=== PATIENT | male | born 1955 | race Caucasian/White ===

== ENCOUNTER → 2017-11-30 08:36 | Outpatient (CLI) | payer BC, SELFPAY ==
--- NOTE | 2017-11-30 08:54 | RAD_ITS ---
STUDY: X-RAY - LEFT SHOULDER REASON FOR EXAM: Male, 62 years old. Pain of the left shoulder. TECHNIQUE: 4 view(s) of the shoulder. COMPARISON: None. FINDINGS: Normally located glenohumeral joint with narrowing and marginal osteophytosis. Normal alignment of the acromioclavicular joint with advanced narrowing and marginal osteophytosis. Normal acromion. Height per trophy and degenerative cyst formation of the greater tubercle. The soft tissue structures are unremarkable. Normal visualized pulmonary apex. RAD/Shoulder min 2 Views IMPRESSION: Moderately advanced degenerative arthritis of the glenohumeral joint. 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 Hypertrophic and cystic degenerative changes of the greater tubercle. Electronically Signed: Sweetie Estrella MD at 16:53 EDT , Service support ,
--- NOTE | 2017-11-30 08:54 | RAD_ITS ---
STUDY: X-RAY - RIGHT SHOULDER REASON FOR EXAM: Male, 62 years old. Right shoulder pain TECHNIQUE: 4 view(s) of the shoulder. COMPARISON: None. FINDINGS: Normally located glenohumeral joint with narrowing and extensive marginal osteophytosis. Normally located acromioclavicular joint with moderately advanced degenerative arthrosis. Normal acromion. Large medial osteophyte of the humeral head. The soft tissue structures are unremarkable. Normal visualized pulmonary apex. RAD/Shoulder min 2 Views IMPRESSION: Narrowing and marginal osteophytosis of the glenohumeral joint. Moderately advanced degenerative arthrosis of the right acromioclavicular joint. Negative for fracture or dislocation. Electronically Signed: Sweetie Estrella MD at 17:30 EDT , Service support ,
[2017-11-30 10:25] LABS: Anion Gap 8 (5-15); BUN 26 mg/dL (7-18); BUN/Creat Ratio 19.8 RATIO (10-20); Calcium,Total 8.5 mg/dL (8.5-10.1); Chloride 109 mmol/L (98-107); Cholesterol 157 mg/dL (200); Creatinine, Serum 1.31 mg/dL (0.70-1.30); EST Glomerular Filtration Rate 59 mL/min (>60); Est Glom Filt Rate - Afr Amer 71 mL/min (>60); Glucose 85 mg/dL (74-106); High Density Lipoprotein 37 mg/dL; Potassium 4.1 mmol/L (3.5-5.1); Sodium Level 145 mmol/L (136-145); Triglycerides 159 mg/dL; Very Low Density Lipoprotein 32 mg/dL (5-40)
== END ==
LOC: MFPLAB 08:37 → MTRAD 08:38 → HPRAD 08:45
PROVIDERS: Family Provider Family Medicine; PCP Family Medicine; Visit Provider Family Medicine
DX: M19.012 Primary osteoarthritis, left shoulder (principal); M19.011 Primary osteoarthritis, right shoulder; M25.712 Osteophyte, left shoulder; M25.711 Osteophyte, right shoulder; I48.91 Unspecified atrial fibrillation
CPT/HCPCS: 36415; 73030; 80048; 80061

== ENCOUNTER → 2018-06-21 11:04 | Outpatient (CLI) | payer BC, SELFPAY | PROVIDERS: Family Provider Family Medicine; PCP Family Medicine; Visit Provider Family Medicine | DX: I10 Essential (primary) hypertension (principal) ==

== ENCOUNTER → 2018-06-21 14:22 | Outpatient (CLI) | payer BC, SELFPAY ==
[2018-06-21 12:48] LABS: Anion Gap 5 (5-15); BUN 21 mg/dL (7-18); BUN/Creat Ratio 17.1 RATIO (10-20); Calcium,Total 8.8 mg/dL (8.5-10.1); Chloride 103 mmol/L (98-107); Creatinine, Serum 1.23 mg/dL (0.70-1.30); EST Glomerular Filtration Rate 63 mL/min (>60); Est Glom Filt Rate - Afr Amer 76 mL/min (>60); Glucose 77 mg/dL (74-106); Potassium 3.5 mmol/L (3.5-5.1); Sodium Level 137 mmol/L (136-145)
--- OUTSIDE RECORDS SUMMARY | 2018-12-23 18:38 | XMS RPT_ITS | CCD ---
:1955 External Reference #:[id number] Author Organization [facility] Care Team Providers Name Role Phone Unavailable Unavailable Unavailable Allergies Reported Allergen Reaction(s) Severity Date of Onset Location Seasonal allergy 09-04-2012 - [facility] Main Translations: [ SEASONAL [place] Repository ALLERGIES] Medications Medication Name Sig Date Prescriber Location amLODIPine NORVASC 5 MG TABS One 05-03-2016 [facility] tablet by mouth daily Group ([id number]) AMLODIPINE BESYLATE [id number] Unique Fong PA-C NORVASC 10 MG TABS One tablet 05-03-2016 MD [facility] by mouth daily (35531) AMLODIPINE BESYLATE [id number] Brody Bae MD NORVASC 5 MG TABS One tablet 05-03-2016 [facility] by mouth daily (36975) AMLODIPINE BESYLATE [id number] Unique Fong PA-C NORVASC 10 MG TABS One tablet 05-03-2016 MD [facility] by mouth daily (95799) AMLODIPINE BESYLATE [id number] Brody Bae MD NORVASC 5 MG TABS One tablet 05-03-2016 [facility] by mouth daily (87114) AMLODIPINE BESYLATE [id number] Unique Fong PA-C NORVASC 5 MG TABS One tablet 05-03-2016 [facility] by mouth daily (46955) AMLODIPINE BESYLATE [id number] Unique Fong PA-C NORVASC 5 MG TABS One tablet 05-03-2016 Mia Vang RN [facility] by mouth daily (35663) AMLODIPINE BESYLATE [id number] Unique Fong PA-C fexofenadine FEXOFENADINE HCL 180 MG TABS One 02-02-2016 [facility] (24012) tablet by mouth daily FEXOFENADINE HCL [id number] Luisana A Kelsey RN FEXOFENADINE HCL 180 MG TABS One tablet by 02-02-2016 [facility] (96695) mouth daily FEXOFENADINE HCL 27342779702 Luisana A Kelsey RN FEXOFENADINE HCL 180 MG TABS One tablet by 02-02-2016 [facility] (18736) mouth daily FEXOFENADINE HCL 70570231643 Luisana A Kelsey RN FEXOFENADINE HCL 180 MG TABS One tablet by 02-02-2016 [facility] (07543) mouth daily FEXOFENADINE HCL 65234688298 Luisana A Kelsey RN FEXOFENADINE HCL 180 MG TABS One tablet by 02-02-2016 [facility] (19642) mouth daily FEXOFENADINE HCL 87610480958 Luisanaramila Coel RN lisinopril LISINOPRIL 20 MG TABS 02-02-2016 Mia Vang RN [facility] One tablet by mouth (20665) daily LISINOPRIL [id number] Unique Fong PA-C LISINOPRIL 10 MG TABS One 02-02-2016 Brody Bae MD [facility] tablet by mouth daily (62214) LISINOPRIL [id number] Brody Bae MD LISINOPRIL 20 MG TABS One 02-02-2016 Mia Vang RN [facility] tablet by mouth daily (33058) LISINOPRIL [id number] Unique Fong PA-C LISINOPRIL 10 MG TABS One 02-02-2016 Brody Bae MD [facility] tablet by mouth daily (42041) LISINOPRIL 49483785306 Brody Bae MD LISINOPRIL 20 MG TABS One 02-02-2016 Mia Vang RN [facility] tablet by mouth daily (12166) LISINOPRIL 21669723184 Unique Fong PA-C LISINOPRIL 10 MG TABS One 02-02-2016 Brody Bae MD [facility] tablet by mouth daily (10098) LISINOPRIL 22644361898 Brody Bae MD LISINOPRIL 20 MG TABS One 02-02-2016 Mia Vang RN [facility] tablet by mouth daily (92146) LISINOPRIL 18901047728 Unique Fong PA-C LISINOPRIL 10 MG TABS One 02-02-2016 Brody Bae MD [facility] tablet by mouth daily (16833) LISINOPRIL 57332996206 Brody Bae MD LISINOPRIL 20 MG TABS One 02-02-2016 Mia Vang RN [facility] tablet by mouth daily (84710) LISINOPRIL 14435961737 Unique Fong PA-C LISINOPRIL 10 MG TABS One 02-02-2016 Brody Bae MD [facility] tablet by mouth daily (63374) LISINOPRIL [id number] Brody Bae MD LORazepam LORAZEPAM 0.5 MG TABS One tablet 02-02-2016 [facility] (60654) by mouth twice daily as needed LORAZEPAM [id number] Luisana Cole RN LORAZEPAM 0.5 MG TABS One tablet by mouth 02-02-2016 [facility] (33327) twice daily as needed LORAZEPAM 75637987291 Luisana Cole RN LORAZEPAM 0.5 MG TABS One tablet by mouth 02-02-2016 [facility] (78322) twice daily as needed LORAZEPAM 17877548633 Luisana A Kelsey RN LORAZEPAM 0.5 MG TABS One tablet by mouth 02-02-2016 [facility] (67984) twice daily as needed LORAZEPAM [id number] Luisana A Kelsey RN LORAZEPAM 0.5 MG TABS One tablet by mouth 02-02-2016 [facility] (07783) twice daily as needed LORAZEPAM [id number] Luisana Edward Kelsey RN metoprolol TOPROL XL 50 MG [id number] 02-02-2016 Brody Bae MD [facility] One tablet by mouth daily (07799) METOPROLOL SUCCINATE [id number] Brody Bae MD METOPROLOL TARTRATE 50 MG TABS 02-02-2016 [facility] One tablet by mouth twice (70547) daily METOPROLOL TARTRATE [id number] Luisanaramila Cole RN TOPROL XL 50 MG [id number] One 02-02-2016 Brody Bae MD [facility] tablet by mouth daily (28268) METOPROLOL SUCCINATE 43430859805 Brody Bae MD METOPROLOL TARTRATE 50 MG TABS 02-02-2016 [facility] One tablet by mouth twice (18919) daily METOPROLOL TARTRATE 52120882396 Luisana Cole RN TOPROL XL 50 MG [id number] One 02-02-2016 Brody Bae MD [facility] tablet by mouth daily (24963) METOPROLOL SUCCINATE [id number] Brody Bae MD METOPROLOL TARTRATE 50 MG TABS 02-02-2016 [facility] One tablet by mouth twice (26392) daily METOPROLOL TARTRATE 45163584159 Luisanaramila Cole RN TOPROL XL 50 MG [id number] One 02-02-2016 Brody Bae MD [facility] tablet by mouth daily (17806) METOPROLOL SUCCINATE [id number] Brody Bae MD METOPROLOL TARTRATE 50 MG TABS 02-02-2016 [facility] One tablet by mouth twice (39382) daily METOPROLOL TARTRATE [id number] Luisana Cole RN TOPROL XL 50 MG [id number] One 02-02-2016 Brody Bae MD [facility] tablet by mouth daily (61740) METOPROLOL SUCCINATE 73220556802 Brody Bae MD METOPROLOL TARTRATE 50 MG TABS 02-02-2016 [facility] One tablet by mouth twice (70483) daily METOPROLOL TARTRATE 42396235071 Luisana Cole RN PARoxetine PAROXETINE HCL 20 MG TABS One 02-02-2016 [facility] (68714) tablet by mouth daily PAROXETINE HCL 17646812468 Luisana Cole RN PAROXETINE HCL 20 MG TABS One 02-01-2015 - 01-26-2017 [facility] (67587) tablet by mouth daily PAROXETINE HCL 80897784570 Unique Fong PA-C potassium chloride KLOR-CON M20 20 MEQ CR-TABS 02-02-2016 [facility] One tablet by mouth daily (55149) POTASSIUM CHLORIDE ISMAEL CR 63079045740 Luisana Cole RN KLOR-CON M20 20 MEQ CR-TABS One 02-01-2015 - 02-02-2016 [facility] (87313) tablet by mouth daily POTASSIUM CHLORIDE ISMAEL CR 07297839808 Brody Bae MD KLOR-CON M20 20 MEQ CR-TABS One 02-02-2016 [facility] (68057) tablet by mouth daily POTASSIUM CHLORIDE ISMAEL CR [id number] Luisana Cole RN KLOR-CON M20 20 MEQ CR-TABS One 02-01-2015 - 02-02-2016 [facility] (76696) tablet by mouth daily POTASSIUM CHLORIDE ISMAEL CR 93579058056 Brody Bae MD KLOR-CON M20 20 MEQ CR-TABS One 02-02-2016 [facility] (76601) tablet by mouth daily POTASSIUM CHLORIDE ISMAEL CR 97082717454 Luisana Cole RN rivaroxaban XARELTO 20 MG TABS One 02-02-2016 MD [facility] tablet by mouth daily (27054) RIVAROXABAN [id number] Brody Bae MD XARELTO 20 MG TABS One tablet 02-02-2016 MD [facility] by mouth daily (30570) RIVAROXABAN [id number] Brody Bae MD XARELTO 20 MG TABS One tablet 02-02-2016 MD [facility] by mouth daily (02897) RIVAROXABAN [id number] Brody Bae MD XARELTO 20 MG TABS One tablet 02-02-2016 Brody Bae MD [facility] by mouth daily (23486) RIVAROXABAN [id number] Brody Bae MD XARELTO 20 MG TABS One tablet 02-02-2016 MD [facility] by mouth daily (91064) RIVAROXABAN [id number] Brody Bae MD Problems Category Problem Name Status Date Location Acute and unspecified Renal failure syndrome Active 05-03-2016 - [facility] renal failure (52425) Cardiac dysrhythmias Persistent atrial Active 02-01-2016 - [facility] fibrillation (24876) Essential hypertension Hypertensive disorder Active 02-02-2016 - [facility] (62253) Non-Hodgkin`s lymphoma Follicular lymphoma, Active 06-18-2012 - [facility] unspecified, [place] (75353) intra-abdominal lymph nodes Other nutritional; Body mass index (BMI) Active 05-03-2016 - [facility] endocrine; and 31.0-31.9, adult (59450) metabolic disorders Unclassified Active 05-23-2018 - [facility] (33385) Unclassified Body mass index (BMI) Active 05-03-2016 - [facility] 31.0-31.9, adult (01934) Results Result Name Value Range Unit Interpretation Flag Date Location progress on 2018-05-21 Protein mass conc HNO ID: [id number] Normal 05-21-2018 [facility] Author: Yoko Green [facility] ([id number]) Service: (none) Author Type: (none) Type: Progress Notes Filed: 05/21/2018 9:26 AM Note Text: Radiology Service Progress Note PATIENT NAME: Sirisha De Leon DATE OF SERVICE: May 21, 2018 TIME: 9:26 AM PATIENT IDENTITY VERIFICATION COMPLETED USING TWO (2) METHODS: Patient confirmed name verbally and Date of . PATIENT GENDER DATA: Male PATIENT RELEVANT IMPLANT DATA REVIEWED: Not Applicable CONTRAST INDUCED NEPHROPATHY RISK FACTORS: Patient age > 60 years CREATININE: Creatinine Date Value Ref Range Status 07/30/2015 1.38 0.70 - 1.40 mg/dL Final 10/19/2014 1.34 0.70 - 1.40 mg/dL Final 08/21/2014 1.49 (H) 0.70 - 1.40 mg/dL Final Creatinine, Whole Blood (iSTAT) Date Value Ref Range Status 05/21/2018 1.30 0.70 - 1.40 mg/dL Final 11/05/2017 1.20 0.70 - 1.40 mg/dL Final 11/06/2016 1.20 0.70 - 1.40 mg/dL Final eGFR-All Other Races Date Value Ref Range Status 05/21/2018 55 . Final Comment: eGFR (Estimated GFR) Units of measure: mL/min/1.73 meters squared eGFR is derived from the reexpressed MDRD Study equation using the following parameters: serum creatinine, age, gender and race. The creatinine assay has been calibrated to be traceable to IDMS. An eGFR <60 mL/min/1.73m2 for >3 months is consistent with chronic kidney disease. Refer to KDOQI guidelines for clinical interpretation. In patients with unstable renal function, e.g. those with acute kidney injury, the eGFR may not accurately reflect actual GFR. eGFR- Date Value Ref Range Status 05/21/2018 >60 Final P.O.C.T. RESULTS: POC done: Yes, See Lab Tab May 21, 2018 RADIOLOGIST NOTIFIED?: No ALLERGIES: Reviewed and unchanged CONTRAST ALLERGY: NO. PERIPHERAL IV ACCESS: Ambulatory: IV type: A peripheral IV was started in the Left antecubital site with a Angio cath: 22 gauge., Site assessment: Clean,Dry and Intact, Site disposition Discontinued RADIOLOGY DEPARTMENT: CT; Exam(s) Completed: Abdomen/Pelvis SIGNED BY: Yoko Green Ct May 21, 2018 9:26 AM lab report: basic metabolic profile (bmp) on null BUN/Creatinine 10.8 RATIO 10-20 Invalid 02-23-2016 - [facility] Ratio Interpretation 02-23-2016 [facility] Code (93901) Calcium 9.1 8.5-10.1 mg/d Invalid 02-23-2016 - [facility] L Interpretation 02-23-2016 [facility] Code (73859) eGFR (non-black) 55 >60 mL/m Low 02-23-2016 - [facility] in 02-23-2016 [facility] (92763) eGFR (non-black) 67 >60 mL/m Invalid 02-23-2016 - [facility] in Interpretation 02-23-2016 [facility] Code (40701) EST GFR - AA 67 >60 mL/m Invalid 02-23-2016 - [facility] in Interpretation 02-23-2016 [facility] Code (32673) replaced document: midmark ecg observations on null EKG QRS axis 99 deg Invalid 05-05-2016 - [facility] Interpretation 05-05-2016 [facility] (35962) electrocardiogram Atrial Invalid 05-05-2016 - [facility] interpretation fibrillation - Interpretation 05-05-2016 Heart frequent ectopic [facility] ventricular beat (40702) s # VECs = 2- Nonspecific T-abnormality. Low voltage -possible pulmonary disease. ABNORMAL GE use only - for 424 ms Invalid 05-05-2016 - [facility] import when Interpretation 05-05-2016 Heart terms are not Code Group otherwise specified (76567) Interpretation Atrial Invalid 05-05-2016 - [facility] fibrillation - Interpretation 05-05-2016 Heart frequent ectopic Code [facility] ventricular beat (13999) s # VECs = 2- Nonspecific T-abnormality. Low voltage -possible pulmonary disease. ABNORMAL P [place] 1 deg Invalid 05-05-2016 - [facility] Interpretation 05-05-2016 [facility] (59855) P wave axis, 1 deg Invalid 05-05-2016 - [facility] electrocardiogram Interpretation 05-05-2016 [facility] (17958) WI Interval 0 ms Invalid 05-05-2016 - [facility] Interpretation 05-05-2016 [facility] (21176) WI interval, 0 ms Invalid 05-05-2016 - [facility] electrocardiogram Interpretation 05-05-2016 [facility] (77130) Pulse (Heart Rate) 76 BPM /min Invalid 05-05-2016 - [facility] Interpretation 05-05-2016 [facility] (55438) QRS axis, 99 deg Invalid 05-05-2016 - [facility] electrocardiogram Interpretation 05-05-2016 [facility] (04298) QRS Duration 86 ms Invalid 05-05-2016 - [facility] Interpretation 05-05-2016 [facility] (81521) QRS duration, 86 ms Invalid 05-05-2016 - [facility] electrocardiogram Interpretation 05-05-2016 [facility] (39380) QT Interval new path ms Invalid 05-05-2016 - [facility] Interpretation 05-05-2016 [facility] (37646) QT interval, new path ms Invalid 05-05-2016 - [facility] electrocardiogram Interpretation 05-05-2016 [facility] (26517) QTc [place] 424 ms Invalid 05-05-2016 - [facility] Interpretation 05-05-2016 [facility] (82488) T [place] 90 deg Invalid 05-05-2016 - [facility] Interpretation 05-05-2016 [facility] (53322) T wave axis, 90 deg Invalid 05-05-2016 - [facility] electrocardiogram Interpretation 05-05-2016 [facility] (64041) office visit: mmm on null Dietary management yes Invalid Interpretation 01-26-2017 [facility] education, guidance, Code 01-26-2017 Group (50454) and counseling (procedure) Documentation of Done Invalid Interpretation 01-26-2017 - [facility] current medications Code 01-26-2017 Group (89131) (procedure) Fall risk assessment No Invalid Interpretation 01-26-2017 - [facility] Code 01-26-2017 Group (80879) Left ventricular 60 % Invalid Interpretation 01-26-2017 - [facility] Ejection fraction Code 01-26-2017 Group (92571) Dietary management yes Invalid Interpretation 05-03-2016 - [facility] education, guidance, Code 05-03-2016 Group (36752) and counseling (procedure) office visit on null Documentation of Done Invalid Interpretation 05-01-2017 - [facility] current medications Code 05-01-2017 Group (18950) (procedure) Fall risk assessment No Invalid Interpretation 05-01-2017 - [facility] Code 05-01-2017 Group (62388) Protein mass conc Done Invalid Interpretation 05-01-2017 - [facility] Code 05-01-2017 Group (58476) Documentation of Done Invalid Interpretation 08-01-2016 - [facility] current medications Code 08-01-2016 Group (04254) (procedure) hepatic functn panel on 2018-05-21 Albumin mass conc 4.5 3.9-4.9 g/dL Normal 05-21-2018 [facility] (12594) Comment: Performed By: #### LD6, HFP #### [facility] [address], [place] [address] ALP enzyme act/vol 95 38-113 U/L Normal 05-21-2018 [facility] (93646) Comment: Performed By: #### LD6, HFP #### [facility] [address] [place], [place] [address] ALT enzyme act/vol 13 10-54 U/L Normal 05-21-2018 [facility] (95625) Comment: Performed By: #### LD6, HFP #### [facility] [address] [place], [place] [address] AST enzyme act/vol 24 14-40 U/L Normal 05-21-2018 [facility] (28752) Comment: Performed By: #### LD6, HFP #### [facility] [address] [place], [place] [address] Bilirubin mass conc 0.7 0.2-1.3 mg/dL Normal 05-21-2018 [facility] (13388) Comment: Performed By: #### LD6, HFP #### [facility] [address] [place], [place] [id number] Bilirubin,Conjugated <0.2 <0.2 Normal 05-21-2018 [facility] (54512) Comment: Performed By: #### LD6, HFP #### [facility] [address] [place], [place] [id number] Protein mass conc 6.8 6.3-8.0 g/dL Normal 05-21-2018 [facility] (52704) Comment: Performed By: #### LD6, HFP #### [facility] [address] [place] [address] progress on 2018-11-21 Protein mass HNO ID: [id number] Normal 11-21-2018 [facility] conc Author: Americo Mayer [place] ([id number]) Service: ? Author Type: Physician Type: Progress Notes Filed: 11/21/2018 10:05 AM Note Text: Diagnosis: 1) Follicular lymphoma. HPI: The patient is a 63 year-old male who had a history of borderline hypertension. Over the year prior to initial presentation/evaluation for lymphoma, he noted he had been feeling more fatigued. 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 He noticed that he was having more trouble keeping his energy up to do his job. He also noticed more abdominal swelling. Several weeks prior to presentation, he noted right lower extremity edema and that prompted him to seek medical care. On exam he was found to have an abdominal mass prominent in the left upper quadrant. A CT scan was obtained. It showed massive retroperitoneal adenopathy. The patient was sent for a CT-guided biopsy. The tissue diagnosis rendered was that of a follicular lymphoma grade 1 or 2. He underwent ureteral stent placed 06/07/12. Received R-CHOP x6. Completed 10/17/12. Received maintenance rituximab. Presents for ongoing management. Interim history: Has no complaints today. Again had several days' worth of diarrhea this past weekend. Inquired about this today--consistently has this several days prior to OV here (and prior to drinking oral contrast for pre-appointment CT). Normal appetite. No abdominal pain or nausea. 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 PMH, medications and allergies as below personally reviewed by me today. Any changes documented in appropriate section. ROS: Constitutional: Denies episodes of fever and night sweats. Neuro: Denies SCHWAB, vertigo, dizziness and imbalance. HEENT: No recent change in voice, vision or hearing. Resp: Denies cough, wheeze and hemoptysis. Denies shortness of breath at rest. Denies PETERS. CVS: No chest pain/pressure. No PND or orthopnea. No LE swelling/edema. GI: See above. : Denies dysuria or gross hematuria. No symptoms of bladder outlet obstruction. Endo: Denies hot flashes. Denies polyuria and polydipsia. Denies heat and cold intolerance. Musculoskeletal: Denies bone, back, joint and muscular pain. Derm: Denies rash. Denies jaundice and diffuse pruritis. Heme: Denies unusual bleeding and unexplained bruising. Psych: Normal mood. PHYSICAL EXAM: Vitals: Blood pressure 156/92, pulse 60, temperature 36.8 ?C (98.3 ?F), temperature source Oral, weight 92.8 kg (204 lb 8 oz). Well-appearing and in no acute distress. EYES: Sclerae are anicteric bilaterally. NECK: Supple. LYMPHATIC: There is no palpable cervical, supraclavicular or axillary adenopathy. RESPIRATORY: Inspiratory breath sounds are of normal intensity in all reynolds. CARDIOVASCULAR: Rhythm is regular. Normal intensity S1/S2. There is no gallop or murmur. ABDOMEN: The abdomen is nondistended. There is no organomegaly. Non tender. No mass. Extremities: Trace edema b/l--stable. SKIN: No jaundice or rash. No petechiae. NEUROLOGIC: site safety coordinator II-XII are grossly intact. No focal motor weakness. ASSESSMENT/PLAN: 1) Follicular lymphoma. Assessment: -Pathology at [facility] consistent with dx grade 1-2 disease, but had presented as aggressive disease. -Tolerated chemotherapy very well. -Tolerated maintenance rituximab well without noticeable side effect. -I personally reviewed CT images and independently verified and agreed with the radiologist's findings. SD. -No indication for treatment at this time. Has had stable disease for 6 years. No symptoms. -Again reviewed plan of observation. Will decrease frequency of CTs due to disease stability and frequency of radiation exposure. Plan: -OV in about 6 months. -CTs in a year. Americo Mayer, clinical lists update: preload on null Left ventricular 60 % Invalid 07-31-2016 - [facility] Ejection fraction Interpretation Code 07-31-2016 [facility] (40235) Anion gap 14 mmol/L Invalid 05-02-2016 - [facility] Interpretation Code 05-02-2016 [facility] (60155) Anion gap 4 molar 14 Invalid 05-02-2016 - [facility] conc Interpretation Code 05-02-2016 [facility] (66968) Chloride 104 mmol/L Invalid 05-02-2016 - [facility] Interpretation Code 05-02-2016 [facility] (57204) CO2 24 mmol/L Invalid 05-02-2016 - [facility] Interpretation Code 05-02-2016 [facility] (77112) CO2 ppres (BldV) 24 mmol/L Invalid 05-02-2016 - [facility] Interpretation Code 05-02-2016 [facility] (79331) Creatinine 1.30 mg/dL Invalid 05-02-2016 - [facility] Interpretation Code 05-02-2016 [facility] (21244) Glucose 95 mg/dL Invalid 05-02-2016 - [facility] Interpretation Code 05-02-2016 [facility] (23634) Glucose mass conc 95 mg/dL Invalid 05-02-2016 - [facility] Interpretation Code 05-02-2016 [facility] (74821) Potassium 3.9 mmol/L Invalid 05-02-2016 - [facility] Interpretation Code 05-02-2016 [facility] (94066) Sodium 142 mmol/L Invalid 05-02-2016 - [facility] Interpretation Code 05-02-2016 [facility] (28261) Urea nitrogen 16 mg/dL Invalid 05-02-2016 - [facility] Interpretation Code 05-02-2016 [facility] (34465) Tobacco smoking Never smoker Invalid 02-02-2016 - [facility] status NHIS Interpretation Code 02-02-2016 [facility] (84490) Tobacco use CPHS Never smoker Invalid 02-02-2016 - [facility] Interpretation Code 02-02-2016 [facility] (80663) Cholesterol 169 mg/dL Invalid 01-31-2016 - [facility] Interpretation Code 01-31-2016 [facility] (91565) eGFR (non-black) 54 mL/min/ Low 01-31-2016 - [facility] 1.73m2 01-31-2016 [facility] (72500) eGFR (non-black) 66 mL/min/ Invalid 01-31-2016 - [facility] 1.73m2 Interpretation Code 01-31-2016 [facility] (45547) Glomerular 66 mL/min/ Invalid 01-31-2016 - [facility] Filtration Rate 1.73m2 Interpretation Code 01-31-2016 [facility] (61375) HDL Cholesterol 41 mg/dL Invalid 01-31-2016 - [facility] Interpretation Code 01-31-2016 [facility] (19362) LDL Cholesterol 92 mg/dL Invalid 01-31-2016 - [facility] Interpretation Code 01-31-2016 [facility] (70391) Lipoprotein.pre-be 36 mg/dL Invalid 01-31-2016 - [facility] ta mass conc Interpretation Code 01-31-2016 [facility] (66765) Triglyceride 182 mg/dL Invalid 01-31-2016 - [facility] Interpretation Code 01-31-2016 [facility] (29027) very low density 36 mg/dL Invalid 01-31-2016 - [facility] lipoproteins Interpretation Code 01-31-2016 [facility] (18266) [facility] abs gr + cbc on 2018-05-21 Absol Gran Count 3.58 1.45-7.50 k/uL Normal 05-21-2018 [facility] (36252) Erythrocyte distribution 13.9 11.5-15.0 % Normal 05-21-2018 [facility] width Ratio (RBC) [place] (51062) Hematocrit Volume 45.1 39.0-51.0 % Normal 05-21-2018 [facility] Fraction (d) [place] (43324) Hemoglobin mass conc 15.5 13.0-17.0 g/dL Normal 05-21-2018 [facility] (Bld) [place] (55827) MCH Entitic mass (RBC) 30.0 26.0-34.0 pg Normal 05-21-2018 [facility] (93540) MCHC mass conc (RBC) 34.4 30.5-36.0 g/dL Normal 05-21-2018 [facility] (45784) MCV Entitic volume (RBC) 87.2 80.0-100.0 fL Normal 05-21-2018 [facility] (91218) Platelet mean volume 11.2 9.0-12.7 fL Normal 05-21-2018 [facility] Entitic volume (Bld) [place] (20845) Comment: Result Comment: Test performed at: [facility], [address] [place] [address]. RBC #/vol (Bld) 5.17 4.20-6.00 m/uL Normal 05-21-2018 [facility] (05039) WBC #/vol (Bld) 5.52 3.70-11.00 k/uL Normal 05-21-2018 [facility] (84945) [facility] Platelet Cnt 200 150-400 k/uL Normal 05-21-2018 [facility] (96484) antimony cbc and diff on 2018-11-18 Eosinophils/100 WBC (Bld) 2.9 % Normal 11-18-2018 [facility] ([id number]) Erythrocyte distribution 13.9 11.5-15.0 % Normal 11-18-2018 [facility] width Ratio (RBC) [place] ([id number]) Hematocrit Volume Fraction 47.2 39.0-51.0 % Normal 11-18-2018 [facility] (Bld) [place] ([id number]) Hemoglobin mass conc (Bld) 16.1 13.0-17.0 g/dL Normal 11-18-2018 [facility] ([id number]) Lymphocytes/100 WBC (Bld) 13.9 % Normal 11-18-2018 [facility] (21230) MCH Entitic mass (RBC) 29.4 26.0-34.0 pg Normal 11-18-2018 [facility] ([id number]) MCHC mass conc (RBC) 34.1 30.5-36.0 g/dL Normal 11-18-2018 [facility] ([id number]) MCV Entitic volume (RBC) 86.3 80.0-100.0 fL Normal 11-18-2018 [facility] ([id number]) Platelet mean volume 10.9 9.0-12.7 fL Normal 11-18-2018 [facility] Entitic volume (Bld) [place] ([id number]) Comment: Result Comment: Test performed by: [facility] [place], [address] [place] [address]. RBC #/vol (Bld) 5.47 4.20-6.00 m/uL Normal 11-18-2018 [facility] ([id number]) WBC #/vol (Bld) 6.20 3.70-11.00 k/uL Normal 11-18-2018 [facility] ([id number]) [place] Abs Baso 0.05 <0.11 k/uL Normal 11-18-2018 [facility] ([id number]) [place] Abs Eos 0.18 <0.46 k/uL Normal 11-18-2018 [facility] ([id number]) [place] Abs Lymp 0.86 1.00-4.00 k/uL Low 11-18-2018 [facility] ([id number]) [place] Abs Iberia 0.48 <0.87 k/uL Normal 11-18-2018 [facility] (33855) [place] Abs Neut 4.63 1.45-7.50 k/uL Normal 11-18-2018 [facility] ([id number]) [place] Baso% 0.8 % Normal 11-18-2018 [facility] (43458) [place] Iberia% 7.7 % Normal 11-18-2018 [facility] (06863) [place] Neut% 74.7 % Normal 11-18-2018 [facility] ([id number]) [place] Platelet Cnt 193 150-400 k/uL Normal 11-18-2018 [facility] ([id number]) cnovsp on 2018-11-21 CNOVSP Visit (SP) Office ([place]) Normal 11-21-2018 [place] SIRISHA Gallegos ([id number]) 1955 [facility] Date Time Provider Department ([id number]) 11/21/18 9:10 AM AMERICO MAYER During your visit today, we recorded the following information about you: Temperature Pulse Blood pressure Weight 98.3 degrees 60/minute 156/92 92.8 kg Americo Mayer DO 11/21/2018 10:05 AM Signed Diagnosis: 1) Follicular lymphoma. HPI: The patient is a 63 year-old male who had a history of borderline hypertension. Over the year prior to initial presentation/evaluation for lymphoma, he noted he had been feeling more fatigued. 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 He noticed that he was having more trouble keeping his energy up to do his job. He also noticed more abdominal swelling. Several weeks prior to presentation, he noted right lower extremity edema and that prompted him to seek medical care. On exam he was found to have an abdominal mass prominent in the left upper quadrant. A CT scan was obtained. It showed massive retroperitoneal adenopathy. The patient was sent for a CT-guided biopsy. The tissue diagnosis rendered was that of a follicular lymphoma grade 1 or 2. He underwent ureteral stent placed 06/07/12. Received R-CHOP x6. Completed 10/17/12. Received maintenance rituximab. Presents for ongoing management. Interim history: Has no complaints today. Again had several days' worth of diarrhea this past weekend. Inquired about this today--consistently has this several days prior to OV here (and prior to drinking oral contrast for pre-appointment CT). Normal appetite. No abdominal pain or nausea. 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 PMH, medications and allergies as below personally reviewed by me today. Any changes documented in appropriate section. ROS: Constitutional: Denies episodes of fever and night sweats. Neuro: Denies SCHWAB, vertigo, dizziness and imbalance. HEENT: No recent change in voice, vision or hearing. Resp: Denies cough, wheeze and hemoptysis. Denies shortness of breath at rest. Denies PETERS. CVS: No chest pain/pressure. No PND or orthopnea. No LE swelling/edema. GI: See above. : Denies dysuria or gross hematuria. No symptoms of bladder outlet obstruction. Endo: Denies hot flashes. Denies polyuria and polydipsia. Denies heat and cold intolerance. Musculoskeletal: Denies bone, back, joint and muscular pain. Derm: Denies rash. Denies jaundice and diffuse pruritis. Heme: Denies unusual bleeding and unexplained bruising. Psych: Normal mood. PHYSICAL EXAM: Vitals: Blood pressure 156/92, pulse 60, temperature 36.8 ?C (98.3 ?F), temperature source Oral, weight 92.8 kg (204 lb 8 oz). Well-appearing and in no acute distress. EYES: Sclerae are anicteric bilaterally. NECK: Supple. LYMPHATIC: There is no palpable cervical, supraclavicular or axillary adenopathy. RESPIRATORY: Inspiratory breath sounds are of normal intensity in all reynolds. CARDIOVASCULAR: Rhythm is regular. Normal intensity S1/S2. There is no gallop or murmur. ABDOMEN: The abdomen is nondistended. There is no organomegaly. Non tender. No mass. Extremities: Trace edema b/l--stable. SKIN: No jaundice or rash. No petechiae. NEUROLOGIC: site safety coordinator II-XII are grossly intact. No focal motor weakness. ASSESSMENT/PLAN: 1) Follicular lymphoma. Assessment: -Pathology at [facility] consistent with dx grade 1-2 disease, but had presented as aggressive disease. -Tolerated chemotherapy very well. -Tolerated maintenance rituximab well without noticeable side effect. -I personally reviewed CT images and independently verified and agreed with the radiologist's findings. SD. -No indication for treatment at this time. Has had stable disease for 6 years. No symptoms. -Again reviewed plan of observation. Will decrease frequency of CTs due to disease stability and frequency of radiation exposure. Plan: -OV in about 6 months. -CTs in a year. 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) [C82.98] Order(s):potassium chloride ER (K-DUR, KLOR-CON) 20 mEq tabletTake 1 tablet by mouth once daily.Disp: 30 tabletRfl: 5 Follow-up and Disposition History Recorded Prescriptions as of 11/21/2018 Sig: POTASSIUM CHLORIDE ER 20 MEQ * Take 1 tablet by mouth once d* LISINOPRIL 20 MG TABLET Take 20 mg by mouth once ashley* LORAZEPAM 0.5 MG TABLET Take 0.5 mg by mouth twice da* RIVAROXABAN 20 MG TABLET Take 20 mg by mouth daily wit* FEXOFENADINE-PSEUDOEPHEDRINE * Take 1 tablet by mouth once d* IBUPROFEN 100 MG TABLET Take 100 mg by mouth every 6 * * ACETAMINOPHEN 500 MG TABLET Take 500 mg by mouth every 8 * * METOPROLOL SUCCINATE ER 50 MG* Take 50 mg by mouth once ashley* * BEE POLLEN ORAL Take 1 tablet by mouth as nee* AMLODIPINE 10 MG TABLET Take 10 mg by mouth once ashley* Problem List As Of Date 11/21/2018 Noted Resolved Nodular lymphoma of lymph nodes of multiple sit*INVALID FOR* Drug induced neutropenia(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 >60 Normal 05-21-2018 [facility] (10358) GFR/1.73 sq M predicted 56 . Normal 05-21-2018 [facility] among non-blacks MDRD [place] ([id number]) vol rate/area (S/P/Bld) Comment: Result Comment: eGFR (Estimated GFR) Units of measure: mL/min/1.73 meters squared eGFR is derived from the reexpressed MDRD Study equation using the following parameters: serum creatinine, age, gender and race. The creatinine assay has been calibrated to be traceable to IDMS. An eGFR <60 mL/min/1.73m2 for >3 months is consistent with chronic kidney disease. Refer to KDOQI guidelines for clinical interpretation. In patients with unstable renal function, e.g. those with acute kidney injury, the eGFR may not accurately reflect actual GFR. Glucose mass conc 107 65-100 mg/dL High 05-21-2018 [facility] (44706) Ionized Calcium, WB 1.11 1.08-1.30 mmol/L Normal 05-21-2018 [facility] (50096) Comment: Result Comment: Please note: This value represents ionized calcium not total calcium. Potassium molar conc 3.5 3.5-5.0 mmol/L Normal 05-21-2018 [facility] (64373) Sodium molar conc 142 135-146 mmol/L Normal 05-21-2018 [facility] ([id number]) TCO2, Whole Blood 26 23-32 mmol/L Normal 05-21-2018 [facility] (62826) Urea nitrogen mass conc 24 10-25 mg/dL Normal 05-21-2018 [facility] (31877) basic metabolic panl on 2018-11-18 Anion gap molar 8 9-18 mmol/L Low 11-18-2018 [facility] (95639) Calcium mass conc 9.5 8.5-10.2 mg/dL Normal 11-18-2018 [facility] (80878) Chloride molar conc 103 97-105 mmol/L Normal 11-18-2018 [facility] (72439) CO2 molar conc 30 22-30 mmol/L Normal 11-18-2018 [facility] (24617) Creatinine mass 1.20 0.73-1.22 mg/dL Normal 11-18-2018 [facility] (02523) eGFR- Amer. >60 Normal 11-18-2018 [facility] (28236) GFR/1.73 sq M >60 mL/min/{1.73_m2 Normal 11-18-2018 [facility] predicted among } [place] ([id number]) non-blacks MDRD vol rate/area (S/P/Bld) Comment: Result Comment: eGFR (Estimated GFR) Units of measure: mL/min/1.73 meters squared eGFR is derived from the reexpressed MDRD Study equation using the following parameters: serum creatinine, age, gender and race. The creatinine assay has been calibrated to be traceable to IDMS. An eGFR <60 mL/min/1.73m2 for >3 months is consistent with chronic kidney disease. Refer to KDOQI guidelines for clinical interpretation. In patients with unstable renal function, e.g. those with acute kidney injury, the eGFR may not accurately reflect actual GFR. Glucose mass conc 105 74-99 mg/dL High 11-18-2018 [facility] (05734) Potassium molar conc 3.7 3.7-5.1 mmol/L Normal 11-18-2018 [facility] ([id number]) Sodium molar conc 141 136-144 mmol/L Normal 11-18-2018 [facility] (41434) Urea nitrogen mass conc 14 9-24 mg/dL Normal 11-18-2018 [facility] ([id number]) hepatic functn panel on 2018-11-18 Albumin mass conc 4.6 3.9-4.9 g/dL Normal 11-18-2018 [facility] (92131) ALP enzyme act/vol 104 38-113 U/L Normal 11-18-2018 [facility] (79747) ALT enzyme act/vol 12 10-54 U/L Normal 11-18-2018 [facility] (35186) AST enzyme act/vol 14 14-40 U/L Normal 11-18-2018 [facility] (70816) Bilirubin mass conc 0.7 0.2-1.3 mg/dL Normal 11-18-2018 [facility] (43235) Bilirubin,Conjugated <0.2 <0.2 Normal 11-18-2018 [facility] (45134) Protein mass conc 6.7 6.3-8.0 g/dL Normal 11-18-2018 [facility] ([id number]) progress on 2018-11-18 Protein mass conc HNO ID: [id number] Normal 11-18-2018 [facility] Author: Yoko Green [facility] ([id number]) Service: ? Author Type: ? Type: Progress Notes Filed: 11/18/2018 9:53 AM Note Text: Radiology Service Progress Note DATE OF SERVICE: November 18, 2018 TIME: 9:53 AM PATIENT IDENTITY VERIFICATION COMPLETED USING TWO (2) METHODS: Patient confirmed name verbally and Date of . PATIENT GENDER DATA: Male PATIENT RELEVANT IMPLANT DATA REVIEWED: Not Applicable ALLERGIES: Reviewed and unchanged CONTRAST ALLERGY: NO. EXAM: CT -CONTRAST INDUCED NEPHROPATHY RISK FACTORS: Patient age > 60 years CREATININE: Creatinine Date Value Ref Range Status 11/18/2018 1.20 0.73 - 1.22 mg/dL Final 07/30/2015 1.38 0.70 - 1.40 mg/dL Final 10/19/2014 1.34 0.70 - 1.40 mg/dL Final Creatinine, Whole Blood (iSTAT) Date Value Ref Range Status 05/21/2018 1.30 0.70 - 1.40 mg/dL Final 11/05/2017 1.20 0.70 - 1.40 mg/dL Final 11/06/2016 1.20 0.70 - 1.40 mg/dL Final eGFR-All Other Races Date Value Ref Range Status 11/18/2018 >60 . Final Comment: eGFR (Estimated GFR) Units of measure: mL/min/1.73 meters squared eGFR is derived from the reexpressed MDRD Study equation using the following parameters: serum creatinine, age, gender and race. The creatinine assay has been calibrated to be traceable to IDMS. An eGFR <60 mL/min/1.73m2 for >3 months is consistent with chronic kidney disease. Refer to KDOQI guidelines for clinical interpretation. In patients with unstable renal function, e.g. those with acute kidney injury, the eGFR may not accurately reflect actual GFR. eGFR- Date Value Ref Range Status 11/18/2018 >60 Final P.O.C.T. RESULTS: POC done: Yes, See Lab Tab November 18, 2018 TREATMENT: N/A PERIPHERAL IV DATA: Ambulatory: A peripheral IV was started in the Left antecubital site with a Angio cath: 22 gauge. RADIOLOGY DEPARTMENT: CT; Exam(s) Completed: Chest Abdomen Pelvis SIGNATURE: Yoko Green Ct PATIENT NAME: Sirisha De Leon DATE: November 18, 2018 TIME: 9:53 AM ld on 2018-11-18 LD 157 135-225 U/L Normal 11-18-2018 [facility] ([id number]) ct abd/pel w ivcon on 2018-11-18 CT ABD/PEL W * * *Final Report* * * Normal 11-18-2018 [facility] IVCON DATE OF EXAM: Nov 18 2018 9:50AM [place] ([id number]) [facility] 0530 - CT ABD/PEL W IVCON / PROCEDURE REASON: Follicular lymphoma of intra-abdominal lymph nodes, unspecified follicular lymph * * * * Physician Interpretation * * * * EXAMINATION: CT CHEST WITH IV CONTRAST and CT ABDOMEN AND PELVIS WITH IV CONTRAST CLINICAL HISTORY: Follicular lymphoma, stage III/IV, tx not indicated, follow up TECHNIQUE: CT of the chest from the thoracic inlet to the upper abdomen was performed following IV contrast. CT of the abdomen and pelvis was performed using standard technique, scanning from just above the dome of the diaphragm to the symphysis pubis. MQ: [id number]_4 Contrast: IV: 150 ml of Omnipaque 300 Oral: 50 ml of 50ML Omnipaque [address] Radiation dose: Integrated Dose-length product (DLP) for this visit = 927 mGy*cm. CT Dose Reduction Employed: Automated exposure control(AEC) and iterative recon COMPARISON: CT abdomen and pelvis 06-[address] chest 11/06/2016. RESULT: Limitations: None. Chest: Lines, tubes, and devices: None. Lung parenchyma and pleura: No consolidation. Stable 4 mm density periphery posterior lateral LEFT lung base (5:83). No pleural effusion. Central airways are patent. Thoracic inlet, heart, and mediastinum: Right hilar lymph node similar to prior study upper range normal in size measuring 6 x 10 mm. No mediastinal or axillary lymphadenopathy. The thoracic aorta and main pulmonary artery are normal in caliber. The cardiac chambers are normal in size. Coronary artery calcification. No pericardial effusion or thickening. Bones/Soft Tissues: Unremarkable Abdomen / Pelvis: Liver: No mass. Biliary: No bile duct dilation. Gallbladder is unremarkable. Spleen: No mass. No splenomegaly. Pancreas: No mass or duct dilation. Adrenals: No mass. Kidneys: No mass, calculus or hydronephrosis. GI tract: No dilation or wall thickening. There is sigmoid diverticulosis. Lymph nodes: Stable confluent periaortic and pericaval soft tissue density 2.2 x 4.7 cm in maximal dimensions at this same level there is a stable preaortic soft tissue density measuring about 1.3 x 2.7 cm. Just LEFT lateral to this preaortic density is a LEFT-sided density measuring 2.3 x 1.0 cm in axial dimensions and a posterior lateral density measuring 1.6 x 1.9 cm in axial dimensions Slightly superior in the midline there is a density anterior to the aorta measuring 1.5 x 0.6 cm consistent with mesenteric lymph node. Medial to the LEFT renal hilum is a stable nodular density most likely a lymph node about 1.0-1.1 cm in diameter (8:51). Mesentery/Peritoneum: Stable 1.6 cm LEFT upper pelvic low-attenuation density (8:79). Retroperitoneum: No mass. 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 The SMA are patent with inferior atherosclerotic mural thrombus. The portal vein and branches, splenic vein, SMV, and hepatic veins are patent. Pelvis: No mass, ascites or fluid collection. Bones/Soft Tissues: Degenerative changes. IMPRESSION: Stable peritoneal retroperitoneal densities consistent with adenopathy. Stable low-attenuation nonspecific LEFT upper pelvic density possibly low-attenuation lymph node. No developing mass in the chest. No thoracic adenopathy. 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 Rubber Mill Tender: PSCB Transcribe Date/Time: Nov 19 2018 2:04P Dictated by : ESTEVAN ROTHMAN MD This examination was interpreted and the report reviewed and electronically signed by: ESTEVAN ROTHMAN MD on Nov 19 2018 2:32PM EST [id number] ct chest w ivcon on 2018-11-18 CT CHEST W * * *Final Report* * * Normal 11-18-2018 [facility] IVCON DATE OF EXAM: Nov 18 2018 9:50AM [place] ([id number]) [facility] 0539 - CT CHEST W IVCON / PROCEDURE REASON: Follicular lymphoma of intra-abdominal lymph nodes, unspecified follicular lymph * * * * Physician Interpretation * * * * EXAMINATION: CT CHEST WITH IV CONTRAST and CT ABDOMEN AND PELVIS WITH IV CONTRAST CLINICAL HISTORY: Follicular lymphoma, stage III/IV, tx not indicated, follow up TECHNIQUE: CT of the chest from the thoracic inlet to the upper abdomen was performed following IV contrast. CT of the abdomen and pelvis was performed using standard technique, scanning from just above the dome of the diaphragm to the symphysis pubis. MQ: CTCAPW_4 Contrast: IV: 150 ml of Omnipaque 300 Oral: 50 ml of 50ML Omnipaque [address] Radiation dose: Integrated Dose-length product (DLP) for this visit = 927 mGy*cm. CT Dose Reduction Employed: Automated exposure control(AEC) and iterative recon COMPARISON: CT abdomen and pelvis 06-[address] chest 11/06/2016. RESULT: Limitations: None. Chest: Lines, tubes, and devices: None. Lung parenchyma and pleura: No consolidation. Stable 4 mm density periphery posterior lateral LEFT lung base (5:83). No pleural effusion. Central airways are patent. Thoracic inlet, heart, and mediastinum: Right hilar lymph node similar to prior study upper range normal in size measuring 6 x 10 mm. No mediastinal or axillary lymphadenopathy. The thoracic aorta and main pulmonary artery are normal in caliber. The cardiac chambers are normal in size. Coronary artery calcification. No pericardial effusion or thickening. Bones/Soft Tissues: Unremarkable Abdomen / Pelvis: Liver: No mass. Biliary: No bile duct dilation. Gallbladder is unremarkable. Spleen: No mass. No splenomegaly. Pancreas: No mass or duct dilation. Adrenals: No mass. Kidneys: No mass, calculus or hydronephrosis. GI tract: No dilation or wall thickening. There is sigmoid diverticulosis. Lymph nodes: Stable confluent periaortic and pericaval soft tissue density 2.2 x 4.7 cm in maximal dimensions at this same level there is a stable preaortic soft tissue density measuring about 1.3 x 2.7 cm. Just LEFT lateral to this preaortic density is a LEFT-sided density measuring 2.3 x 1.0 cm in axial dimensions and a posterior lateral density measuring 1.6 x 1.9 cm in axial dimensions Slightly superior in the midline there is a density anterior to the aorta measuring 1.5 x 0.6 cm consistent with mesenteric lymph node. Medial to the LEFT renal hilum is a stable nodular density most likely a lymph node about 1.0-1.1 cm in diameter (8:51). Mesentery/Peritoneum: Stable 1.6 cm LEFT upper pelvic low-attenuation density (8:79). Retroperitoneum: No mass. 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 The SMA are patent with inferior atherosclerotic mural thrombus. The portal vein and branches, splenic vein, SMV, and hepatic veins are patent. Pelvis: No mass, ascites or fluid collection. Bones/Soft Tissues: Degenerative changes. IMPRESSION: Stable peritoneal retroperitoneal densities consistent with adenopathy. Stable low-attenuation nonspecific LEFT upper pelvic density possibly low-attenuation lymph node. No developing mass in the chest. No thoracic adenopathy. 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 [employer]ber [employer] Tender: PSCB Transcribe Date/Time: Nov 19 2018 2:04P Dictated by : ESTEVAN ROTHMAN MD This examination was interpreted and the report reviewed and electronically signed by: ESTEVAN ROTHMAN MD on Nov 19 2018 2:32PM EST [id number] progress on 2018-05-23 Protein mass HNO ID: [id number] Normal 05-23-2018 [facility] Author: Americo Mayer [place] ([id number]) Service: (none) Author Type: Physician Type: Progress Notes Filed: 05/23/2018 9:45 AM Note Text: Diagnosis: 1) Follicular lymphoma. HPI: The patient is a 63 year-old male who had a history of borderline hypertension. Over the year prior to initial presentation/evaluation for lymphoma, he noted he had been feeling more fatigued. 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 He noticed that he was having more trouble keeping his energy up to do his job. He also noticed more abdominal swelling. Several weeks prior to presentation, he noted right lower extremity edema and that prompted him to seek medical care. On exam he was found to have an abdominal mass prominent in the left upper quadrant. A CT scan was obtained. It showed massive retroperitoneal adenopathy. The patient was sent for a CT-guided biopsy. The tissue diagnosis rendered was that of a follicular lymphoma grade 1 or 2. He underwent ureteral stent placed 06/07/12. Received R-CHOP x6. Completed 10/17/12. Received maintenance rituximab. Presents for ongoing management. Interim history: Some diarrhea after oral contrast. No other GI symptoms. PMH, medications and allergies as below personally reviewed by me today. Any changes documented in appropriate section. ROS: Constitutional: Denies episodes of fever and night sweats. Normal appetite. Neuro: Denies SCHWAB, vertigo, dizziness and imbalance. HEENT: No recent change in voice, vision or hearing. Resp: Denies cough, wheeze and hemoptysis. Denies shortness of breath at rest. Denies PETERS. CVS: No chest pain/pressure. No PND or orthopnea. No LE swelling/edema. GI: See above. : Denies dysuria or gross hematuria. No symptoms of bladder outlet obstruction. Endo: Denies hot flashes. Denies polyuria and polydipsia. Denies heat and cold intolerance. Musculoskeletal: Denies bone, back, joint and muscular pain. Derm: Denies rash. Denies jaundice and diffuse pruritis. Heme: Denies unusual bleeding and unexplained bruising. Psych: Normal mood. PHYSICAL EXAM: Vitals: Blood pressure 121/65, pulse 76, temperature 37.2 ?C (99 ?F), temperature source Oral, weight 94.8 kg (209 lb). Well-appearing and in no acute distress. EYES: Sclerae are anicteric bilaterally. NECK: Supple. LYMPHATIC: There is no palpable cervical, supraclavicular or axillary adenopathy. RESPIRATORY: Inspiratory breath sounds are of normal intensity in all reynolds. CARDIOVASCULAR: Rhythm is regular. Normal intensity S1/S2. There is no gallop or murmur. ABDOMEN: The abdomen is nondistended. There is no organomegaly. Non tender. No mass. Extremities: Trace edema b/l--stable. SKIN: No jaundice or rash. No petechiae. NEUROLOGIC: site safety coordinator II-XII are grossly intact. No focal motor weakness. ASSESSMENT/PLAN: 1) Follicular lymphoma. Pathology at [facility] consistent with dx grade 1-2 disease, but presented as aggressive disease. Tolerated chemotherapy very well. Tolerated rituximab well without noticeable side effect. -I personally reviewed CT images and again with patient and independently verified and agreed with the radiologist's findings. SD. Compared 05/2012 CT with current to help him understand the response. He really appreciated this. -We again discussed that the disease is noncurable and currently he had a near-complete response and maintaining it. We discussed a strategy of starting treatment again now if he feels uncomfortable with a watch and wait approach. In that situation I told him I would recommend bendamustine/rituximab. Discussed the regimen with him including the schedule of administration. He again acknowledges that he is familiar with the symptoms he had originally and if they start to occur he will contact me but for now he is decided not to pursue therapy and to continue surveillance scans with the institution of therapy if/when has progressive disease. Plan: -Plan CT in 6 months. -All above reviewed again today. Americo Mayer, DO cnovsp on 2018-05-23 CNOVSP Visit (SP[facility] Normal 05-23-2018 [place] [facility] SIRISHA DE LEON ([id number]) 1955 M [place] Date Time Provider Department ([id number]) 05/23/18 9:10 AM AMERICO MAYER During your visit today, we recorded the following information about you: Temperature Pulse Blood pressure Weight 99 degrees 76/minute 121/65 94.8 kg Americo Mayer DO 05/23/2018 9:45 AM Signed Diagnosis: 1) Follicular lymphoma. HPI: The patient is a 63 year-old male who had a history of borderline hypertension. Over the year prior to initial presentation/evaluation for lymphoma, he noted he had been feeling more fatigued. 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 He noticed that he was having more trouble keeping his energy up to do his job. He also noticed more abdominal swelling. Several weeks prior to presentation, he noted right lower extremity edema and that prompted him to seek medical care. On exam he was found to have an abdominal mass prominent in the left upper quadrant. A CT scan was obtained. It showed massive retroperitoneal adenopathy. The patient was sent for a CT-guided biopsy. The tissue diagnosis rendered was that of a follicular lymphoma grade 1 or 2. He underwent ureteral stent placed 06/07/12. Received R-CHOP x6. Completed 10/17/12. Received maintenance rituximab. Presents for ongoing management. Interim history: Some diarrhea after oral contrast. No other GI symptoms. PMH, medications and allergies as below personally reviewed by me today. Any changes documented in appropriate section. ROS: Constitutional: Denies episodes of fever and night sweats. Normal appetite. Neuro: Denies SCHWAB, vertigo, dizziness and imbalance. HEENT: No recent change in voice, vision or hearing. Resp: Denies cough, wheeze and hemoptysis. Denies shortness of breath at rest. Denies PETERS. CVS: No chest pain/pressure. No PND or orthopnea. No LE swelling/edema. GI: See above. : Denies dysuria or gross hematuria. No symptoms of bladder outlet obstruction. Endo: Denies hot flashes. Denies polyuria and polydipsia. Denies heat and cold intolerance. Musculoskeletal: Denies bone, back, joint and muscular pain. Derm: Denies rash. Denies jaundice and diffuse pruritis. Heme: Denies unusual bleeding and unexplained bruising. Psych: Normal mood. PHYSICAL EXAM: Vitals: Blood pressure 121/65, pulse 76, temperature 37.2 ?C (99 ?F), temperature source Oral, weight 94.8 kg (209 lb). Well-appearing and in no acute distress. EYES: Sclerae are anicteric bilaterally. NECK: Supple. LYMPHATIC: There is no palpable cervical, supraclavicular or axillary adenopathy. RESPIRATORY: Inspiratory breath sounds are of normal intensity in all reynolds. CARDIOVASCULAR: Rhythm is regular. Normal intensity S1/S2. There is no gallop or murmur. ABDOMEN: The abdomen is nondistended. There is no organomegaly. Non tender. No mass. Extremities: Trace edema b/l--stable. SKIN: No jaundice or rash. No petechiae. NEUROLOGIC: site safety coordinator II-XII are grossly intact. No focal motor weakness. ASSESSMENT/PLAN: 1) Follicular lymphoma. Pathology at [facility] consistent with dx grade 1-2 disease, but presented as aggressive disease. Tolerated chemotherapy very well. Tolerated rituximab well without noticeable side effect. -I personally reviewed CT images and again with patient and independently verified and agreed with the radiologist's findings. SD. Compared 05/2012 CT with current to help him understand the response. He really appreciated this. -We again discussed that the disease is noncurable and currently he had a near-complete response and maintaining it. We discussed a strategy of starting treatment again now if he feels uncomfortable with a watch and wait approach. In that situation I told him I would recommend bendamustine/rituximab. Discussed the regimen with him including the schedule of administration. He again acknowledges that he is familiar with the symptoms he had originally and if they start to occur he will contact me but for now he is decided not to pursue therapy and to continue surveillance scans with the institution of therapy if/when has progressive disease. Plan: -Plan CT in 6 months. -All above reviewed again today. Americo Mayer DO Referring Provider: AMERICO MAYER [[id number]] Allergies As of Date: 05/23/2018 Noted Allergy Reaction SEASONAL ALLERGIES 09/04/2012 14 - Other: See Comments Comments: runny nose and watery eyes Date Reviewed: 05/23/2018 Reviewed by: Americo Mayer - Fully Assessed Reason for Visit: Established Patient [175] Visit Diagnosis:Follicular lymphoma of intra-abdominal lymph nodes, unspecified follicular lymphoma type (HCC) [C82.93] Order(s):CT ABD/PEL W IVCON [[id number]] Order #: [id number] FUTURE CT CHEST W IVCON [[id number]] Order #: [id number] FUTURE iv contrast (will be provided with radiology test)CT Chest ABD/PEL-Inject, intravenously, once for 1 dose.No IV access, insert saline lock prior to the beginning of sedation, infusion, injection of imaging exam. Discontinue saline lock post exam. If Pt. has a central line or IVAD, may access for administration according to line specific nursing protocol. Once exam is complete flush line and de-access according to line specific nursing protocol in the CT contrast administration guidelines link.Disp: 1 EachRfl: 0 enteric contrast (will be provided with radiology test)For CT CHESTABD/PEL W IVCON Routine order Administer, As Directed One Time Only, via Oral, Rectal, both Oral and Rectal, Enteric Tube, Stoma or Indwelling Catheter, Enteric Contrast as designated per enteric contrast guidelinesDisp: 1 EachRfl: 0 Follow-up and Disposition History Recorded Prescriptions as of 05/23/2018 Sig: AMLODIPINE 10 MG TABLET Take 10 mg by mouth once ashley* LISINOPRIL 20 MG TABLET Take 20 mg by mouth once ashley* LORAZEPAM 0.5 MG TABLET Take 0.5 mg by mouth twice da* POTASSIUM CHLORIDE ER 20 MEQ * Take 1 tablet by mouth once d* RIVAROXABAN 20 MG TABLET Take 20 mg by mouth daily wit* FEXOFENADINE-PSEUDOEPHEDRINE * Take 1 tablet by mouth once d* IBUPROFEN 100 MG TABLET Take 100 mg by mouth every 6 * * ACETAMINOPHEN 500 MG TABLET Take 500 mg by mouth every 8 * * METOPROLOL SUCCINATE ER 50 MG* Take 50 mg by mouth once ashley* * BEE POLLEN ORAL Take 1 tablet by mouth as nee* IV CONTRAST (RADIOLOGY PROCED* CT Chest ABD/PEL-Inject, intr* ENTERIC CONTRAST (RADIOLOGY P* For CT CHESTABD/PEL W IVCON R* Problem List As Of Date 05/23/2018 Noted Resolved Nodular lymphoma of lymph nodes of multiple sit*INVALID FOR* Drug induced neutropenia(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.03) (HCC) [D70.2] INVALID FOR*03/04/2014 Anxiety [F41.9] INVALID FOR* Hypokalemia [E87.6] INVALID FOR* Encounter Status:Closed by AMERICO MAYER DO on 05/23/18 ld on 2018-05-21 LD 152 135-225 U/L Normal 05-21-2018 [facility] ([id number]) Comment: Performed By: #### LD6, HFP #### [facility] [id number] abd/pel w ivcon on 2018-05-21 CT ABD/PEL W * * *Final Report* * * Normal 05-21-2018 [facility] IVCON DATE OF EXAM: May 21 2018 9:25AM [place] ([id number]) [facility] 0530 - CT ABD/PEL W IVCON / PROCEDURE REASON: Other specified types of non-hodgkin lymphoma, lymph nodes of multiple sites * * * * Physician Interpretation * * * * EXAMINATION: CT ABDOMEN AND PELVIS WITH IV CONTRAST CLINICAL HISTORY: Non-Hodgkin's lymphoma TECHNIQUE: CT of the abdomen and pelvis was performed using standard technique, scanning from just above the dome of the diaphragm to the symphysis pubis. MQ: CTAP_3 Contrast: IV: 135 ml of Omnipaque 300 Oral: 50 ml of 50ML Omnipaque [address] Radiation dose: Integrated Dose-length product (DLP) for this visit = 604 mGy*cm. CT Dose Reduction Employed: Automated exposure control(AEC) and iterative recon COMPARISON: 11/05/2017 RESULT: Liver: No mass. Biliary: No bile duct dilation. Gallbladder is unremarkable. Spleen: No mass. No splenomegaly. Pancreas: No mass or duct dilation. Adrenals: No mass. Kidneys: No renal calculi or hydronephrosis. Left-sided parapelvic cysts. GI tract: No dilation or wall thickening. Lymph nodes: There are enlarged mesenteric and retroperitoneal lymph nodes, with overall appearance not significantly changed. For example: Preaortic lymph node (3:57) measures 1.7 x 0.9 cm. Preaortic lymph node (3:69) measures 2.2 x 1.3 cm. Left periaortic lymph node (3:70) measures 2.1 x 1.3 cm. Ill-defined retroperitoneal density posterior to the aorta/IVC just proximal to the aortic bifurcation (3:73) measures 4.5 x 1.7 cm. Left lower quadrant mesenteric node anterior to the psoas muscle (3:85) measures 1.6 x 1.5 cm. Lymph node adjacent to the right iliac bifurcation (3:90) measures 1.0 x 1.0 cm. No new or significantly enlarging lymph nodes identified. Mesentery/Peritoneum: No ascites. Vasculature: The celiac axis demonstrates stable severe narrowing at its origin. SMA is patent. The portal vein and branches, splenic vein, SMV, and hepatic veins are patent. No abdominal aortic or iliac artery aneurysm. Pelvis: No mass, ascites or fluid collection. Bones/Soft Tissues: No significant finding. Lower thorax: Stable small left lower lobe nodule (3:15). IMPRESSION: Stable mesenteric and retroperitoneal lymphadenopathy. Left-sided parapelvic renal cysts. 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 Stable small left lower lobe pulmonary nodule. Rubber Mill Tender: PSCB Transcribe Date/Time: May 23 2018 8:00A Dictated by : RICO TATUM MD This examination was interpreted and the report reviewed and electronically signed by: RICO TATUM MD on May 23 2018 8:11AM EST [id number] Vital Signs Vital Sign Description Value / Unit Date Location The following section is limited to 5 entries per type and includes entries from the following time range: 20160801 - 20170501. BMI (Body Mass Index) 31.64 kg/m2 05-01-2017 - 05-01-2017 [facility] ([id number]) BMI (Body Mass Index) 30.83 kg/m2 01-26-2017 - 01-26-2017 [facility] ([id number]) BMI (Body Mass Index) 31.41 kg/m2 08-01-2016 - 08-01-2016 [facility] ([id number]) BSA (Body Surface Area) 2.12 m2 08-01-2016 - 08-01-2016 [facility] ([id number]) Heart rate 76 /min 05-05-2016 - 05-05-2016 [facility] ([id number]) Height 175.26 cm 05-01-2017 - 05-01-2017 [facility] ([id number]) Height 175.26 cm 01-26-2017 - 01-26-2017 [facility] ([id number]) Height 175.26 cm 02-02-2016 - 02-02-2016 [facility] ([id number]) Pulse (Heart Rate) 84 /min 05-01-2017 - 05-01-2017 [facility] ([id number]) Pulse (Heart Rate) 88 /min 01-26-2017 - 01-26-2017 [facility] ([id number]) Pulse (Heart Rate) 80 /min 08-01-2016 - 08-01-2016 [facility] ([id number]) Respiratory Rate 20 /min 05-01-2017 - 05-01-2017 [facility] ([id number]) Respiratory Rate 18 /min 01-26-2017 - 01-26-2017 [facility] ([id number]) Respiratory Rate 20 /min 08-01-2016 - 08-01-2016 [facility] ([id number]) Weight 97.21 kg 05-01-2017 - 05-01-2017 [facility] ([id number]) Weight 94.71 kg 01-26-2017 - 01-26-2017 [facility] ([id number]) Weight 96.48 kg 08-01-2016 - 08-01-2016 [facility] ([id number]) Encounters Date Type Reason Provider Location 11-21-2018 - Patient encounter AMERICO Leon SRAVANTHI RL A [facility] 11-22-2018 procedure Counts include 234 beds at the [facility] ([id number]) 11-18-2018 - Patient encounter AMERICO Leon [facility] 11-21-2018 procedure [place] ([id number]) 05-23-2018 - Patient encounter AMERICO Leon [facility] 05-24-2018 procedure Counts include 234 beds at the [facility] ([id number]) 05-21-2018 - Patient encounter AMERICO Leon [facility] 05-22-2018 procedure [place] ([id number]) Procedures Procedure Name Date Provider Location Follow Up Appt 6 months 05-01-2017 - Brody Bae MD [facility] 05-01-2017 ([id number]) [facility] 05-01-2017 - Brody Bae MD [facility] 05-01-2017 ([id number]) Follow Up Appt 6 months 05-01-2017 - Brody Bae MD [facility] 05-01-2017 ([id number]) [facility] 05-01-2017 - Brody Bae MD [facility] 05-01-2017 ([id number]) Dietary management education, 01-26-2017 - [facility] guidance, and counseling 01-26-2017 ([id number]) [facility] 01-26-2017 - Unique Ronel [facility] 01-26-2017 ESTELLE Fong ([id number]) Follow Up Appt 3 months 01-26-2017 - Unique Ronel [facility] 01-26-2017 ESTELLE Fong ([id number]) [facility] 01-26-2017 - Unique Ronel [facility] 01-26-2017 ESTEL[facility] Fong ([id number]) Follow Up Appt 3 months 01-26-2017 - Unique Ronel [facility] 01-26-2017 [facility]ong ([id number]) Follow Up Appt 6 months 08-01-2016 - Brody Bae MD [facility] 08-01-2016 ([id number]) [facility] 08-01-2016 - Brody Bae MD [facility] 08-01-2016 ([id number]) Follow Up Appt 6 months 08-01-2016 - Brody Bae MD [facility] 08-01-2016 ([id number]) [facility] 08-01-2016 - Bordy Bae MD [facility] 08-01-2016 ([id number]) Follow Up BP Check 06-07-2016 - Unique Rodney [facility] 06-07-2016 EST[facility]ong ([id number]) Follow Up BP Check 06-07-2016 - Unique Ronel [facility] 06-07-2016 EST[facility]ogn ([id number]) Chest x-ray 05-12-2016 - Brody Bae MD [facility] 05-13-2016 ([id number]) Chest x-ray 05-12-2016 - Brody Bae MD [facility] 05-13-2016 ([id number]) Ecg routine ecg w/least 12 05-05-2016 - Brody Bae MD [facility] lds w/i&r 05-05-2016 ([id number]) Electrocardiogram, complete 05-05-2016 - Brody Bae MD [facility] 05-05-2016 ([id number]) *BMP 05-03-2016 - Unique Rodney [facility] 05-03-2016 ESTELLE Fong ([id number]) Cardioversion 05-03-2016 - Unique Rodney [facility] 05-16-2016 ESTEL[facility] Fong ([id number]) FENCE SUPERVISOR 05-03-2016 - Unique Rodney [facility] 05-03-2016 ESTEL[facility] Fong ([id number]) Follow Up Appt 3 months 05-03-2016 - Unique Rodney [facility] 05-03-2016 ESTELLE Fong ([id number]) Follow Up Appt Other 05-03-2016 - Unique Rodney [facility] 05-03-2016 ESTELLE Fong ([id number]) Follow Up BP Check 05-03-2016 - Unique Rodney [facility] 05-03-2016 ESTELLE Fong ([id number]) *BMP 05-03-2016 - Unique Rodney [facility] 05-03-2016 ESTELLE Fong ([id number]) Cardioversion 05-03-2016 - Unique Rodney [facility] 05-16-2016 ESTELLE Fong ([id number]) FENCE SUPERVISOR 05-03-2016 - Unique Rodney [facility] 05-03-2016 ESTELLE Fong ([id number]) Follow Up Appt 3 months 05-03-2016 - Unique Rodney [facility] 05-03-2016 ESTELLE Fong ([id number]) Follow Up Appt Other 05-03-2016 - Unique Rodney [facility] 05-03-2016 ESTELLE Fong ([id number]) Follow Up BP Check 05-03-2016 - Unique Rodney [facility] 05-03-2016 ESTELLE Fong ([id number]) *BMP 02-02-2016 - [facility] 02-23-2016 ([id number]) Ecg routine ecg w/least 12 02-02-2016 - [facility] lds w/i&r 02-23-2016 ([id number]) Echocardiography 02-02-2016 - [facility] 02-23-2016 ([id number]) Follow Up Appt 3 months 02-02-2016 - [facility] 02-02-2016 ([id number]) MMM 02-02-2016 - [facility] 02-02-2016 ([id number]) Nuclear stress test -Lexiscan 02-02-2016 - [facility] 02-23-2016 ([id number]) *BMP 02-02-2016 - MD [facility] 02-23-2016 ([id number]) Echocardiography 02-02-2016 - [facility] 02-23-2016 ([id number]) Electrocardiogram, complete 02-02-2016 - [facility] 02-23-2016 ([id number]) Follow Up Appt 3 months 02-02-2016 - Brody Bae MD [facility] 02-02-2016 ([id number]) MM 02-02-2016 - [facility] 02-02-2016 ([id number]) Nuclear stress test -Lexiscan 02-02-2016 - Brody Bae MD [facility] 02-23-2016 ([id number]) Plan of Treatment Plan Description Date Location Appointment Appointment 11-02-2017 - [facility] 11-02-2017 ([id number]) Follow Up Appt 6 months Follow Up Appt 6 months 05-01-2017 - [facility] 05-01-2017 ([id number]) MMM MM 05-01-2017 - [facility] 05-01-2017 ([id number]) Appointment Appointment 05-01-2017 - [facility] 05-01-2017 ([id number]) Follow Up Appt 6 months Follow Up Appt 6 months 05-01-2017 - [facility] 05-01-2017 ([id number]) MMM MMM 05-01-2017 - [facility] 05-01-2017 ([id number]) Appointment Appointment 01-26-2017 - [facility] 01-26-2017 ([id number]) [facility] 01-26-2017 - [facility] 01-26-2017 ([id number]) Follow Up Appt 3 months Follow Up Appt 3 months 01-26-2017 - [facility] 01-26-2017 ([id number]) [facility] 01-26-2017 - [facility] 01-26-2017 ([id number]) Follow Up Appt 3 months Follow Up Appt 3 months 01-26-2017 - [facility] 01-26-2017 ([id number]) Follow Up Appt 6 months Follow Up Appt 6 months 08-01-2016 - [facility] 08-01-2016 ([id number]) MMM MMM 08-01-2016 - [facility] 08-01-2016 ([id number]) Follow Up Appt 6 months Follow Up Appt 6 months 08-01-2016 - [facility] 08-01-2016 ([id number]) MMM MMM 08-01-2016 - [facility] 08-01-2016 ([id number]) Follow Up BP Check Follow Up BP Check 06-07-2016 - [facility] 06-07-2016 ([id number]) Follow Up BP Check Follow Up BP Check 06-07-2016 - [facility] 06-07-2016 ([id number]) X-Ray, Chest, PA & Lateral X-Ray, Chest, PA & 05-12-2016 - [facility] Lateral 05-13-2016 ([id number]) X-Ray, Chest, PA & Lateral X-Ray, Chest, PA & 05-12-2016 - [facility] Lateral 05-13-2016 ([id number]) EKG (In office) EKG (In office) 05-05-2016 - [facility] 05-05-2016 ([id number]) EKG (In office) EKG (In office) 05-05-2016 - [facility] 05-05-2016 ([id number]) *BMP *BMP 05-03-2016 - [facility] 05-03-2016 ([id number]) Cardioversion Cardioversion 05-03-2016 - [facility] 05-03-2016 ([id number]) FENCE SUPERVISOR FENCE SUPERVISOR 05-03-2016 - [facility] 05-03-2016 ([id number]) Follow Up Appt 3 months Follow Up Appt 3 months 05-03-2016 - [facility] 05-03-2016 ([id number]) Follow Up Appt Other Follow Up Appt Other 05-03-2016 - [facility] 05-03-2016 ([id number]) Follow Up BP Check Follow Up BP Check 05-03-2016 - [facility] 05-03-2016 ([id number]) *BMP *BMP 05-03-2016 - [facility] 05-03-2016 ([id number]) Cardioversion Cardioversion 05-03-2016 - [facility] 05-03-2016 ([id number]) FENCE SUPERVISOR FENCE SUPERVISOR 05-03-2016 - [facility] 05-03-2016 ([id number]) Follow Up Appt 3 months Follow Up Appt 3 months 05-03-2016 - [facility] 05-03-2016 ([id number]) Follow Up Appt Other Follow Up Appt Other 05-03-2016 - [facility] 05-03-2016 ([id number]) Follow Up BP Check Follow Up BP Check 05-03-2016 - [facility] 05-03-2016 ([id number]) *BMP *BMP 02-02-2016 - [facility] 02-23-2016 ([id number]) EKG (In office) EKG (In office) 02-02-2016 - [facility] 02-23-2016 ([id number]) Echocardiogram (complete) Echocardiogram (complete) 02-02-2016 - [facility] 02-02-2016 ([id number]) Follow Up Appt 3 months Follow Up Appt 3 months 02-02-2016 - [facility] 02-02-2016 ([id number]) MMM MMM 02-02-2016 - [facility] 02-02-2016 ([id number]) Nuclear stress test Nuclear stress test 02-02-2016 - [facility] -Lexiscan -Lexiscan 02-02-2016 ([id number]) *BMP *BMP 02-02-2016 - [facility] 02-23-2016 ([id number]) Echocardiogram (complete) Echocardiogram (complete) 02-02-2016 - [facility] 02-02-2016 ([id number]) EKG (In office) EKG (In office) 02-02-2016 - [facility] 02-23-2016 ([id number]) Follow Up Appt 3 months Follow Up Appt 3 months 02-02-2016 - [facility] 02-02-2016 ([id number]) MMM MMM 02-02-2016 - [facility] 02-02-2016 ([id number]) Nuclear stress test Nuclear stress test 02-02-2016 - [facility] -Lexiscan -Lexiscan 02-02-2016 ([id number]) The following information is from the original human readable content Type Date Detail Appointment 10:00 AM Unique Fong PA-C, [address], [address], [place], [address], Pending order MMM Pending order Follow Up Appt 6 months Pending order FENCE SUPERVISOR Pending order Follow Up Appt 3 months Pending order MMM Pending order Follow Up Appt 6 months Pending order Follow Up BP Check Pending order X-Ray, Chest, PA & Lateral Pending order EKG (In office) Pending order Cardioversion Pending order *BMP Pending order FENCE SUPERVISOR Pending order Follow Up Appt 3 months Pending order Follow Up Appt Other Pending order Follow Up BP Check Pending order EKG (In office) Pending order *BMP Pending order Nuclear stress test -Lexiscan Pending order Echocardiogram (complete) Pending order MMM Pending order Follow Up Appt 3 months Type Date Detail Appointment 10:15 AM Brody Bae MD, [address], [place], [address], Pending order FENCE SUPERVISOR Pending order Follow Up Appt 3 months Pending order MMM Pending order Follow Up Appt 6 months Pending order Follow Up BP Check Pending order X-Ray, Chest, PA & Lateral Pending order EKG (In office) Pending order Cardioversion Pending order *BMP Pending order FENCE SUPERVISOR Pending order Follow Up Appt 3 months Pending order Follow Up Appt Other Pending order Follow Up BP Check Pending order EKG (In office) Pending order *BMP Pending order Nuclear stress test -Lexiscan Pending order Echocardiogram (complete) Pending order MMM Pending order Follow Up Appt 3 months Type Date Detail Appointment 03:00 PM Unique Fong PA-C, [address], [place], [address], Pending order MMM Pending order Follow Up Appt 6 months Pending order Follow Up BP Check Pending order X-Ray, Chest, PA & Lateral Pending order EKG (In office) Pending order Cardioversion Pending order *BMP Pending order FENCE SUPERVISOR Pending order Follow Up Appt 3 months Pending order Follow Up Appt Other Pending order Follow Up BP Check Pending order EKG (In office) Pending order *BMP Pending order Nuclear stress test -Lexiscan Pending order Echocardiogram (complete) Pending order MMM Pending order Follow Up Appt 3 months Summary Purpose DATE CREATED AUTHOR AUTHOR'S ORGANIZATION 11/24/2018 [facility] Family History No Family History Records Found Advance Directives No Advanced Directives Records Found Additional Source Comments FOR RECORDS PERTAINING TO PATIENTS WHO ARE OR HAVE BEEN ENROLLED IN A CHEMICAL DEPENDENCY/SUBSTANCE ABUSE PROGRAM, SOME INFORMATION MAY BE OMITTED. This clinical summary was aggregated from multiple sources. Caution should be exercised in using it in the provision of clinical care. This summary normalizes information from multiple sources, and as a consequence, information in this document may materially changethe coding, format and clinical context of patient data. In addition, data may be omittedin some cases. CLINICAL DECISIONS SHOULD BE BASED ON THE PRIMARY CLINICAL RECORDS. [facility] provides no warranty or guarantee of the accuracy or completeness of information in this document. UNRECOGNIZED CONTENT PROVIDED BELOW FOR UNRECOGNIZED SECTION No Status Records Found UNRECOGNIZED CONTENT PROVIDED BELOW FOR UNRECOGNIZED SECTION INFORMATION SOURCE DATE CREATED AUTHOR AUTHOR'S ORGANIZATION 11/24/2018 [facility]
== END ==
PROVIDERS: Family Provider Family Medicine; PCP Family Medicine; Visit Provider Family Medicine
DX: I10 Essential (primary) hypertension (principal)
CPT/HCPCS: 36415; 80048

== ENCOUNTER → 2018-12-19 15:53 | Outpatient (CLI) | payer BC, SELFPAY ==
[2018-12-19 18:26] LABS: Anion Gap 7 (5-15); BUN 19 mg/dL (7-18); BUN/Creat Ratio 14.7 RATIO (10-20); Calcium,Total 9.2 mg/dL (8.5-10.1); Chloride 105 mmol/L (98-107); Cholesterol 184 mg/dL (200); Creatinine, Serum 1.29 mg/dL (0.70-1.30); EST Glomerular Filtration Rate 60 mL/min (>60); Est Glom Filt Rate - Afr Amer 72 mL/min (>60); Glucose 89 mg/dL (74-106); High Density Lipoprotein 51 mg/dL; Potassium 3.6 mmol/L (3.5-5.1); Sodium Level 142 mmol/L (136-145); Triglycerides 83 mg/dL; Very Low Density Lipoprotein 17 mg/dL (5-40)
== END ==
PROVIDERS: Family Provider Family Medicine; PCP Family Medicine; Referring Provider Family Medicine; Visit Provider Family Medicine
DX: I10 Essential (primary) hypertension (principal)
CPT/HCPCS: 36415; 80048; 80061

== ENCOUNTER → 2019-07-07 10:13 | Outpatient (CLI) | payer BC, SELFPAY ==
[2018-06-04 09:09] VITALS: BMI 31.0
[2019-07-07 13:11] LABS: ALB/GLOB Ratio 1.4 RATIO (0.9-2.4); AST(SGOT) 22 U/L (15-37); Alanine Aminotransfer ALT/SGPT 24 U/L (16-61); Albumin, Serum 4.2 g/dL (3.2-5.0); Alkaline Phosphatase 101 U/L (45-117); Anion Gap 6 (5-15); BUN 18 mg/dL (7-18); BUN/Creat Ratio 13.5 RATIO (10-20); Calcium,Total 9.1 mg/dL (8.5-10.1); Chloride 106 mmol/L (98-107); Cholesterol 181 mg/dL (200); Creatinine, Serum 1.33 mg/dL (0.70-1.30); EST Glomerular Filtration Rate 57 mL/min (>60); Est Glom Filt Rate - Afr Amer 69 mL/min (>60); Globulin 3.1 g/dL (2.2-4.2); Glucose 79 mg/dL (74-106); High Density Lipoprotein 43 mg/dL; Potassium 3.3 mmol/L (3.5-5.1); Protein, Total 7.3 g/dL (6.4-8.2); Sodium Level 142 mmol/L (136-145); Triglycerides 121 mg/dL; Very Low Density Lipoprotein 24 mg/dL (5-40)
== END ==
PROVIDERS: Family Provider Family Medicine; PCP Family Medicine; Visit Provider Family Medicine
DX: I10 Essential (primary) hypertension (principal)
CPT/HCPCS: 36415; 80053; 80061

== ENCOUNTER 2019-08-12 09:33 | Outpatient (RCR) | payer BC, SELFPAY ==
[2019-07-25 09:10] VITALS: BMI 31.1
[2019-08-01 10:19] LABS: International Normalized Ratio 1.8; Prothrombin Time (Protime)PT. 20.4 SECONDS (11.7-14.9)
[2019-08-08 10:09] LABS: Prothrombin Time (Protime)PT. 22.7 SECONDS (11.7-14.9)
[2019-08-12 12:19] LABS: International Normalized Ratio 1.9; Prothrombin Time (Protime)PT. 21.3 SECONDS (11.7-14.9)
== END 2019-08-12 18:00 | disposition home or self-care (01) ==
LOC: MTLAB 09:33
PROVIDERS: Family Provider Family Medicine; PCP Family Medicine; Referring Provider Internal Medicine Cardiovascular Disease; Visit Provider Internal Medicine Cardiovascular Disease
DX: I48.19 Other persistent atrial fibrillation (principal)
CPT/HCPCS: 36415; 85610

== ENCOUNTER 2019-09-10 14:05 | Outpatient (RCR) | payer BC, SELFPAY ==
[2019-07-25 09:10] VITALS: BMI 31.1
[2019-08-26 10:21] LABS: International Normalized Ratio 1.9; Prothrombin Time (Protime)PT. 21.6 SECONDS (11.7-14.9)
[2019-09-10 15:48] LABS: International Normalized Ratio 2.5
== END 2019-09-10 18:00 | disposition home or self-care (01) ==
LOC: MTLAB 14:05
PROVIDERS: Family Provider Family Medicine; PCP Family Medicine; Referring Provider Internal Medicine Cardiovascular Disease; Visit Provider Internal Medicine Cardiovascular Disease
DX: I48.19 Other persistent atrial fibrillation (principal); I10 Essential (primary) hypertension; Z79.01 Long term (current) use of anticoagulants
CPT/HCPCS: 36415; 85610

== ENCOUNTER 2019-10-13 15:03 | Outpatient (RCR) | payer MEDICARE, SELFPAY ==
[2019-07-25 09:10] VITALS: BMI 31.1
[2019-10-01 16:34] LABS: Prothrombin Time (Protime)PT. 55.7 SECONDS (11.7-14.9)
[2019-10-01 16:41] LABS: International Normalized Ratio 6.2
[2019-10-03 12:49] LABS: Prothrombin Time (Protime)PT. 47.5 SECONDS (11.7-14.9)
[2019-10-03 13:10] LABS: International Normalized Ratio 5.1
[2019-10-06 12:35] LABS: International Normalized Ratio 2.3; Prothrombin Time (Protime)PT. 24.9 SECONDS (11.7-14.9)
[2019-10-13 17:33] LABS: International Normalized Ratio 2.6; Prothrombin Time (Protime)PT. 28.1 SECONDS (11.7-14.9)
== END 2019-10-13 18:00 | disposition home or self-care (01) ==
LOC: MTLAB 15:03
PROVIDERS: Family Provider Family Medicine; PCP Family Medicine; Referring Provider Internal Medicine Cardiovascular Disease; Visit Provider Internal Medicine Cardiovascular Disease
DX: I48.19 Other persistent atrial fibrillation (principal); I10 Essential (primary) hypertension; Z79.01 Long term (current) use of anticoagulants
CPT/HCPCS: 36415; 85610

== ENCOUNTER 2019-11-10 10:41 | Outpatient (RCR) | payer MEDICARE, OTHER, SELFPAY ==
[2019-07-25 09:10] VITALS: BMI 31.1
[2019-10-27 16:08] LABS: Prothrombin Time (Protime)PT. 38.3 SECONDS (11.7-14.9)
[2019-10-27 16:13] LABS: International Normalized Ratio 3.9
[2019-11-03 12:53] LABS: International Normalized Ratio 3.2
[2019-11-10 13:01] LABS: Prothrombin Time (Protime)PT. 35.1 SECONDS (11.7-14.9)
[2019-11-10 13:04] LABS: International Normalized Ratio 3.5
== END 2019-11-10 18:00 | disposition home or self-care (01) ==
LOC: MTLAB 10:41
PROVIDERS: Family Provider Family Medicine; PCP Family Medicine; Referring Provider Internal Medicine Cardiovascular Disease; Visit Provider Internal Medicine Cardiovascular Disease
DX: I48.19 Other persistent atrial fibrillation (principal); I10 Essential (primary) hypertension; Z79.01 Long term (current) use of anticoagulants
CPT/HCPCS: 36415; 85610

== ENCOUNTER 2019-12-05 12:40 | Outpatient (RCR) | payer MEDICARE, OTHER, SELFPAY ==
[2019-07-25 09:10] VITALS: BMI 31.1
[2019-11-24 15:04] LABS: Prothrombin Time (Protime)PT. 34.9 SECONDS (11.7-14.9)
[2019-11-24 15:24] LABS: International Normalized Ratio 3.5
[2019-12-05 15:23] LABS: International Normalized Ratio 2.8; Prothrombin Time (Protime)PT. 28.7 SECONDS (11.7-14.9)
== END 2019-12-18 18:00 | disposition home or self-care (01) ==
LOC: MTLAB 12:40
PROVIDERS: Family Provider Family Medicine; PCP Family Medicine; Referring Provider Internal Medicine Cardiovascular Disease; Visit Provider Internal Medicine Cardiovascular Disease
DX: I48.19 Other persistent atrial fibrillation (principal); I10 Essential (primary) hypertension; Z79.01 Long term (current) use of anticoagulants
CPT/HCPCS: 36415; 85610

== ENCOUNTER → 2019-12-22 08:44 | Outpatient (CLI) | payer MEDICARE, OTHER, SELFPAY ==
[2019-07-25 09:10] VITALS: BMI 31.1
[2019-12-22 10:31] LABS: Anion Gap 6 (5-15); BUN 20 mg/dL (7-18); BUN/Creat Ratio 14.1 RATIO (10-20); Calcium,Total 9.1 mg/dL (8.5-10.1); Chloride 108 mmol/L (98-107); Cholesterol 214 mg/dL (200); Creatinine, Serum 1.42 mg/dL (0.70-1.30); EST Glomerular Filtration Rate 53 mL/min (>60); Est Glom Filt Rate - Afr Amer 64 mL/min (>60); Glucose 103 mg/dL (74-106); High Density Lipoprotein 33 mg/dL; Potassium 3.8 mmol/L (3.5-5.1); Sodium Level 143 mmol/L (136-145); Triglycerides 213 mg/dL; Very Low Density Lipoprotein 43 mg/dL (5-40)
== END ==
PROVIDERS: PCP Family Medicine; Visit Provider Family Medicine
DX: I10 Essential (primary) hypertension (principal)
CPT/HCPCS: 36415; 80048; 80061

== ENCOUNTER 2019-12-31 11:01 | Outpatient (RCR) | payer MEDICARE, OTHER, SELFPAY ==
[2019-07-25 09:10] VITALS: BMI 31.1
[2019-12-31 11:16] LABS: Prothrombin Time Fingerstick 29.5 SEC (11.9-14.4)
== END 2019-12-31 18:00 | disposition home or self-care (01) ==
LOC: MTLAB 11:01
PROVIDERS: Family Provider Family Medicine; PCP Family Medicine; Referring Provider Internal Medicine Cardiovascular Disease; Visit Provider Internal Medicine Cardiovascular Disease
DX: I48.19 Other persistent atrial fibrillation (principal); I10 Essential (primary) hypertension; Z79.01 Long term (current) use of anticoagulants
CPT/HCPCS: 36416; 85610

== ENCOUNTER 2020-02-09 11:02 | Outpatient (RCR) | payer MEDICARE, SELFPAY ==
[2019-07-25 09:10] VITALS: BMI 31.1
[2020-01-19 11:20] LABS: Prothrombin Time Fingerstick 28.4 SEC (11.9-14.4)
[2020-02-09 11:20] LABS: Prothrombin Time Fingerstick 23.1 SEC (11.9-14.4)
== END 2020-02-09 18:00 | disposition home or self-care (01) ==
LOC: MTLAB 11:02
PROVIDERS: Family Provider Family Medicine; PCP Family Medicine; Referring Provider Internal Medicine Cardiovascular Disease; Visit Provider Internal Medicine Cardiovascular Disease
DX: I48.19 Other persistent atrial fibrillation (principal); I10 Essential (primary) hypertension; Z79.01 Long term (current) use of anticoagulants
CPT/HCPCS: 36416; 85610

== ENCOUNTER 2020-03-17 10:18 | Outpatient (RCR) | payer MEDICARE, OTHER, SELFPAY ==
[2020-02-10 10:13] VITALS: BMI 33.7
[2020-02-25 10:11] LABS: Prothrombin Time Fingerstick 20.3 SEC (11.9-14.4)
[2020-03-03 13:31] LABS: Prothrombin Time Fingerstick 27.3 SEC (11.9-14.4)
[2020-03-24 16:36] LABS: Prothrombin Time Fingerstick 26.3 SEC (11.9-14.4)
== END 2020-03-17 18:00 | disposition home or self-care (01) ==
LOC: MTLAB 10:18
PROVIDERS: Family Provider Family Medicine; PCP Family Medicine; Referring Provider Internal Medicine Cardiovascular Disease; Visit Provider Internal Medicine Cardiovascular Disease
DX: I48.19 Other persistent atrial fibrillation (principal); I10 Essential (primary) hypertension; Z79.01 Long term (current) use of anticoagulants
CPT/HCPCS: 36416; 85610

== ENCOUNTER 2020-04-07 14:09 | Outpatient (RCR) | payer MEDICARE, OTHER, SELFPAY ==
[2020-02-10 10:13] VITALS: BMI 33.7
[2020-04-07 14:31] LABS: Prothrombin Time Fingerstick 21.5 SEC (11.9-14.4)
== END 2020-04-19 18:00 | disposition home or self-care (01) ==
LOC: MTLAB 14:09
PROVIDERS: Family Provider Family Medicine; PCP Family Medicine; Referring Provider Internal Medicine Cardiovascular Disease; Visit Provider Internal Medicine Cardiovascular Disease
DX: I48.19 Other persistent atrial fibrillation (principal); I10 Essential (primary) hypertension; Z79.01 Long term (current) use of anticoagulants
CPT/HCPCS: 36416; 85610

== ENCOUNTER 2020-05-12 12:02 | Outpatient (RCR) | payer MEDICARE, OTHER, SELFPAY ==
[2020-02-10 10:13] VITALS: BMI 33.7
[2020-04-21 14:41] LABS: Prothrombin Time Fingerstick 24.7 SEC (11.9-14.4)
== END 2020-05-12 18:00 | disposition home or self-care (01) ==
LOC: MTLAB 12:02
PROVIDERS: Family Provider Family Medicine; PCP Family Medicine; Referring Provider Internal Medicine Cardiovascular Disease; Visit Provider Internal Medicine Cardiovascular Disease
DX: I48.19 Other persistent atrial fibrillation (principal); I10 Essential (primary) hypertension; Z79.01 Long term (current) use of anticoagulants
CPT/HCPCS: 36416; 85610

== ENCOUNTER 2020-06-09 16:11 | Outpatient (RCR) | payer MEDICARE, OTHER, SELFPAY ==
[2020-02-10 10:13] VITALS: BMI 33.7
[2020-06-09 16:20] LABS: Prothrombin Time Fingerstick 28.5 SEC (11.9-14.4)
== END 2020-06-09 18:00 | disposition home or self-care (01) ==
LOC: MTLAB 16:11
PROVIDERS: Family Provider Family Medicine; PCP Family Medicine; Referring Provider Internal Medicine Cardiovascular Disease; Visit Provider Internal Medicine Cardiovascular Disease
DX: I48.19 Other persistent atrial fibrillation (principal); I10 Essential (primary) hypertension; Z79.01 Long term (current) use of anticoagulants
CPT/HCPCS: 36416; 85610

== ENCOUNTER → 2020-06-21 08:36 | Outpatient (CLI) | payer MEDICARE, OTHER, SELFPAY ==
[2020-02-10 10:13] VITALS: BMI 33.7
[2020-06-21 10:48] LABS: Anion Gap 8 (5-15); BUN 17 mg/dL (7-18); BUN/Creat Ratio 11.6 RATIO (10-20); Calcium,Total 9.2 mg/dL (8.5-10.1); Chloride 106 mmol/L (98-107); Cholesterol 204 mg/dL (200); Creatinine, Serum 1.46 mg/dL (0.70-1.30); EST Glomerular Filtration Rate 51 mL/min (>60); Est Glom Filt Rate - Afr Amer 62 mL/min (>60); Glucose 100 mg/dL (74-106); High Density Lipoprotein 40 mg/dL; Potassium 3.7 mmol/L (3.5-5.1); Sodium Level 142 mmol/L (136-145); Triglycerides 237 mg/dL; Very Low Density Lipoprotein 47 mg/dL (5-40)
== END ==
PROVIDERS: PCP Family Medicine; Visit Provider Family Medicine
DX: I10 Essential (primary) hypertension (principal)
CPT/HCPCS: 36415; 80048; 80061

== ENCOUNTER 2020-07-07 14:27 | Outpatient (RCR) | payer MEDICARE, OTHER, SELFPAY ==
[2020-02-10 10:13] VITALS: BMI 33.7
[2020-07-07 14:36] LABS: Prothrombin Time Fingerstick 34.5 SEC (11.9-14.4)
== END 2020-07-07 18:00 | disposition home or self-care (01) ==
LOC: MTLAB 14:27
PROVIDERS: Family Provider Family Medicine; PCP Family Medicine; Referring Provider Internal Medicine Cardiovascular Disease; Visit Provider Internal Medicine Cardiovascular Disease
DX: I48.19 Other persistent atrial fibrillation (principal); I10 Essential (primary) hypertension; Z79.01 Long term (current) use of anticoagulants
CPT/HCPCS: 36416; 85610

== ENCOUNTER 2020-08-11 11:10 | Outpatient (RCR) | payer MEDICARE, OTHER, SELFPAY ==
[2020-02-10 10:13] VITALS: BMI 33.7
[2020-07-21 13:06] LABS: Prothrombin Time Fingerstick 32.8 SEC (11.9-14.4)
[2020-08-12 13:10] LABS: Prothrombin Time Fingerstick 27.4 SEC (11.9-14.4)
== END 2020-08-11 18:00 | disposition home or self-care (01) ==
LOC: MTLAB 11:10
PROVIDERS: Family Provider Family Medicine; PCP Family Medicine; Referring Provider Internal Medicine Cardiovascular Disease; Visit Provider Internal Medicine Cardiovascular Disease
DX: I48.19 Other persistent atrial fibrillation (principal); I10 Essential (primary) hypertension; Z79.01 Long term (current) use of anticoagulants
CPT/HCPCS: 36416; 85610

== ENCOUNTER 2020-09-09 12:57 | Outpatient (RCR) | payer MEDICARE, OTHER, SELFPAY ==
[2020-02-10 10:13] VITALS: BMI 33.7
[2020-09-09 13:10] LABS: Prothrombin Time Fingerstick 24.8 SEC (11.9-14.4)
== END 2020-09-09 18:00 | disposition home or self-care (01) ==
LOC: MTLAB 12:57
PROVIDERS: Family Provider Family Medicine; PCP Family Medicine; Referring Provider Internal Medicine Cardiovascular Disease; Visit Provider Internal Medicine Cardiovascular Disease
DX: I48.19 Other persistent atrial fibrillation (principal)
CPT/HCPCS: 36416; 85610

== ENCOUNTER 2020-10-13 11:53 | Outpatient (RCR) | payer MEDICARE, OTHER, SELFPAY ==
[2020-02-10 10:13] VITALS: BMI 33.7
[2020-10-05 07:29] VITALS: BMI 36.5
[2020-10-13 12:21] LABS: Prothrombin Time Fingerstick 21.6 SEC (11.9-14.4)
== END 2020-10-13 18:00 | disposition home or self-care (01) ==
LOC: MTLAB 11:53
PROVIDERS: Family Provider Family Medicine; PCP Family Medicine; Referring Provider Internal Medicine Cardiovascular Disease; Visit Provider Internal Medicine Cardiovascular Disease
DX: I48.19 Other persistent atrial fibrillation (principal)
CPT/HCPCS: 36416; 85610

== ENCOUNTER → 2020-10-18 12:52 | Outpatient (CLI) | payer MEDICARE, OTHER, SELFPAY ==
[2020-10-05 07:29] VITALS: BMI 36.5
--- NOTE | 2020-10-18 12:54 | ECHOD_ITS ---
Reason For Study: AFIB Procedure This was a 2D Doppler, Color Flow transthoracic echocardiogram. Unable to perform accurate strain due to variation in heart rate. Exam performed in department. Left Ventricle Normal LV size. Left ventricular systolic function is normal. The estimated ejection fraction is 65 %. No regional wall motion abnormalities noted. Right Ventricle Normal RV size. Normal systolic function. Atria The left atrium is mildly enlarged. Normal right atrium. Mitral Valve Normal mitral valve. Mild (1+) mitral valve insufficiency. Tricuspid Valve Normal tricuspid valve. Mild tricuspid valve insufficiency. Pulmonary artery systolic pressure is 34 mmHg. Aortic Valve Normal aortic valve. Pulmonic Valve Normal pulmonic valve. Great Vessels Normal aortic root. The pulmonary artery is normal size. Normal inferior vena cava. Pericardium/Pleural No pericardial effusion. MMode/2D Measurements & Calculations LVIDd: 4.7 cm IVSd: 0.85 cm Ao root diam: 3.7 cm LVIDs: 3.3 cm LVPWd: 0.86 cm RVDd: 3.6 cm FS: 30.7 % LAV(MOD-bp): 77.5 ml LA A4 area: 26.4 cm2 LA dimension(2D): 4.4 cm LAV(MOD-bp) Indexed: 35.1 ml/m2 LAV(MOD-sp2): 65.1 ml LAV(MOD-sp4): 80.6 ml RA A4 area: 20.5 cm2 Time Measurements MV dec time: 0.22 sec Doppler Measurements & Calculations MV E max gavin: 148.9 cm/sec Lat Peak E' Gavin: 11.8 cm/sec Med Peak E' Gavin: 12.5 cm/sec MV A max gavin: 36.2 cm/sec E/E' lat: 12.6 E/E' med: 11.9 MV E/A: 4.1 Ao V2 max: 141.8 cm/sec LV V1 max: 112.8 cm/sec PA V2 max: 124.5 cm/sec Ao max P.1 mmHg LV V1 max P.1 mmHg TR max gavin: 275.0 cm/sec TR max P.2 mmHg Interpretation Summary Normal LV size. Left ventricular systolic function is normal. The estimated ejection fraction is 65 %. The left atrium is mildly enlarged. Structurally normal valves. Ordering Physician: Brody Bae Referring Physician: EB LEE Performed By: Reyna Olmstead, DAVID, RVT
== END ==
PROVIDERS: PCP Family Medicine; Referring Provider Internal Medicine Cardiovascular Disease; Visit Provider Internal Medicine Cardiovascular Disease
DX: I48.11 Longstanding persistent atrial fibrillation (principal); I48.92 Unspecified atrial flutter
CPT/HCPCS: 93306

== ENCOUNTER 2020-10-28 15:05 | Outpatient (RCR) | payer MEDICARE, OTHER, SELFPAY ==
[2020-10-05 07:29] VITALS: BMI 36.5
[2020-10-28 15:15] LABS: Prothrombin Time Fingerstick 24.6 SEC (11.9-14.4)
== END 2020-10-28 18:00 | disposition home or self-care (01) ==
LOC: MTLAB 15:05
PROVIDERS: Family Provider Family Medicine; PCP Family Medicine; Referring Provider Internal Medicine Cardiovascular Disease; Visit Provider Internal Medicine Cardiovascular Disease
DX: I48.19 Other persistent atrial fibrillation (principal)
CPT/HCPCS: 36416; 85610

== ENCOUNTER 2020-11-24 11:15 | Outpatient (RCR) | payer MEDICARE, OTHER, SELFPAY ==
[2020-10-05 07:29] VITALS: BMI 36.5
[2020-11-24 11:31] LABS: INR Fingerstick 2.5; Prothrombin Time Fingerstick 27.9 SEC (11.9-14.4)
== END 2020-11-24 18:00 | disposition home or self-care (01) ==
LOC: MTLAB 11:15
PROVIDERS: Family Provider Family Medicine; PCP Family Medicine; Referring Provider Internal Medicine Cardiovascular Disease; Visit Provider Internal Medicine Cardiovascular Disease
DX: I48.19 Other persistent atrial fibrillation (principal)
CPT/HCPCS: 36416; 85610

== ENCOUNTER 2020-12-22 15:07 | Outpatient (RCR) | payer MEDICARE, OTHER, SELFPAY ==
[2020-10-05 07:29] VITALS: BMI 36.5
[2020-12-22 15:30] LABS: INR Fingerstick 2.1; Prothrombin Time Fingerstick 23.8 SEC (11.9-14.4)
== END 2020-12-22 18:00 | disposition home or self-care (01) ==
LOC: MTLAB 15:07
PROVIDERS: Family Provider Family Medicine; PCP Family Medicine; Referring Provider Internal Medicine Cardiovascular Disease; Visit Provider Internal Medicine Cardiovascular Disease
DX: I48.19 Other persistent atrial fibrillation (principal)
CPT/HCPCS: 36416; 85610

== ENCOUNTER 2021-01-20 09:54 | Outpatient (RCR) | payer MEDICARE, OTHER, SELFPAY ==
[2020-10-05 07:29] VITALS: BMI 36.5
[2021-01-20 10:10] LABS: INR Fingerstick 2.2; Prothrombin Time Fingerstick 24.6 SEC (11.9-14.4)
== END 2021-01-20 18:00 | disposition home or self-care (01) ==
LOC: MTLAB 09:54
PROVIDERS: Family Provider Family Medicine; PCP Family Medicine; Referring Provider Internal Medicine Cardiovascular Disease; Visit Provider Internal Medicine Cardiovascular Disease
DX: I48.19 Other persistent atrial fibrillation (principal)
CPT/HCPCS: 36416; 85610

== ENCOUNTER 2021-03-11 11:30 | Outpatient (RCR) | payer MEDICARE, OTHER, SELFPAY ==
[2020-10-05 07:29] VITALS: BMI 36.5
[2021-02-18 11:40] LABS: INR Fingerstick 1.3; Prothrombin Time Fingerstick 15.8 SEC (11.9-14.4)
[2021-02-25 16:31] LABS: INR Fingerstick 1.6; Prothrombin Time Fingerstick 18.5 SEC (11.9-14.4)
[2021-03-11 11:35] LABS: INR Fingerstick 3.2; Prothrombin Time Fingerstick 35.3 SEC (11.9-14.4)
== END 2021-03-11 18:00 | disposition home or self-care (01) ==
LOC: MTLAB 11:30
PROVIDERS: Family Provider Family Medicine; PCP Family Medicine; Referring Provider Internal Medicine Cardiovascular Disease; Visit Provider Internal Medicine Cardiovascular Disease
DX: I48.19 Other persistent atrial fibrillation (principal)
CPT/HCPCS: 36416; 85610

== ENCOUNTER 2021-03-30 12:40 | Outpatient (RCR) | payer MEDICARE, OTHER, SELFPAY ==
[2020-10-05 07:29] VITALS: BMI 36.5
[2021-03-30 12:51] LABS: INR Fingerstick 2.5
== END 2021-03-30 18:00 | disposition home or self-care (01) ==
LOC: MTLAB 12:40
PROVIDERS: Family Provider Family Medicine; PCP Family Medicine; Referring Provider Internal Medicine Cardiovascular Disease; Visit Provider Internal Medicine Cardiovascular Disease
DX: I48.19 Other persistent atrial fibrillation (principal)
CPT/HCPCS: 36416; 85610

== ENCOUNTER 2021-05-18 15:14 | Outpatient (RCR) | payer MEDICARE, OTHER, SELFPAY ==
[2021-04-20 01:34] VITALS: BMI 36.5
[2021-04-21 12:56] LABS: INR Fingerstick 2.1; Prothrombin Time Fingerstick 24.1 SEC (11.9-14.4)
[2021-05-18 15:25] LABS: INR Fingerstick 2.6; Prothrombin Time Fingerstick 29.1 SEC (11.9-14.4)
== END 2021-05-18 18:00 | disposition home or self-care (01) ==
LOC: MTLAB 15:14
PROVIDERS: Family Provider Family Medicine; PCP Family Medicine; Referring Provider Internal Medicine Cardiovascular Disease; Visit Provider Internal Medicine Cardiovascular Disease
DX: I48.19 Other persistent atrial fibrillation (principal)
CPT/HCPCS: 36416; 85610

== ENCOUNTER 2021-06-15 16:21 | Outpatient (RCR) | payer MEDICARE, OTHER, SELFPAY ==
[2021-05-20 02:11] VITALS: BMI 36.5
[2021-06-15 16:35] LABS: INR Fingerstick 1.5; Prothrombin Time Fingerstick 17.8 SEC (11.9-14.4)
== END 2021-06-19 18:00 | disposition home or self-care (01) ==
LOC: MTLAB 16:21
PROVIDERS: Family Provider Family Medicine; PCP Family Medicine; Referring Provider Internal Medicine Cardiovascular Disease; Visit Provider Internal Medicine Cardiovascular Disease
DX: I48.19 Other persistent atrial fibrillation (principal)
CPT/HCPCS: 36416; 85610

== ENCOUNTER 2021-06-22 12:06 | Outpatient (RCR) | payer MEDICARE, OTHER, SELFPAY ==
[2021-06-19 20:47] VITALS: BMI 36.5
[2021-06-22 12:16] LABS: INR Fingerstick 2.5; Prothrombin Time Fingerstick 28.1 SEC (11.9-14.4)
== END 2021-07-19 18:00 | disposition home or self-care (01) ==
LOC: MTLAB 12:06
PROVIDERS: Family Provider Family Medicine; PCP Family Medicine; Referring Provider Internal Medicine Cardiovascular Disease; Visit Provider Internal Medicine Cardiovascular Disease
DX: I48.19 Other persistent atrial fibrillation (principal)
CPT/HCPCS: 36416; 85610

== ENCOUNTER 2021-08-18 15:45 | Outpatient (RCR) | payer MEDICARE, OTHER, SELFPAY ==
[2021-07-20 04:19] VITALS: BMI 36.5
[2021-07-20 13:06] LABS: INR Fingerstick 2.5; Prothrombin Time Fingerstick 27.8 SEC (11.9-14.4)
[2021-08-18 16:06] LABS: INR Fingerstick 2.4; Prothrombin Time Fingerstick 27.2 SEC (11.9-14.4)
== END 2021-08-20 18:00 | disposition home or self-care (01) ==
LOC: MTLAB 15:45
PROVIDERS: Family Provider Family Medicine; PCP Family Medicine; Referring Provider Internal Medicine Cardiovascular Disease; Visit Provider Internal Medicine Cardiovascular Disease
DX: I48.19 Other persistent atrial fibrillation (principal)
CPT/HCPCS: 36415; 36416; 85610

== ENCOUNTER 2021-09-14 12:18 | Outpatient (RCR) | payer MEDICARE, OTHER, SELFPAY ==
[2021-08-21 19:44] VITALS: BMI 36.5
[2021-09-14 12:35] LABS: INR Fingerstick 2.2
== END 2021-09-19 18:00 | disposition home or self-care (01) ==
LOC: MTLAB 12:18
PROVIDERS: Family Provider Family Medicine; PCP Family Medicine; Referring Provider Internal Medicine Cardiovascular Disease; Visit Provider Internal Medicine Cardiovascular Disease
DX: I48.19 Other persistent atrial fibrillation (principal)
CPT/HCPCS: 36416; 85610

== ENCOUNTER 2021-10-12 12:12 | Outpatient (RCR) | payer MEDICARE, OTHER, SELFPAY ==
[2021-09-20 02:34] VITALS: BMI 36.5
[2021-10-12 12:31] LABS: INR Fingerstick 2.1; Prothrombin Time Fingerstick 24.2 SEC (11.9-14.4)
== END 2021-10-12 18:00 | disposition home or self-care (01) ==
LOC: MTLAB 12:12
PROVIDERS: Family Provider Family Medicine; PCP Family Medicine; Referring Provider Internal Medicine Cardiovascular Disease; Visit Provider Internal Medicine Cardiovascular Disease
DX: I48.11 Longstanding persistent atrial fibrillation (principal); Z79.01 Long term (current) use of anticoagulants
CPT/HCPCS: 36416; 85610

== ENCOUNTER 2021-11-10 12:31 | Outpatient (RCR) | payer MEDICARE, OTHER, SELFPAY ==
[2021-10-18 10:40] VITALS: BMI 36.5
[2021-11-10 12:41] LABS: INR Fingerstick 1.9
== END 2021-11-17 18:00 | disposition home or self-care (01) ==
LOC: MTLAB 12:31
PROVIDERS: Family Provider Family Medicine; PCP Family Medicine; Referring Provider Internal Medicine Cardiovascular Disease; Visit Provider Internal Medicine Cardiovascular Disease
DX: I48.19 Other persistent atrial fibrillation (principal); Z79.01 Long term (current) use of anticoagulants
CPT/HCPCS: 36416; 85610

== ENCOUNTER 2021-12-13 09:56 | Outpatient (RCR) | payer MEDICARE, OTHER, SELFPAY ==
[2021-11-18 03:16] VITALS: BMI 36.5
[2021-11-23 11:36] LABS: INR Fingerstick 2.2; Prothrombin Time Fingerstick 26.3 SEC (11.7-14.9)
[2021-12-13 10:06] LABS: INR Fingerstick 3.4; Prothrombin Time Fingerstick 38.7 SEC (11.7-14.9)
== END 2021-12-13 18:00 | disposition home or self-care (01) ==
LOC: LAB 09:56
PROVIDERS: Family Provider Family Medicine; PCP Family Medicine; Referring Provider Internal Medicine Cardiovascular Disease; Visit Provider Internal Medicine Cardiovascular Disease
DX: I48.19 Other persistent atrial fibrillation (principal); Z79.01 Long term (current) use of anticoagulants
CPT/HCPCS: 36416; 85610

== ENCOUNTER 2022-01-04 13:01 | Outpatient (RCR) | payer MEDICARE, OTHER, SELFPAY ==
[2021-12-18 03:33] VITALS: BMI 36.5
[2022-01-04 13:11] LABS: INR Fingerstick 2.1; Prothrombin Time Fingerstick 24.5 SEC (11.7-14.9)
== END 2022-01-04 18:00 | disposition home or self-care (01) ==
LOC: LAB 13:01
PROVIDERS: Family Provider Family Medicine; PCP Family Medicine; Referring Provider Internal Medicine Cardiovascular Disease; Visit Provider Internal Medicine Cardiovascular Disease
DX: I48.19 Other persistent atrial fibrillation (principal); Z79.01 Long term (current) use of anticoagulants
CPT/HCPCS: 36416; 85610

== ENCOUNTER 2022-02-08 11:00 | Outpatient (RCR) | payer MEDICARE, OTHER, SELFPAY ==
[2022-01-17 20:53] VITALS: BMI 36.5
[2022-01-18 13:50] LABS: INR Fingerstick 1.6; Prothrombin Time Fingerstick 18.8 SEC (11.7-14.9)
[2022-02-08 11:11] LABS: INR Fingerstick 2.3; Prothrombin Time Fingerstick 26.4 SEC (11.7-14.9)
== END 2022-02-08 23:59 | disposition home or self-care (01) ==
LOC: LAB 11:00
PROVIDERS: Family Provider Family Medicine; PCP Family Medicine; Referring Provider Internal Medicine Cardiovascular Disease; Visit Provider Internal Medicine Cardiovascular Disease
DX: I48.19 Other persistent atrial fibrillation (principal); Z79.01 Long term (current) use of anticoagulants
CPT/HCPCS: 36416; 85610

== ENCOUNTER 2022-03-08 13:22 | Outpatient (RCR) | payer MEDICARE, OTHER, SELFPAY ==
[2022-02-17 07:20] VITALS: BMI 36.5
[2022-03-08 13:45] LABS: INR Fingerstick 2.5; Prothrombin Time Fingerstick 29.1 SEC (11.7-14.9)
== END 2022-03-19 02:47 | disposition home or self-care (01) ==
LOC: LAB 13:22
PROVIDERS: Family Provider Family Medicine; PCP Family Medicine; Referring Provider Internal Medicine Cardiovascular Disease; Visit Provider Internal Medicine Cardiovascular Disease
DX: I48.19 Other persistent atrial fibrillation (principal); Z79.01 Long term (current) use of anticoagulants
CPT/HCPCS: 36416; 85610

== ENCOUNTER 2022-04-04 14:09 | Outpatient (RCR) | payer MEDICARE, OTHER, SELFPAY ==
[2022-03-19 02:48] VITALS: BMI 36.5
[2022-04-04 14:15] LABS: INR Fingerstick 2.6; Prothrombin Time Fingerstick 29.9 SEC (11.7-14.9)
== END 2022-04-04 18:00 | disposition home or self-care (01) ==
LOC: LAB 14:09
PROVIDERS: Family Provider Family Medicine; PCP Family Medicine; Referring Provider Internal Medicine Cardiovascular Disease; Visit Provider Internal Medicine Cardiovascular Disease
DX: I48.19 Other persistent atrial fibrillation (principal); Z79.01 Long term (current) use of anticoagulants
CPT/HCPCS: 36416; 85610

== ENCOUNTER 2022-05-19 12:56 | Outpatient (RCR) | payer MEDICARE, OTHER, SELFPAY ==
[2022-04-19 23:15] VITALS: BMI 36.5
[2022-05-03 09:45] LABS: INR Fingerstick 3.4
== END 2022-05-19 18:00 | disposition home or self-care (01) ==
LOC: MTLAB 12:56
PROVIDERS: Family Provider Family Medicine; PCP Family Medicine; Referring Provider Internal Medicine Cardiovascular Disease; Visit Provider Internal Medicine Cardiovascular Disease
DX: I48.19 Other persistent atrial fibrillation (principal); Z79.01 Long term (current) use of anticoagulants
CPT/HCPCS: 36416; 85610

== ENCOUNTER 2022-06-12 16:01 | Outpatient (RCR) | payer MEDICARE, OTHER, SELFPAY ==
[2022-05-20 04:09] VITALS: BMI 36.5
[2022-05-29 12:17] LABS: International Normalized Ratio 3.2; Prothrombin Time (Protime)PT. 32.7 SECONDS (11.7-14.9)
[2022-05-29 12:31] LABS: AST(SGOT) 20 U/L (15-37); Alanine Aminotransfer ALT/SGPT 21 U/L (16-61); Albumin, Serum 3.7 g/dL (3.2-5.0); Alkaline Phosphatase 94 U/L (45-117); Bilirubin, Direct 0.11 mg/dL (0.00-0.30); Cholesterol 181 mg/dL (200); Globulin 3.3 g/dL (2.2-4.2); High Density Lipoprotein 35 mg/dL; Triglycerides 203 mg/dL; Very Low Density Lipoprotein 41 mg/dL (5-40)
[2022-06-12 16:16] LABS: INR Fingerstick 1.3; Prothrombin Time Fingerstick 16.3 SEC (11.7-14.9)
== END 2022-06-12 18:00 | disposition home or self-care (01) ==
LOC: MTLAB 16:01
PROVIDERS: Family Provider Family Medicine; PCP Family Medicine; Referring Provider Internal Medicine Cardiovascular Disease; Visit Provider Internal Medicine Cardiovascular Disease
DX: I48.19 Other persistent atrial fibrillation (principal); Z79.01 Long term (current) use of anticoagulants
CPT/HCPCS: 36415; 36416; 80061; 80076; 85610

== ENCOUNTER 2022-06-26 15:28 | Outpatient (RCR) | payer MEDICARE, OTHER, SELFPAY ==
[2022-06-20 10:39] VITALS: BMI 36.5
[2022-06-26 15:45] LABS: INR Fingerstick 2.6; Prothrombin Time Fingerstick 29.6 SEC (11.7-14.9)
== END 2022-07-19 18:00 | disposition home or self-care (01) ==
LOC: MTLAB 15:28
PROVIDERS: Family Provider Family Medicine; PCP Family Medicine; Referring Provider Internal Medicine Cardiovascular Disease; Visit Provider Internal Medicine Cardiovascular Disease
DX: I48.19 Other persistent atrial fibrillation (principal); Z79.01 Long term (current) use of anticoagulants
CPT/HCPCS: 36416; 85610

== ENCOUNTER 2022-07-24 11:25 | Outpatient (RCR) | payer MEDICARE, OTHER, SELFPAY ==
[2022-07-20 02:35] VITALS: BMI 36.5
[2022-07-24 11:35] LABS: INR Fingerstick 2.3; Prothrombin Time Fingerstick 27.2 SEC (11.7-14.9)
== END 2022-07-24 18:00 | disposition home or self-care (01) ==
LOC: MTLAB 11:25
PROVIDERS: Family Provider Family Medicine; PCP Family Medicine; Referring Provider Internal Medicine Cardiovascular Disease; Visit Provider Internal Medicine Cardiovascular Disease
DX: I48.19 Other persistent atrial fibrillation (principal); Z79.01 Long term (current) use of anticoagulants
CPT/HCPCS: 36416; 85610

== ENCOUNTER 2022-08-28 13:59 | Outpatient (RCR) | payer MEDICARE, OTHER, SELFPAY ==
[2022-08-20 06:39] VITALS: BMI 36.5
[2022-08-28 14:11] LABS: INR Fingerstick 2.1; Prothrombin Time Fingerstick 24.7 SEC (11.7-14.9)
== END 2022-08-28 15:59 | disposition home or self-care (01) ==
LOC: MTLAB 13:59
PROVIDERS: Family Provider Family Medicine; PCP Family Medicine; Referring Provider Internal Medicine Cardiovascular Disease; Visit Provider Internal Medicine Cardiovascular Disease
DX: I48.19 Other persistent atrial fibrillation (principal); Z79.01 Long term (current) use of anticoagulants
CPT/HCPCS: 36416; 85610

== ENCOUNTER → 2022-09-04 | Outpatient (CLI) | payer MEDICARE, OTHER, SELFPAY ==
--- NOTE | 2022-09-04 10:25 | RAD_ITS ---
INDICATION: BACK PAIN EXAMINATION/TECHNIQUE: X-RAY - XR Spine Lumbar Min 4 Views COMPARISON: None. FINDINGS: VERTEBRAE: Preserved vertebral body height. No fracture. No spondylolisthesis. Preservation of the normal lumbar lordosis. Facet arthropathy noted at L3-4, L4-5 and L5-S1 with probable multilevel spinal stenosis. DISCS: Narrowed disc spaces L4-5 and L5-S1 with multilevel endplate spurring. INCLUDED ABDOMEN: Included bowel gas pattern is non-obstructive. RAD/L/S Spine Min 4 Views IMPRESSION: Moderate spondylosis and probable spinal stenosis.. CT or MRI would be helpful for further evaluation No acute fracture or other significant bony pathology. Electronically Signed: Terrance Hill MD at 17:41 EST ,
== END | disposition home or self-care (01) ==
LOC: MTRAD 10:22
PROVIDERS: PCP Family Medicine; Referring Provider Family Medicine; Visit Provider Family Medicine
DX: M47.816 Spondylosis without myelopathy or radiculopathy, lumbar region (principal)
CPT/HCPCS: 72110

== ENCOUNTER 2022-09-25 10:54 | Outpatient (RCR) | payer MEDICARE, OTHER, SELFPAY ==
[2022-09-20 07:45] VITALS: BMI 36.5
[2022-09-26 15:40] LABS: INR Fingerstick 2.2; Prothrombin Time Fingerstick 26.3 SEC (11.7-14.9)
== END 2022-09-25 18:00 | disposition home or self-care (01) ==
LOC: MTLAB 10:54
PROVIDERS: Family Provider Family Medicine; PCP Family Medicine; Referring Provider Internal Medicine Cardiovascular Disease; Visit Provider Internal Medicine Cardiovascular Disease
DX: I48.19 Other persistent atrial fibrillation (principal); Z79.01 Long term (current) use of anticoagulants
CPT/HCPCS: 36416; 85610

== ENCOUNTER → 2022-09-29 | Outpatient (CLI) | payer MEDICARE, OTHER, SELFPAY ==
--- NOTE | 2022-09-29 07:15 | MRI_ITS ---
STUDY: MRI LUMBAR SPINE WITHOUT CONTRAST REASON FOR EXAM: Male, 67 years old. Spinal stenosis. Dull back pain TECHNIQUE: Standardized fat and water weighted pulse sequences were obtained in the sagittal and axial planes. COMPARISON: Lumbar spine radiographs 09/04/2022. FINDINGS: T10-T11: (Sagittal only). Normal endplates. Mild disc space height narrowing. No ventral extradural defect. Normal central canal and bilateral intervertebral neural foramina. T11-T12: (Sagittal only). Normal endplates. Normal disc height with mild loss of disc hydration. No ventral extradural defect. Normal central canal and bilateral intervertebral neural foramina. T12-L1: (Sagittal only). Normal endplates. Normal disc height, hydration and morphology. No ventral extradural defect. Normal central canal and bilateral intervertebral neural foramina. Normal lumbar lordosis. There is no substantial scoliosis. Normal conus medullaris that terminates at the mid L1 vertebral body level. L1-2: Normal endplates. Normal disc height, hydration and morphology. Mild bilateral degenerative facet arthropathy. Normal central canal and bilateral lateral recesses. Normal bilateral intervertebral neural foramina. L2-3: Normal endplates. Normal disc height, hydration and morphology. Mild bilateral degenerative facet arthropathy. Normal central canal and bilateral lateral recesses. Normal bilateral intervertebral neural foramina. L3-4: Normal L3 inferior endplate. Schmorl''s node in the anterior L4 superior endplate. Normal disc height. Degenerative vertebral marrow fat infiltration of nearly the entire L4 vertebral body with sparing of the pedicles and posterior osseous elements. Minimal degenerative anterolisthesis of L3 on L4. Mild to moderate bilateral degenerative facet arthropathy. Prominent dorsal epidural lipomatosis. Mild central canal stenosis with an AP canal diameter 9 mm. Normal bilateral lateral recesses. Normal bilateral intervertebral neural foramina. L4-5: Normal endplates. Minimal disc space height narrowing. Mild degenerative anterolisthesis of L4 on L5. Pronounced left degenerative facet arthropathy with fluid inside the facet joint. Moderate right degenerative facet arthropathy with fluid inside the facet joint. Mild dorsal epidural lipomatosis. Pronounced central canal stenosis with an AP canal diameter of 4 mm. Normal bilateral lateral recesses. Mild stenosis of the left intervertebral neural foramen with suspicious osteophytic encroachment on the left L4 nerve. Mild stenosis of the right intervertebral neural foramen no suspicious impingement on the right L4 nerve. L5-S1: Modic type II degenerative vertebral marrow fat infiltration underneath the vertebral endplates. Pronounced disc space height narrowing. Normal central canal and bilateral lateral recesses. Mild bilateral degenerative facet arthropathy. Moderately pronounced stenosis of the right intervertebral neural foramen and moderate stenosis of the left intervertebral neural foramen. Normal visualized sacral ala. Normal visualized paraspinous soft tissue structures. MRI/Spine Lumbar (Routine) IMPRESSION: 1. Pronounced central canal stenosis at L4-L5 disc space level with an AP canal diameter of 4 mm, mild degenerative anterolisthesis of L4 on L5, pronounced left degenerative facet arthropathy causing mild stenosis of the left intervertebral neural foramen with suspicious osteophytic encroachment on the left L4 nerve and moderate right degenerative facet arthropathy causing mild stenosis of the right intervertebral neural foramen but no suspicious impingement of the right L4 nerve. 2. Moderately pronounced stenosis of the right L5-S1 intervertebral neural foramen and moderate stenosis of the left L5-S1 intervertebral neural foramen. 3. Mild central canal stenosis at L3-L4 disc space level with an AP canal diameter of 9 mm and minimal degenerative anterolisthesis of L3 on L4. 4. No MRI evidence of lumbar disc extrusion or disc protrusion. Electronically Signed: Juice Godoy MD at 10:09 EST ,
== END | disposition home or self-care (01) ==
LOC: MRI 07:15
PROVIDERS: PCP Family Medicine; Visit Provider Family Medicine
DX: M48.00 Spinal stenosis, site unspecified (principal)
CPT/HCPCS: 72148

== ENCOUNTER 2022-10-20 12:00 | Outpatient (RCR) | payer MEDICARE, OTHER, SELFPAY ==
--- NOTE | 2022-09-18 13:18 | HP.PTEVAL ---
Patient's Visit Information SIRISHA DE LEON is a 67 year old M referred to Physical Therapy by Dr. Americo Menendez MD with a diagnosis of BILATERAL SHOULDER PAIN. Date of Evaluation: 09/18/22 Physical Therapist: Herve Cloud, PT, Cert MDT, OCS - Visit Plan Frequency: 2x /Week Duration: 4 Weeks Plan: PT INTERVETIONS PROM/AAROM/STRETCHING SHOULDERS ,MANUAL THERAPY G-H JOINT MOBS,POSTURAL EX'S AND RTC/SCAPULAR STRENGTHENING ,MHP/CP - Subjective This 67 y/o male presents to physical therapy with bilateral shoulder pain. This patient has had shoulder pain for for many years thus has became progressively worse. Seen DR and recommend PT no diagnostics. Right worse than left. Aggravating factors activities [place] and lifting affects housework tasks. Alleviating factors rest. No medications. Patient has had no prior PT . Denies paresthesia/tingling. Patient pain occasional worse at night. Patient conditions affects QOL and function. Patient has no cervical ,patient has low back pain and plans to get MRI. Patient goals to have no more pain. Patient did have x-xays 2018 showed mod arthrosis of joint and large spur. SOCIAL: single. VOCATION: retired - Pain Right Shoulder Pain Intensity (Out of 10): 8 Pain Intensity Range: 10 Comment: worse , today 2/10 Left Shoulder Pain Intensity (Out of 10): 0 Pain Intensity Range: 10 - Objective POSTURE: rounded shoulder head forward. NEURO: denies paresthesia/tingling. PALAPTION: unremarkable. AROM: right shoulder flexion 100 degrees ,abduction 102 degrees ,IR L1 , left shoulders 110 degrees ,112 degrees , lR L2. PROM: shoulder flexion 110 degrees ,abduction 115 degrees in scapation ,ER 40 degrees ,left shoulder flexion 120 degrees ,abduction in scapation 125 degrees , 60 degrees. G-H capsular: mod on right ,left mild/mod - Special Tests R Shoulder Lift Off Test - Subscapular Tear: Negative R Shoulder Drop Sign - IS Test: Negative R Shoulder Empty Can - SS: Positive R Shoulder Neer - Impingement: Positive R Shoulder Skinner David - Impingement: Positive R Shoulder Shrug Sign - OA/Adhesive Capsulitis: Negative L Shoulder Drop Sign - IS Test: Negative L Shoulder Empty Can - SS: Positive L Shoulder Belly Press - SupScap: Positive L Shoulder Neer - Impingement: Positive L Shoulder Skinner David - Impingement: Positive L Shoulder Shrug Sign - OA/Adhesive Capsulitis: Positive - Balance/Special Test Scores Quick DASH Score: 47.7250 - Goals Goal 1:: Patient to be I with HEP for shoulder Goal Time Frame: 4-6 Weeks Goal 2:: Patient demonstrate 50% improvement with less pain and function Goal Time Frame: 4-6 Weeks Goal 3:: Patient improve ROM of bilateral shoulder by 10-15 degrees to improve function and ADLS' Goal Time Frame: 4-6 Weeks Goal 4:: Patient to improve function with ADLS and housework tasks above 90 degrees to improve function Goal Time Frame: 4-6 Weeks Goal 5:: Patient to improve quick dash by 5 points or > to improve QOL and function Goal Time Frame: 4-6 Weeks - Rehabilitation Potential Physical Therapy Diagnosis: This patient has right shoulder pain > left , with pain with tight G-H joint possible DJD ,decrease ROM and strength deficits thus benefit from skilled PT Rehabilitation Potential: Good - Anticipated Interventions Patient/Client Instruction: Educate patient on: Condition, Plan of Care For the Purpose of:: To decrease pain, To increase ROM, To improve muscle performance and motor function, To increase tolerance to activity/condition/position, To improve performance and independence with ADL's, To improve ability of physical actions for home/community/work/leisure, To improve health of tissue, To decrease soft tissue restriction, To increase flexibility/ROM, To prevent re-injury Therapeutic Exercise to Include: Strength training, Postural training, Flexibilty training, Passive ROM, Active ROM, Scapular Strength/Stabilization Comment: RTC For the Purpose of:: To decrease pain, To increase ROM, To improve muscle performance and motor function, To improve ability to perform ADL's, To increase tolerance to activity/condition/position, To improve ability of physical actions for home/community/work/leisure, To improve health of tissue, To decrease soft tissue restriction, To increase flexibility/ROM, To prevent re-injury, To improve tolerance to ADL's Manual Therapy Techniques to Include: Mobilization, Passive ROM Comment: G-H For the Purpose of:: To decrease pain, To increase ROM, To improve nutrient delivery to tissue, To increase oxygenation perfusion, To improve health of tissue, To decrease soft tissue restriction, To increase flexibility/ROM Thank you for the opportunity to evaluate your patient. For Medicare and Medicare HMO plans, please review the plan of care and approve it. It will need to be FAXED BACK to us at [phone] for Medicare purposes. For Medicare only, by signing this I certify the plan of care. Please let me know if there are questions or concerns regarding this plan of care. Physician Signature: Date:
--- NOTE | 2022-10-13 10:29 | HP.PTREVAL ---
Dr. Americo Menendez MD, It has been my pleasure to treat SIRISHA DE LEON over the last 9 visits for BILATERAL SHOULDER PAIN. Please see the progress note below for an update on the physical therapy plan of care! Subjective: Doing good therapy is helping Objective/Function: POSTURE: mild forward posture. PALAPTION: unremarkable. NEURO: denies paresthesia/tingling. AROM: shoulder flexion/abd 120 degrees right ,left 130 degrees , ,IR PELVIS. PROM: ER 65 right ,left 80 degrees. MMT: 4/5 ,deltoid 4-/5, Plan Plan: CONT WITH POC. PT INTERVETIONS PROM/AAROM/STRETCHING SHOULDERS ,MANUAL THERAPY G-H JOINT MOBS,POSTURAL EX'S AND RTC/SCAPULAR STRENGTHENING ,MHP/CP Balance/Gait/Functional tests - Balance/Special Test Scores Quick DASH Score: 31.8175 Goals Goal 1:: Patient to be I with HEP for shoulder Goal Time Frame: 4-6 Weeks Goal Progress: Progressing Goal 2:: Patient demonstrate 50% improvement with less pain and function Goal Time Frame: 4-6 Weeks Goal Progress: Progressing Goal 3:: Patient improve ROM of bilateral shoulder by 10-15 degrees to improve function and ADLS' Goal Time Frame: 4-6 Weeks Goal Progress: Progressing Goal 4:: Patient to improve function with ADLS and housework tasks above 90 degrees to improve function Goal Time Frame: 4-6 Weeks Goal Progress: Progressing Goal 5:: Patient to improve quick dash by 5 points or > to improve QOL and function Goal Time Frame: 4-6 Weeks Goal Progress: Progressing Anticipated Interventions Patient/Client Instruction: Educate patient on: Condition, Plan of Care For the Purpose of:: To decrease pain, To increase ROM, To improve muscle performance and motor function, To increase tolerance to activity/condition/position, To improve performance and independence with ADL's, To improve ability of physical actions for home/community/work/leisure, To improve health of tissue, To decrease soft tissue restriction, To increase flexibility/ROM, To prevent re-injury Therapeutic Exercise to Include: Strength training, Postural training, Flexibilty training, Passive ROM, Active ROM, Scapular Strength/Stabilization Comment: RTC For the Purpose of:: To decrease pain, To increase ROM, To improve muscle performance and motor function, To improve ability to perform ADL's, To increase tolerance to activity/condition/position, To improve ability of physical actions for home/community/work/leisure, To improve health of tissue, To decrease soft tissue restriction, To increase flexibility/ROM, To prevent re-injury, To improve tolerance to ADL's Manual Therapy Techniques to Include: Mobilization, Passive ROM Comment: G-H For the Purpose of:: To decrease pain, To increase ROM, To improve nutrient delivery to tissue, To increase oxygenation perfusion, To improve health of tissue, To decrease soft tissue restriction, To increase flexibility/ROM Please do not hesitate to contact me at [phone] by phone or if you have questions or concerns regarding this new plan of care! Sincerely, Herve Cloud, PT, Cert MDT, OCS
--- NOTE | 2023-02-28 13:36 | HP.PTDCSUM ---
Discharge Summary D/C summary: It has been my pleasure to treat SIRISHA DE LEON referred by Dr. Americo Menendez MD, with the diagnosis of BILATERAL SHOULDER PAIN for a total of 11 visit(s). Discharge Date: Please see the following information for a summary of their discharge status. Subjective Subjective: Doing okay Pain Right Shoulder: Pain Intensity (Out of 10): 2 Left Shoulder: Pain Intensity (Out of 10): 0 Overall Improvement % Improvement: 75 Objective Objective/Function: Did well with ex's with ROM/stretching and strengthening GOALS MET SHOULDER ROM WFL MMT: GOOD STRENGTH Goals Goal 1:: Patient to be I with HEP for shoulder Goal Progress: Progressing Goal 2:: Patient demonstrate 50% improvement with less pain and function Goal Progress: Progressing Goal 3:: Patient improve ROM of bilateral shoulder by 10-15 degrees to improve function and ADLS' Goal Progress: Progressing Goal 4:: Patient to improve function with ADLS and housework tasks above 90 degrees to improve function Goal Progress: Progressing Goal 5:: Patient to improve quick dash by 5 points or > to improve QOL and function Goal Progress: Progressing Plan Plan: D/C D/C Information d/c sentence: If there are questions or concerns regarding this patient's physical therapy, please feel free to call me at [phone]. Thank you for the referral of this patient. Sincerely, Herve Cloud PT, Cert MDT, OCS Balance/Gait/Functional tests Balance/Special Test Scores Quick DASH Score: 9.0900
== END 2022-10-20 19:00 | disposition home or self-care (01) ==
LOC: PT 12:00
PROVIDERS: PCP Family Medicine; Referring Provider Family Medicine; Visit Provider Family Medicine
DX: M25.511 Pain in right shoulder (principal); M25.512 Pain in left shoulder
CPT/HCPCS: 97110; 97162

== ENCOUNTER 2022-10-23 14:40 | Outpatient (RCR) | payer MEDICARE, OTHER, SELFPAY ==
[2022-10-17 23:25] VITALS: BMI 36.5
[2022-10-23 15:20] LABS: INR Fingerstick 2.6; Prothrombin Time Fingerstick 30.5 SEC (11.7-14.9)
== END 2022-11-17 21:03 | disposition home or self-care (01) ==
LOC: MTLAB 14:40
PROVIDERS: Family Provider Family Medicine; PCP Family Medicine; Referring Provider Internal Medicine Cardiovascular Disease; Visit Provider Internal Medicine Cardiovascular Disease
DX: I48.19 Other persistent atrial fibrillation (principal); Z79.01 Long term (current) use of anticoagulants
CPT/HCPCS: 36416; 85610

== ENCOUNTER 2022-11-21 13:57 | Outpatient (RCR) | payer MEDICARE, OTHER, SELFPAY ==
[2022-11-17 21:03] VITALS: BMI 36.5
[2022-11-21 14:11] LABS: Prothrombin Time Fingerstick 22.2 SEC (11.7-14.9)
== END 2022-12-17 05:29 | disposition home or self-care (01) ==
LOC: MTLAB 13:57
PROVIDERS: Family Provider Family Medicine; PCP Family Medicine; Referring Provider Internal Medicine Cardiovascular Disease; Visit Provider Internal Medicine Cardiovascular Disease
DX: I48.19 Other persistent atrial fibrillation (principal); Z79.01 Long term (current) use of anticoagulants
CPT/HCPCS: 36416; 85610

== ENCOUNTER → 2023-01-01 | Outpatient (CLI) | payer MEDICARE, OTHER, SELFPAY ==
[2023-01-01 10:44] LABS: ALB/GLOB Ratio 1.2 RATIO (0.9-2.4); AST(SGOT) 17 U/L (15-37); Alanine Aminotransfer ALT/SGPT 28 U/L (16-61); Albumin, Serum 3.7 g/dL (3.2-5.0); Alkaline Phosphatase 97 U/L (45-117); Anion Gap 7 (5-15); BUN 22 mg/dL (7-18); BUN/Creat Ratio 15.8 RATIO (10-20); Calcium,Total 8.9 mg/dL (8.5-10.1); Chloride 105 mmol/L (98-107); Cholesterol 170 mg/dL (200); Creatinine, Serum 1.39 mg/dL (0.70-1.30); EST Glomerular Filtration Rate 54 mL/min (>60); Est Glom Filt Rate - Afr Amer 65 mL/min (>60); Globulin 3.2 g/dL (2.2-4.2); Glucose 101 mg/dL (74-106); High Density Lipoprotein 33 mg/dL; Potassium 3.9 mmol/L (3.5-5.1); Protein, Total 6.9 g/dL (6.4-8.2); Sodium Level 142 mmol/L (136-145); Triglycerides 129 mg/dL; Very Low Density Lipoprotein 26 mg/dL (5-40)
== END | disposition home or self-care (01) ==
LOC: MFPLAB 08:48
PROVIDERS: PCP Family Medicine; Visit Provider Family Medicine
DX: I10 Essential (primary) hypertension (principal)
CPT/HCPCS: 36415; 80053; 80061

== ENCOUNTER 2023-01-16 11:25 | Outpatient (RCR) | payer MEDICARE, OTHER, SELFPAY ==
[2022-12-17 05:29] VITALS: BMI 36.5
[2022-12-18 11:16] LABS: INR Fingerstick 2.2; Prothrombin Time Fingerstick 23.7 SEC (11.7-14.9)
[2023-01-16 13:26] LABS: INR Fingerstick 1.3; Prothrombin Time Fingerstick 14.3 SEC (11.7-14.9)
== END 2023-01-16 12:35 | disposition home or self-care (01) ==
LOC: MTLAB 11:25
PROVIDERS: Family Provider Family Medicine; PCP Family Medicine; Referring Provider Internal Medicine Cardiovascular Disease; Visit Provider Internal Medicine Cardiovascular Disease
DX: I48.19 Other persistent atrial fibrillation (principal); Z79.01 Long term (current) use of anticoagulants
CPT/HCPCS: 36416; 85610

== ENCOUNTER 2023-02-02 10:29 | Outpatient (RCR) | payer MEDICARE, OTHER, SELFPAY ==
[2023-01-18 08:17] VITALS: BMI 36.5
[2023-02-02 10:36] LABS: INR Fingerstick 2.3; Prothrombin Time Fingerstick 24.6 SEC (11.7-14.9)
== END 2023-02-02 18:00 | disposition home or self-care (01) ==
LOC: MTLAB 10:29
PROVIDERS: Family Provider Family Medicine; PCP Family Medicine; Referring Provider Internal Medicine Cardiovascular Disease; Visit Provider Internal Medicine Cardiovascular Disease
DX: I48.19 Other persistent atrial fibrillation (principal); Z79.01 Long term (current) use of anticoagulants
CPT/HCPCS: 36416; 85610

== ENCOUNTER 2023-03-06 11:20 | Outpatient (RCR) | payer MEDICARE, OTHER, SELFPAY ==
[2023-02-17 02:51] VITALS: BMI 36.5
[2023-03-06 17:18] LABS: INR Fingerstick 1.7; Prothrombin Time Fingerstick 18.6 SEC (11.7-14.9)
== END 2023-03-19 18:00 | disposition home or self-care (01) ==
LOC: MTLAB 11:20
PROVIDERS: Family Provider Family Medicine; PCP Family Medicine; Referring Provider Internal Medicine Cardiovascular Disease; Visit Provider Internal Medicine Cardiovascular Disease
DX: I48.19 Other persistent atrial fibrillation (principal); Z79.01 Long term (current) use of anticoagulants
CPT/HCPCS: 36416; 85610

== ENCOUNTER 2023-03-21 10:11 | Outpatient (RCR) | payer MEDICARE, OTHER, SELFPAY ==
[2023-03-20 02:29] VITALS: BMI 36.5
[2023-03-21 10:27] LABS: INR Fingerstick 2.8; Prothrombin Time Fingerstick 29.7 SEC (11.7-14.9)
== END 2023-03-21 18:00 | disposition home or self-care (01) ==
LOC: MTLAB 10:11
PROVIDERS: Family Provider Family Medicine; PCP Family Medicine; Referring Provider Internal Medicine Cardiovascular Disease; Visit Provider Internal Medicine Cardiovascular Disease
DX: I48.19 Other persistent atrial fibrillation (principal); Z79.01 Long term (current) use of anticoagulants
CPT/HCPCS: 36416; 85610

== ENCOUNTER → 2023-03-28 | Outpatient (CLI) | payer MEDICARE, OTHER, SELFPAY ==
[2023-03-28 18:07] LABS: International Normalized Ratio 1.7; Prothrombin Time (Protime)PT. 20.4 SECONDS (11.7-14.9)
[2023-03-28 18:37] LABS: AST(SGOT) 18 U/L (15-37); Alanine Aminotransfer ALT/SGPT 20 U/L (16-61); Albumin, Serum 3.7 g/dL (3.2-5.0); Alkaline Phosphatase 87 U/L (45-117); Bilirubin, Direct 0.15 mg/dL (0.00-0.30); Cholesterol 195 mg/dL (200); Globulin 3.2 g/dL (2.2-4.2); High Density Lipoprotein 38 mg/dL; Protein, Total 6.9 g/dL (6.4-8.2); Triglycerides 199 mg/dL; Very Low Density Lipoprotein 40 mg/dL (5-40)
== END | disposition home or self-care (01) ==
PROVIDERS: Physician Assistant Medical; PCP Family Medicine; Referring Provider Nurse Practitioner Acute Care; Visit Provider Nurse Practitioner Acute Care
DX: E78.5 Hyperlipidemia, unspecified (principal); Z79.01 Long term (current) use of anticoagulants
CPT/HCPCS: 36415; 80061; 80076; 85610

== ENCOUNTER 2023-05-07 14:31 | Outpatient (RCR) | payer MEDICARE, OTHER, SELFPAY ==
[2023-04-20 02:17] VITALS: BMI 36.5
[2023-05-07 14:37] LABS: INR Fingerstick 2.6; Prothrombin Time Fingerstick 27.8 SEC (11.7-14.9)
== END 2023-05-07 18:00 | disposition home or self-care (01) ==
LOC: MTLAB 14:31
PROVIDERS: Family Provider Family Medicine; PCP Family Medicine; Referring Provider Internal Medicine Cardiovascular Disease; Visit Provider Internal Medicine Cardiovascular Disease
DX: I48.19 Other persistent atrial fibrillation (principal); Z79.01 Long term (current) use of anticoagulants
CPT/HCPCS: 36416; 85610

== ENCOUNTER 2023-06-06 14:27 | Outpatient (RCR) | payer MEDICARE, OTHER, SELFPAY ==
[2023-05-20 05:10] VITALS: BMI 36.5
[2023-06-06 14:34] LABS: INR Fingerstick 2.7
== END 2023-06-06 18:00 | disposition home or self-care (01) ==
LOC: MTLAB 14:27
PROVIDERS: Family Provider Family Medicine; PCP Family Medicine; Referring Provider Internal Medicine Cardiovascular Disease; Visit Provider Internal Medicine Cardiovascular Disease
DX: I48.19 Other persistent atrial fibrillation (principal); Z79.01 Long term (current) use of anticoagulants
CPT/HCPCS: 36416; 85610

== ENCOUNTER → 2023-06-26 | Outpatient (CLI) | payer MEDICARE, OTHER, SELFPAY ==
[2023-06-26 11:18] LABS: INR Fingerstick 1.2; Prothrombin Time Fingerstick 13.9 SEC (11.7-14.9)
== END | disposition home or self-care (01) ==
PROVIDERS: PCP Family Medicine; Referring Provider Nurse Practitioner Acute Care; Visit Provider Nurse Practitioner Acute Care
DX: Z79.01 Long term (current) use of anticoagulants (principal)
CPT/HCPCS: 36416; 85610

== ENCOUNTER 2023-07-18 10:33 | Outpatient (RCR) | payer MEDICARE, OTHER, SELFPAY ==
[2023-06-19 23:17] VITALS: BMI 36.5
[2023-07-04 15:42] LABS: INR Fingerstick 1.4; Prothrombin Time Fingerstick 16.2 SEC (11.7-14.9)
[2023-07-18 10:40] LABS: INR Fingerstick 3.7; Prothrombin Time Fingerstick 38.8 SEC (11.7-14.9)
== END 2023-07-19 18:00 | disposition home or self-care (01) ==
LOC: MTLAB 10:33
PROVIDERS: Family Provider Family Medicine; PCP Family Medicine; Referring Provider Internal Medicine Cardiovascular Disease; Visit Provider Internal Medicine Cardiovascular Disease
DX: I48.19 Other persistent atrial fibrillation (principal); Z79.01 Long term (current) use of anticoagulants
CPT/HCPCS: 36416; 85610

== ENCOUNTER 2023-08-08 12:49 | Outpatient (RCR) | payer MEDICARE, OTHER, SELFPAY ==
[2023-07-20 04:26] VITALS: BMI 36.5
[2023-07-25 10:23] LABS: INR Fingerstick 1.7; Prothrombin Time Fingerstick 19.4 SEC (11.7-14.9)
[2023-08-08 19:36] LABS: INR Fingerstick 3.7; Prothrombin Time Fingerstick 38.6 SEC (11.7-14.9)
== END 2023-08-19 18:00 | disposition home or self-care (01) ==
LOC: MTLAB 12:49
PROVIDERS: Family Provider Family Medicine; PCP Family Medicine; Referring Provider Internal Medicine Cardiovascular Disease; Visit Provider Internal Medicine Cardiovascular Disease
DX: I48.19 Other persistent atrial fibrillation (principal); Z79.01 Long term (current) use of anticoagulants
CPT/HCPCS: 36416; 85610

== ENCOUNTER 2023-09-17 11:07 | Outpatient (RCR) | payer MEDICARE, OTHER, SELFPAY ==
[2023-08-19 23:43] VITALS: BMI 36.5
[2023-09-17 11:18] LABS: INR Fingerstick 2.2
== END 2023-09-17 18:00 | disposition home or self-care (01) ==
LOC: MTLAB 11:07
PROVIDERS: Family Provider Family Medicine; PCP Family Medicine; Referring Provider Internal Medicine Cardiovascular Disease; Visit Provider Internal Medicine Cardiovascular Disease
DX: I48.19 Other persistent atrial fibrillation (principal); Z79.01 Long term (current) use of anticoagulants
CPT/HCPCS: 36416; 85610

== ENCOUNTER 2023-10-15 14:37 | Outpatient (RCR) | payer MEDICARE, OTHER, SELFPAY ==
[2023-09-19 23:54] VITALS: BMI 36.5
[2023-10-16 14:22] LABS: Prothrombin Time Fingerstick 32.5 SEC (11.7-14.9)
== END 2023-10-18 18:00 | disposition home or self-care (01) ==
LOC: MTLAB 14:37
PROVIDERS: Family Provider Family Medicine; PCP Family Medicine; Referring Provider Internal Medicine Cardiovascular Disease; Visit Provider Internal Medicine Cardiovascular Disease
DX: I48.19 Other persistent atrial fibrillation (principal); Z79.01 Long term (current) use of anticoagulants
CPT/HCPCS: 36416; 85610

== ENCOUNTER 2023-11-12 14:29 | Outpatient (RCR) | payer MEDICARE, OTHER, SELFPAY ==
[2023-10-19 02:27] VITALS: BMI 36.5
[2023-11-12 17:45] LABS: International Normalized Ratio 2.5; Prothrombin Time (Protime)PT. 27.1 SECONDS (11.7-14.9)
== END 2023-11-18 02:12 | disposition home or self-care (01) ==
LOC: MTLAB 14:29
PROVIDERS: Family Provider Family Medicine; PCP Family Medicine; Referring Provider Internal Medicine Cardiovascular Disease; Visit Provider Internal Medicine Cardiovascular Disease
DX: I48.19 Other persistent atrial fibrillation (principal); Z79.01 Long term (current) use of anticoagulants
CPT/HCPCS: 36415; 85610

== ENCOUNTER 2023-12-14 15:10 | Outpatient (RCR) | payer MEDICARE, OTHER, SELFPAY ==
[2023-11-18 02:12] VITALS: BMI 36.5
[2023-12-14 17:47] LABS: International Normalized Ratio 2.3; Prothrombin Time (Protime)PT. 24.9 SECONDS (11.7-14.9)
[2023-12-14 17:51] LABS: Absolute Lymphocyte Count 1.34 X10^3/uL (0.83-4.51); Absolute Neutrophil Count 5.7 X10^3/uL (2.0-7.7); Basophil# 0.07 X10^3/uL; Basophil% 0.9 % (0-1); Eosinophils% 2.5 % (0-5); Lymphocyte # 1.34 X10^3/ul (0.83-4.51); Lymphocyte % 16.7 % (19-41); Mean Corp Hgb Conc 32.6 g/dL (32-36); Mean Corpuscular Hgb 29.1 pg (27.0-32.0); Mean Corpuscular Volume 89.1 fL (80-94); Monocyte# 0.72 X10^3/uL; NRBC Flagged by Analyzer 0 % (0-5); Neutrophil # 5.69 X10^3/uL (2.7-7.7); Neutrophil % 70.7 % (47-70); Platelet Count 287 K/mm3 (150-450); RBC Distribution Width CV 13.7 % (11.6-14.6); RBC Distribution Width SD 44.3 fl (35.1-43.9); Red Blood Count 5.16 M/mm3 (4.6-6.2)
[2023-12-14 18:10] LABS: Anion Gap 6 (5-15); BUN 19 mg/dL (7-18); BUN/Creat Ratio 13.5 RATIO (10-20); Calcium,Total 9.2 mg/dL (8.5-10.1); Chloride 105 mmol/L (98-107); Cholesterol 191 mg/dL (200); Creatinine, Serum 1.41 mg/dL (0.70-1.30); EST Glomerular Filtration Rate 53 mL/min (>60); Est Glom Filt Rate - Afr Amer 64 mL/min (>60); Glucose 100 mg/dL (74-106); High Density Lipoprotein 33 mg/dL; Sodium Level 138 mmol/L (136-145); Triglycerides 262 mg/dL; Very Low Density Lipoprotein 52 mg/dL (5-40)
== END 2023-12-18 22:31 | disposition home or self-care (01) ==
LOC: MTLAB 15:10
PROVIDERS: Nurse Practitioner Gerontology; Family Provider Family Medicine; PCP Family Medicine; Referring Provider Internal Medicine Cardiovascular Disease; Visit Provider Internal Medicine Cardiovascular Disease
DX: I48.19 Other persistent atrial fibrillation (principal); Z79.01 Long term (current) use of anticoagulants; Z01.818 Encounter for other preprocedural examination
CPT/HCPCS: 36415; 80048; 80061; 85025; 85610

== ENCOUNTER → 2024-01-01 | Outpatient (CLI) | payer MEDICARE, OTHER, SELFPAY ==
--- NOTE | 2024-01-01 07:20 | MRI_ITS ---
HISTORY: Lower back pain x1.5 years--surgery for 01/02/24. TECHNIQUE: Sagittal MR images of the lumbar spine were obtained without intravenous contrast. 80 images. COMPARISON: XR 11/14/2023, MR 09/29/2022. FINDINGS: Axial images could not be obtained due to claustrophobia. Motion artifact also present. VERTEBRAE: Vertebral body heights maintained. Transitional lumbosacral anatomy noted. Chronic degenerative endplate changes with Schmorl''s node at the L4 superior endplate. Degenerative bone marrow endplate changes at L5-S1. ALIGNMENT: Chronic 2 mm anterolisthesis of L4-5. CONUS: Normal morphology and position of the conus medullaris at L1. INTERVERTEBRAL DISCS: T12-L1, L1-2: No significant posterior disc protrusion, central canal stenosis, or foraminal narrowing based on the sagittal images. L2-3: Minimal disc bulge and facet arthropathy resulting in minimal narrowing of the thecal sac and bilateral foramina, similar to prior based on the sagittal images. L3-4: Minimal disc bulge and facet arthropathy resulting in mild central canal stenosis and right foraminal narrowing, similar to prior based on the sagittal images. L4-5: Mild disc bulge with marked facet arthropathy, trace facet effusions, and probable synovial cyst resulting in the thecal sac diameter of 3 mm, previously 4 mm. Mild bilateral foraminal narrowing with probable left L4 nerve root impingement, similar to prior. L5-S1: Marked intervertebral disc space narrowing with mild posterior osteophytes and facet arthropathy. No significant central canal stenosis. Moderate right and mild left foraminal narrowing, similar to prior. SOFT TISSUES: Posterior subcutaneous edema. MRI/Spine Lumbar (Routine) IMPRESSION: Incomplete examination with motion artifact. No axial images could be obtained. Recommend repeat examination with the patient is able. Progression of degenerative disc and facet disease at L4-5 with mild chronic anterolisthesis resulting in increased severe spinal canal stenosis. Mild bilateral foraminal narrowing with probable left L4 nerve root impingement, similar to prior. Moderate right and mild left foraminal narrowing of L5-S1, similar to prior. Multilevel degenerative disc disease. No significant interval change at T12-L1 through L3-4 based on sagittal images. Electronically Signed: Sisi Griffith MD at 10:13 EDT ,
== END | disposition home or self-care (01) ==
LOC: MRI 07:09
PROVIDERS: PCP Family Medicine; Referring Provider Orthopaedic Surgery Orthopaedic Surgery of the Spine; Visit Provider Orthopaedic Surgery Orthopaedic Surgery of the Spine
DX: M43.16 Spondylolisthesis, lumbar region (principal); M48.061 Spinal stenosis, lumbar region without neurogenic claudication
CPT/HCPCS: 72148

== ENCOUNTER 2024-01-02 09:13 | Inpatient (IN) | payer MEDICARE, OTHER, SELFPAY ==
--- NOTE | 2023-12-21 08:16 | EKG12_ITS ---
Test Reason : PRE-OP Blood Pressure : / mmHG Vent. Rate : 068 BPM Atrial Rate : 159 BPM P-R Int : 000 ms QRS Dur : 072 ms QT Int : 414 ms P-R-T Axes : 000 076 094 degrees QTc Int : 440 ms Atrial fibrillation Abnormal ECG Confirmed by MARION COSTELLO, TRACY ([id number]), sports editor BALA AVILEZ ([id number]) on 12/24/2023 11:47:00 AM Referred By: Jose Combs Confirmed By:TRACY SCHULTZ MD
[2023-12-21 09:26] LABS: Magnesium 2.5 mg/dL (1.6-2.6)
[2023-12-21 11:23] LABS: HIV - WCH Non-Reactive (Nonreactive); Hepatitis B Surface Antibody Non-Reactive; Hepatitis C Antibody Non-Reactive (Nonreactive)
[2023-12-22 08:11] LABS: Hepatitis A AB, Total Negative (Negative)
[2024-01-02] VITALS (15 sets, daily range): BP systolic 122–162; BP diastolic 70–102; PULSE 72–81; RESP 14–18; TEMP 35.9–37.1; O2SAT 93–100; BMI 35.5
--- NOTE | 2024-01-02 10:25 | PCM.HP.BLA ---
History and Physical Date of Admission: 01/02/24 MR#: [id number] Acct: [id number] Name: SIRISHA DE LEON Rep #: [id number] : 1955 Provider: Dr. Jose Combs MD Age/Sex: 68/M Location[place] [facility] [place] Status: Signed Intake Vital Signs 11/13/2412:29 12/19/2413:26 Height 5 ft 8 in 5 ft 9 in Intake Visit Reasons: lumbar spine Chief Complaint: Pre-op Accompanied by: Is patient in pain?: Yes Allergies No Known Allergies Allergy (Verified 12/26/23 09:43) Medications lorazepam 0.5 mg tablet 0.5 mg PO BID PRN PRN Anxiety 05/15/16 [History Confirmed 12/26/23] amlodipine 5 mg tablet 5 mg PO DAILY HEART #90 tabs 03/12/23 [Rx Confirmed 12/26/23] lisinopril 40 mg tablet 40 mg PO DAILY HYPERTENSION #90 tabs 03/12/23 [Rx Confirmed 12/26/23] metoprolol succinate 50 mg tablet,extended release 24 hr 50 mg PO DAILY HYPERTENSION #90 tabs 03/12/23 [Rx Confirmed 12/26/23] warfarin 4 mg tablet 4 mg PO .COMPLEX BLOOD THINNER 12/19/23 [History Confirmed 12/26/23] amoxicillin 875 mg-potassium clavulanate 125 mg tablet 1 tab PO Q12H 10 days #20 tabs 12/20/23 [Rx Confirmed 12/26/23] lorazepam 2 mg tablet 2 mg PO ONCE Claustrophobia-please take 45 minutes prior to MRI #2 tabs 12/26/23 [Rx Confirmed 12/26/23] PFSH Medical History Anxiety Arthritis Cancer Cardiology follow-up encounter Essential (primary) hypertension History of atrial fibrillation History of echocardiogram History of edema History of stress test Hyperlipidemia Hypertension Lymphoma Non-smoker Obesity Persistent atrial fibrillation Renal insufficiency Wears glasses Surgical History History of cardioversion (05/15/16) History of renal stent History of right inguinal hernia repair History of wisdom tooth extraction Family History Grandmother HypertensionFather FH: aortic aneurysm Social History Smoking Status: Never smoker alcohol intake: never substance use type: does not use caffeine: Yes Type: coffee Number of servings: 1 what type of physical activity do you participate in: none seatbelt use: always do you feel safe at home: Yes HPI lumbar spine Details: This documentation accurately reflects the service provided and the decisions made by me, Dr. Jose Combs MD 12/26/23 0937. Part of today?s visit was documented by Meena Estrada ATC, acting as scribe. SIRISHA DE LEON is a 68 year old M here today for pre-op anterior and posterior fusion L4-5 DOS 01/02/2024. Patient states his lumbar spine is tight today. Patient states that his lumbar spine pain has pretty much stayed the same since the last time he was seen in here. Sirisha continues to have low back pain with radiation to both lower extremities along with this difficulty walking distances. He is recovering from bronchitis and his antibiotic question and later this week. He denies any fevers. He denies any shortness of breath. He is going to stop Coumadin ahead of surgery. He denies any injuries or falls or any new or symptoms since last seen by me. Following his his previous history: 11/23/23: SIRISHA DE LEON is a 68 year old M here today for lumbar spine pain and a second opinion on surgery options. Patient states that his lumbar spine pain seems to be getting worse since he was last seen in here with Dr. Bauer on 11/14/2023. Patient denies taking any pain medications for the pain. Patient states most of his pain is in the lumbar spine, wraps around into his hips and into the front of his legs. Patient states he does get numbness and tingling down into his legs at times. Patient has gotten injections in the back with the most recent being in May of 2023. Sirisha has been seen by Dr. Bauer multiple times who has recommended surgery and referred to me. He has had low back pain for many years with radiation to both lower extremities and difficulty walking distances. He finds himself leaning on the shopping cart when going shopping. He can walk about 1-2 blocks after which she has to find a place to sit down or lean onto something. He has significant numbness in the legs that worsens with walking. He has tried epidural injections and likely ablations by pain management. He has tried physical therapy as well without significant help. He is nondiabetic. He has A-fib and is on Coumadin. Ortho Exam General General: Yes no acute distress Neurologic: Yes alert and Yes oriented x3 Spine SPINE TESTING CERVICAL THORACIC LUMBAR Musculoskeletal Strength 0=absent - 5=normal Details: Examination of the lower back shows midline and bilateral paraspinal tenderness. Neurologic evaluation of lower extremity shows 5 x 5 power in all muscles normal sensations in all dermatomes. Passive straight leg raise test is negative bilaterally. Coding Level of Care Code Off vis,est,level 4 Diagnoses Spondylolisthesis, lumbar region M43.16 Spinal stenosis at L4-L5 level M48.061 Time Spent (min) 35 Comment Modifier 57 Assessment and Plan Assessment and Plan (1) Spondylolisthesis, lumbar region: Status: Acute (2) Spinal stenosis at L4-L5 level: Status: Acute Orders: Orders Spine Lumbar (Routine) Today M43.16 - Spondylolisthesis, lumbar region, M48.061 - Spinal stenosis, lumbar region without neurogenic claudication Medications: New lorazepam 2 mg PO ONCE 2 tabs 0RF Claustrophobia-please take 45 minutes prior to MRI Plan I again reviewed his previous x-rays and MRI of the lumbar spine. These show L4-5 grade 1 spondylolisthesis with dynamic instability. There is significant central and foraminal stenosis at this level. Mild disc degeneration L3-4 noticed. L5-S1 has likely developed autofusion. He has transitional lumbosacral transitional anatomy with the S1 likely lumbarized but adequately fused to the rest of the sacrum. I explained to him the imaging findings in detail. I explained to him the instability at L4-5 and the stenosis with the resultant neurogenic claudication that he is suffering from. I explained to him treatment options which include continued nonoperative treat measures versus surgery. Patient has exhausted nonsurgical treatment with multiple epidural injections through pain management as well as physical therapy. He would like to proceed with surgical intervention. Surgical options were discussed in detail. L4-5 anterior posterior fusion with indirect decompression was discussed in detail. All risk benefits and alternatives were discussed. The risks include but are not limited to infection, bleeding, injury to nerves and vessels, nerve root injury, foot drop, pseudoarthrosis, hardware failure, adjacent segment degeneration, need for further surgery, persistent pain, DVT, pulmonary embolism, cardiopulmonary event, hematoma, visceral injury, pneumonia, atelectasis. 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 All restrictions after surgery were discussed in detail. All questions were answered. Patient is on Coumadin and will need to be held for duration of time prior to surgery and restarted 3 days after surgery. Patient was in agreement. Consent was signed. I reviewed his MRI done yesterday as an update from his previous MRI. No change in operative plans.
[2024-01-02] MEDS: Acetaminophen 500 MG Tablet 1000 MG PO ×2 (10:47→21:25)
[2024-01-02] MEDS: Lactated Ringers 1,000 ML 15 ML IV (10:47)
[2024-01-02] MEDS: Magnesium 1 GM over 15 mins IV (10:47)
--- NOTE | 2024-01-02 10:52 | CASEMGMT ---
Social Work SW received call from pt's nurse stating pt is requesting to complete advance directive prior to surgery. IVAN met with pt and friend Xi in AC room. SW introduced self and role of SW. SW explained HCPOA and living will and pt is choosing to complete documents. SW assisted pt with completion on Living will and HCPOA. Pt naming his friend Xi Blackwell as HCPOA. Original given to pt and copy placed on patient chart. MAYKEL Greene
[2024-01-02 11:13] LABS: Bedside Glucose 104 mg/dL (74-106)
[2024-01-02] MEDS: Cefazolin 2 GM in 0.9% Normal Saline (100mL Bag) 100 ML IV ×2 (11:30→18:49)
--- NOTE | 2024-01-02 11:30 | RAD_ITS ---
EXAM: XR LUMBOSACRAL SPINE, 2 OR 3 VIEWS CLINICAL INDICATION: ANTERIOR AND POSTERIOR FUSION L4-5 TECHNIQUE: Frontal and lateral views of the lumbar spine and sacrum. COMPARISON: 11/14/2023. FINDINGS: Intraoperative fluoroscopic digital radiographs showing progression of posterior and anterior ACDF using disc implant with radiopaque markers inside the L4-L5 disc space and posterior fusion using metallic rods and pedicular screws. RAD/Lumbar Spine 2 or 3 Views IMPRESSION: 1. Intraoperative fluoroscopic a digital radiographs following progression and interventional subluxation of disc implant containing radiopaque markers inside the L4-L5 disc space and left placement of metallic rods and pedicular screws at the L4-L5 disc space level. 2. Total fluoroscopy time: 130 seconds. 3. Total radiation dose of 59.21 mGy. Electronically Signed: Juice Godoy MD at 14:51 EDT ,
[2024-01-02] MEDS: Ropivacaine 0.5% 30 ML Vial (14:45)
--- NOTE | 2024-01-02 15:04 | PCM.OPRPT ---
Report of Operation Date of Procedure: 01/02/24 Description of Surgical Findings:: Preoperative diagnosis: L4-5 spondylolisthesis, disc degeneration, stenosis with neurogenic claudication, facet synovial cyst Postoperative diagnosis: Same Name of procedures L4-5 oblique lumbar interbody fusion (OLIF), minimally invasive left sided approach, lateral decubitus: ? L4-5 anterolateral spinal fusion 35240 ? L4-5 insertion of cage 87605 ? Bone graft aspirate left iliac crest, separate incision CPT 90271 ? Allograft cancellous chips Attending Surgeon: Dr. Jose Combs Estimated blood loss: 100 mL Anesthesia: General Complications: None Indications: Patient is a 68-year-old gentleman who has had a long history of low back pain and bilateral lower extremity numbness and difficulty walking distances. Xrays & MRI revealed L5-S1 autofusion, L4-5 disc degeneration with spondylolisthesis and stenosis, facet synovial cyst. After undergoing a prolonged period of nonoperative treatment, the patient elected to undergo surgical decompression & fusion. All surgical options were discussed with the patient including anterior and posterior approaches. All risks and benefits associated with the procedure were explained to the patient. The risks include but are not limited to infection, bleeding, injury to nerves and vessels including major vessels like IVC and aorta, persistent paresthesia, persistent pain, dural tear, need for further procedures, adjacent segment degeneration, pseudoarthrosis, hardware failure, retrograde ejaculation, paralytic ileus, etc. Procedure: The patient was identified in the preoperative holding suite using Unique patient identifiers. Skin was marked, consent was reviewed, and all questions were answered. The patient was then brought back to the operative room. A surgical timeout was performed to make sure correct procedure was being done on the correct patient and all operative room staff were on the same page. General endotracheal anesthesia was then given to the patient. Lamar catheter was inserted. The patient was then carefully positioned in right lateral decubitus position with the left side up on a regular OR table. Axillary roll was placed and all bony prominences were well- padded. Hip positioners were placed in the posterior buttocks and anterior sternal area. The surgical area was prepped and draped in usual fashion. Preoperative antibiotic was injected IV as preoperative antibiotic. A final timeout was then again done just before starting the procedure. A 2 inch incision oblique was taken in the left lower quadrant of the abdomen 2 fingerbreadths away from the iliac crest and the lower ribs. Sharp dissection with Bovie was carried out up to the fascia covering the external oblique. The external oblique, internal oblique and transversus abdominis muscles were split along the muscle fibers and retroperitoneal space was entered. Sponge sticks were utilized to move the bowel and peritoneum [id number]-way and psoas muscle was exposed staying within the retroperitoneal plane. Four Eyes Clubframe retractor system was positioned and the retractor blade was applied onto the psoas. The interval between psoas and midline structures was developed and appropriate retractors were placed. Once adequate interval was cleared, a disc space was identified and a marker x-ray was taken. This identified the L4-5 disc level. Annulotomy was done with a long handled knife. Pituitary was used to remove disc material. Curettes were used to prepare the endplates. Disc space spreaders were utilized to distract and increase the disc height. Near complete discectomy was performed. Trials of serially increasing sizes were used. A Jamshidi needle was used to aspirate bone marrow from the left iliac crest anteriorly through a small separate incision and this aspirate was mixed with the allograft bone chips. A Depuy [place] cage of size of the 18 x 15 x 14 mm with 15 degrees lordosis was packed with corticocancellous allograft bone chips mixed with bone marrow aspirate. This was inserted into the L4-5 disc space. AP and lateral C-arm pictures were taken to confirm good position of the cage. Some bone chips were also packed around the cages. Screw with washer was placed into the lower L4 body with a washer partially covering the cage at L4-5. Hemostasis was confirmed. The retractor blades were removed. Closure was done in layers with a continuous strand of # 1 Vicryl in all muscle layers. 2-0 Vicryl was used for subcutaneous tissue and 4-0 for Monocryl for the skin. Steri-Strips were applied and 4 x 4 gauze and Tegaderm were applied. Surgeon: Jose Combs Admit VTE Documentation VTE Mechan Device Prophylaxis: SCD's Procedures Musculoskeletal 20xxx-29xxx: Other Procedure See Report
--- NOTE | 2024-01-02 15:10 | PCM.OPRPT ---
Report of Operation Date of Procedure: 01/02/24 Description of Surgical Findings:: Preoperative diagnosis: L4-5 spondylolisthesis, disc degeneration, stenosis with neurogenic claudication, facet synovial cyst Postoperative diagnosis: Same Name of procedures: L4-5 posterior percutaneous pedicle screw instrumented fusion, prone: ? L4-5 posterior spinal fusion 90531 ? L4-5 posterior pedicle screw instrumentation 57967 ? Allograft cancellous chips 30851 Attending Surgeon: Dr. Jose Combs Estimated blood loss: 100 mL (total for entire case) Anesthesia: General Complications: None Description of procedure: After the anterior procedure was complete, the patient was then turned supine. The patient was then transferred to [facility] in prone position. Back was prepped and draped in usual fashion. C-arm AP view was then taken. C-arm was positioned in a way that L4 was centralized and superior endplate of was parallel to the beam. Spinous process was centered between the pedicles. Midline was marked with skin marker and lateral borders of the pedicles were also marked. Skin marker was also utilized to santino transversely across the middle of the pedicles at L4. 2 longitudinal paramedian incisions of 1 inch were placed. The fascia was incised vertically. Finger dissection was utilized to palpate the transverse process and facet joint. Viper Prime screws with towers were inserted and docked onto the transverse processes. This was then slowly moved medially to reach the superior articular process of L4. This was then confirmed on C-arm and then a mallet was utilized to drive the trocar into the pedicle going up to the medial wall of the pedicle on AP view. This was performed both sides. C-arm lateral view confirmed that the tip of the trocar was in the vertebral body, and the screw was advanced into the pedicle and vertebral body. This was repeated similarly at L5. Screw sizes were 7 x 50 mm at L4 and L5 bilaterally. 40 mm precontoured titanium 5.5 mm lordotic dayron on the right and 45 mm on the left were then passed through the screw extensions and reduced down to the screws with the help of Vindi instrumentation system on both sides. AP and lateral view of the C-arm showed good positioning of the screws and cages. Final tightening with the torque screwdriver was then completed. Taylor was utilized to decorticate the facet joint at L4-5 on the right side. Cancellous allograft bone chips mixed with bone marrow aspirate were then placed over this decorticated area. Hemostasis was achieved. Closure was done in layers with 0 Vicryls for the fascia, 2-0 Vicryls for the subcutaneous tissue, and Monocryl for the skin. Dermabond was applied. Dressings were applied covered with Tegaderm. The patient was then turned supine onto a hospital bed. The patient was extubated and taken to PACU in stable condition. The patient tolerated the procedure well and no complications occurred. Depuy [place] cage & Viper Prime minimally invasive pedicle screw instrumentation system was utilized in this case. No dural tear was identified intraoperatively. I was present for the entirety of the case and performed the surgery. Surgeon: Jose Combs Admit VTE Documentation VTE Mechan Device Prophylaxis: SCD's Procedures Musculoskeletal 20xxx-29xxx: Other Procedure See Report
--- NOTE | 2024-01-02 15:44 | SUR.PHASEI ---
FALLS ASLEEP AFTER MEDICATING, AWAKENS EASILY. PATIENT STATES HE DID NOT THINK HE WOULD HAVE PAIN AFTER SURGERY. EDUCATION & REASSURANCE PROVIDED. WILL APPLY POLAR CARE. DR GARCIA HAS BEEN AT BEDSIDE SEVERAL TIMES TO EVALUATE.
--- NOTE | 2024-01-02 17:10 | PCM.PN.HOSP ---
Reason for Visit Reason for Visit: Diagnoses Encounter for other preprocedural examination (01/02/24) Subjective Subjective Patient recent post OR with transition just now from PACU to [facility] 3. He notes currently pain in the lumbar spine at the surgical site rated 7 out of 10 in severity and more dull aching, sharp with more activity. He denies any radicular pain down either way. He denies any paresthesias or numbness to his extremities. He is able to move both lower extremities. Patient denies fevers, chills, nausea, emesis, abdominal pain, chest pain or dyspnea. Objective Data Objective Data Vital Signs: Vital Signs Temp Pulse Resp BP Pulse Ox O2 Del Method O2 Flow Rate 97.6 F L 78 16 130/83 H 98 Nasal Cannula 4 01/02/24 16:44 01/02/24 17:00 01/02/24 17:00 01/02/24 17:00 01/02/24 17:00 01/02/24 17:00 01/02/24 17:00 Oxygen Flow Rate (L/min) 4 Oxygen Delivery Method Nasal Cannula Weight: 233 lb 11.04 oz Body Mass Index (BMI) 35.5 Intake & Output: Intake and Output for Last 24 Hours 12/31/23 01/01/24 01/02/24 23:59 23:59 23:59 Intake Total 212 / 212 Output Total 445 / 445 Balance -233 / -233 Lab / Micro Data Labs: Laboratory Results - last 24 hr 01/02/24 09:23: INR 1.0 01/02/24 10:30: POC Glucose 104 Micro: Microbiology 12/21/23 08:43 Swab (Method) Nasal Screen MRSA/MSSA - Final Radiography Diagnostic Testing: Radiology Impression Lumbar Spine X-Ray 01/02/24 11:30 IMPRESSION: 1. Intraoperative fluoroscopic a digital radiographs following progression and interventional subluxation of disc implant containing radiopaque markers inside the L4-L5 disc space and left placement of metallic rods and pedicular screws at the L4-L5 disc space level. 2. Total fluoroscopy time: 130 seconds. 3. Total radiation dose of 59.21 mGy. Electronically Signed: Juice Godoy MD at 14:51 EDT , Physical Exam Narrative Physical Examination: General: Awake, alert, oriented x 3 and cooperative, laying in the MS bed, fatigued, notes pain 7 out of 10 to the lumbar spine. Skin: Normal color, normal turgor, no icterus, no cyanosis except for recent OR with dressing in place lumbar spine with no drainage. HEENT: AT/NC, EOMI, PERRLA, mildly dry MM, no carotid bruits or JVD noted; however thickened neck makes evaluation difficult. Lungs: Diminished breath sounds, greater bases, mildly increased respiratory rate but no distress, no rales, ronchi or wheezing. Heart: Regular rate and rhythm; no gallop, rub audible. Abdomen: Soft, obese, NTTP, ND, mildly hyperactive BS, no appreciated HSM. Extremities: No cyanosis, no clubbing, no marked peripheral edema, sensation lower extremities intact, peripheral pulses intact. Neurological: Patient awake, alert, oriented as noted, cognitive function intact; pupils equally reactive to light and accommodation, cranial nerves grossly normal, moving all 4 extremities although limited given recent lumbar surgery, no focal deficits, strength moderately to severely global decreased given recent intervention. Psychiatric: Affect appears fatigued otherwise normal, no acute evidence of depressive or anxiety feelings but does have underlying history. Assessment & Plan Assessment/Plan (1) Spinal stenosis at L4-L5 level: PLAN: Plan The patient is a 68 y/o M w/ PMHx: Obesity, HTN, HLD, Hx Lymphoma, Anxiety and Depression, OA, PAF, Hx renal artery stenosis s/p stent placement, Chronic lumbar back pain with bilateral lower extremity radiation with significant difficulty with ambulation who presents to the [facility] on 01/02/24 for planned anterior and posterior fusion L4-5 DOS. #1. Severe debilitating lumbar back pain with bilateral lower extremity radiation, radiculopathy, debility: Failed conservative therapies and treatments, admitted per Dr. Combs, s/p anterior and posterior fusion L4-5 DOS, post-operative pain management, bowel regimen, DVT Prophylaxis, PT/OT/CM per Orthopedic surgery discretion. #2. Hypertension: Continue home regimen including metoprolol, lisinopril, amlodipine, PRN hydralazine. #3. Hyperlipidemia: Per current list not on statin therapy, encourage continued outpatient follow-up with PCP. #4. Anxiety and depression: We will continue patient low-dose twice daily as needed lorazepam for anxiety. May benefit from consideration of SSRI if ongoing severe debilitating symptoms and frequent usage of lorazepam. Encouraged outpatient follow-up with his PCP/counseling as previously arranged. #5. PAF: We will continue patient on metoprolol regimen, encourage resumption of warfarin once cleared by orthopedic surgery given recent surgical intervention as noted above. #6. History lymphoma: Unclear specific history, noted to be in remission, status post chemotherapy [id number], encourage continued follow-up outpatient as previously arranged. #7. History of renal artery stenosis: Per records status post PCI, once cleared per surgery recommend reinitiation of warfarin therapy, not on statin therapy, continue hypertensive regimen. #8. Obesity: Weight loss and lifestyle changes encouraged. #9. DVT prophylaxis: SCDs, restart Coumadin once cleared by surgery. Charges/Coding Visit Charges Inpatient E&M: 64641 Subs Hosp L3
[2024-01-02] MEDS: Methocarbamol 500 MG Tablet 1000 MG PO ×2 (18:14→21:25)
[2024-01-02] MEDS: Morphine 2 MG/ML Syringe IV (18:49)
[2024-01-02] MEDS: Metoprolol(XL)Succ 50 MG Tablet PO (21:24)
[2024-01-02] MEDS: Lisinopril 40 MG Tablet PO (21:24)
[2024-01-02] MEDS: oxyCODONE 5 MG Tablet PO (21:24)
[2024-01-02] MEDS: amLODIPine 5 MG Tablet PO (21:24)
[2024-01-02] MEDS: Senna/Docusate Sodium 1 Tablet 2 TABLET PO (21:25)
[2024-01-03] MEDS: oxyCODONE 5 MG Tablet PO ×3 (02:48→14:37)
[2024-01-03] MEDS: Cefazolin 2 GM in 0.9% Normal Saline (100mL Bag) 100 ML IV (02:58)
[2024-01-03 03:06] VITALS: BP 135/81; PULSE 74; RESP 18; TEMP 36.6; O2SAT 97
[2024-01-03] MEDS: Acetaminophen 500 MG Tablet 1000 MG PO ×2 (05:25→14:25)
[2024-01-03 07:56] LABS: Hematocrit 42.4 % (40-54); Hemoglobin 13.8 g/dL (13.0-16.5); Mean Corp Hgb Conc 32.5 g/dL (32-36); Mean Corpuscular Hgb 29.3 pg (27.0-32.0); Platelet Count 209 K/mm3 (150-450); RBC Distribution Width SD 46.2 fl (35.1-43.9); Red Blood Count 4.71 M/mm3 (4.6-6.2); White Blood Count 12.4 K/mm3 (4.4-11.0)
--- NOTE | 2024-01-03 08:33 | PCM.PN.HOSP ---
Reason for Visit Reason for Visit: Diagnoses Spinal stenosis, lumbar region without neurogenic claudication (01/02/24) Encounter for other preprocedural examination (01/02/24) Objective Data Objective Data Vital Signs: Vital Signs Temp Pulse Resp BP Pulse Ox O2 Del Method O2 Flow Rate 97.8 F 74 18 135/81 H 97 Room Air 2 01/03/24 03:06 01/03/24 03:06 01/03/24 03:06 01/03/24 03:06 01/03/24 03:06 01/03/24 03:06 01/02/24 18:03 Oxygen Flow Rate (L/min) 2 Oxygen Delivery Method Room Air Weight: 233 lb 11.04 oz Body Mass Index (BMI) 35.5 Intake & Output: Intake and Output for Last 24 Hours 01/01/24 01/02/24 01/03/24 23:59 23:59 23:59 Intake Total 322 / 322 389.25 / 389.25 Output Total 645 / 645 600 / 600 Balance -323 / -323 -210.75 / -210.75 Lab / Micro Data 01/03/24 07:28 01/03/24 07:28 Labs: Laboratory Results - last 24 hr 01/02/24 09:23: INR 1.0 01/02/24 10:30: POC Glucose 104 01/03/24 07:28: WBC 12.4 H, RBC 4.71, Hgb 13.8, Hct 42.4, MCV 90.0, MCH 29.3, MCHC 32.5, RDW Std Deviation 46.2 H, RDW Coeff of Jerry 14.0, Plt Count 209, MPV 11.0 Micro: Microbiology 12/21/23 08:43 Swab (Method) Nasal Screen MRSA/MSSA - Final Radiography Diagnostic Testing: Radiology Impression Lumbar Spine X-Ray 01/02/24 11:30 IMPRESSION: 1. Intraoperative fluoroscopic a digital radiographs following progression and interventional subluxation of disc implant containing radiopaque markers inside the L4-L5 disc space and left placement of metallic rods and pedicular screws at the L4-L5 disc space level. 2. Total fluoroscopy time: 130 seconds. 3. Total radiation dose of 59.21 mGy. Electronically Signed: Juice Godoy MD at 14:51 EDT , Physical Exam Narrative Seen and examined. Patient has mild postop pain around lumbar area. Has not passed flatus or bowel movement after surgery. Had anterior and posterior approach for lumbar laminectomy surgery. Physical exam General: Alert, Oriented x3, Cooperative HEENT: Atraumatic, PERRLA, EOMI, Normocephalic Oral: No Gingival or Mucosal Lesions/ Ulcerations Neck: Supple, No JVD, Negative Carotid Bruits Chest wall/Lungs: Air entry diminished in bilateral lung bases. No crepitation/rhonchi Cardiovascular: Regular rate, Regular Rhythm, Normal S1, Normal S2, No M/G/R Abdomen: Bowel Sounds Present, Soft, Non Tender, Non-Distended : No dysuria. No renal angle tenderness. No suprapubic tenderness. Extremities: No edema, Capillary Refill Less than 3 Seconds Skin: No rashes, No breakdown Musculoskeletal: No Tenderness to Palpation of Joints or Extremities Neurological: Cranial nerves II-XII grossly intact, DTR 2+/4. No acute focal neurological deficit. Psych/Mental Status: Normal Affect, Appropriate. Assessment & Plan Assessment/Plan (1) Spinal stenosis at L4-L5 level: PLAN: Plan The patient is a 68 y/o male admitted elective surgery for chronic lumbar back pain with bilateral lower extremity radiation with significant difficulty with ambulation. He had anterior and posterior fusion L4-5 DOS. #1. Severe debilitating lumbar back pain with bilateral lower extremity radiation, radiculopathy, debility: Failed conservative therapies and treatments, admitted per Dr. Combs, s/p anterior and posterior fusion L4-5 DOS, post-operative pain management, MiraLAX and senna S bowel regimen, DVT Prophylaxis, PT/OT/CM per Orthopedic surgery discretion. #2. Hypertension: Continue home regimen including metoprolol, lisinopril, amlodipine, PRN hydralazine. 01/02: Blood pressure and heart rate controlled. Vitals in normal range. #3. Hyperlipidemia: Per current list not on statin therapy, encourage continued outpatient follow-up with PCP. #4. Anxiety and depression: We will continue patient low-dose twice daily as needed lorazepam for anxiety. May benefit from consideration of SSRI if ongoing severe debilitating symptoms and frequent usage of lorazepam. Encouraged outpatient follow-up with his PCP/counseling as previously arranged. #5. PAF: continue patient on metoprolol regimen, encourage resumption of warfarin once cleared by orthopedic surgery given recent surgical intervention as noted above. #6. History lymphoma: Unclear specific history, noted to be in remission, status post chemotherapy [id number], encourage continued follow-up outpatient as previously arranged. #7. History of renal artery stenosis: Per records status post PCI, once cleared per surgery recommend reinitiation of warfarin therapy, not on statin therapy, continue hypertensive regimen. #8. Obesity: Weight loss and lifestyle changes encouraged. #9. CKD stage IIIa: Patient baseline creatinine runs around 1.3 to 1.40 since June 2019. 1.37 today. DVT prophylaxis: SCDs, restart Coumadin once cleared by surgery. Charges/Coding Visit Charges Inpatient E&M: 48058 Subs Hosp L2
--- NOTE | 2024-01-03 08:35 | RAD_ITS ---
INDICATION: s/p fusion -- pls do Upright AP, Lat EXAMINATION/TECHNIQUE: X-RAY - XR Spine Lumbar 2 or 3 Views COMPARISON: November 23, 2023 FINDINGS: There is evidence of prior posterior fusion of L4-L5 with bilateral pedicle screws, posterior spinal rods and disc spacer. The alignment is anatomic. There is multilevel endplate spondylosis. There are peripheral calcifications of the abdominal aorta. RAD/Lumbar Spine 2 or 3 Views IMPRESSION: Status post posterior fusion of L4-L5, grossly anatomic in alignment. Electronically Signed: Olivia Johnson MD at 10:56 EDT ,
[2024-01-03 08:40] LABS: Anion Gap 4 (5-15); BUN 16 mg/dL (7-18); BUN/Creat Ratio 11.7 RATIO (10-20); Calcium,Total 8.8 mg/dL (8.5-10.1); Chloride 101 mmol/L (98-107); Creatinine, Serum 1.37 mg/dL (0.70-1.30); EST Glomerular Filtration Rate 55 mL/min (>60); Est Glom Filt Rate - Afr Amer 66 mL/min (>60); Estimated Creatinine Clearance 60.06 ml/min; Glucose 114 mg/dL (74-106); Potassium 4.1 mmol/L (3.5-5.1); Sodium Level 135 mmol/L (136-145)
[2024-01-03 09:06] VITALS: BP 110/63; PULSE 70; RESP 18; TEMP 36.8; O2SAT 93
[2024-01-03] MEDS: Senna/Docusate Sodium 1 Tablet 2 TABLET PO (10:28)
[2024-01-03] MEDS: Methocarbamol 500 MG Tablet 1000 MG PO ×3 (10:28→17:25)
[2024-01-03] MEDS: Bisacodyl 5 MG Tablet PO (10:28)
--- NOTE | 2024-01-03 10:37 | CASEMGMT ---
DELORES SARGENT Assessment: Face to Face with pt for initial transition planning/care coordination assessment. RN ARIE introduced self and role at [facility], pt voices understanding and consents to assessment. Pt sitting up in chair in no distress. Pt girlfriend sitting in room with him. Pt is A&O x4 and answers all questions appropriately at this time. Care providers, pharmacy, and demographics verified/updated. Admitting Dx: Anterior and posterior fusion L4-5 PCP: Annemarie Specialists: Lefty, Ortho; Moreno, Oncology; Catalino, retort furnace helper; Sena Preferred Pharmacy: [facility] Insurance: Medicare, [employer] Prescription Benefit: yes LNOK: Xi Blackwell - friend Living Arrangements: Pt lives alone, but will be going to girlfriends house upon DC to a 1 story home with ramp to enter. Pt states I with ADLs and IADLs. Transportation: Pt drives self and denies concerns with transportation. Pt stated girlfriend able to drive him until able to drive self. DME: walker, rollator, cane, wheelchair, shower chair, comfort height commode, grab bars, molder operator, show horn, sock slide, up down bed. HHC/SNF: Denies Hx of. Pt states no concerns with going home at time of dc. Pt states no further concerns/needs. CM to follow. Advised pt to ask CM if any further question/concerns/needs arise, voices understanding. Pt Goal: Home Plan: Home no needs Dominga ESTRELLA CM
--- NOTE | 2024-01-03 11:41 | PCM.PN.ORT ---
Subjective Subjective Postop day 1 status post L4-5 fusion. Sitting in a chair with a walker in front. Feels tightness in the back. No flatus yet. Was able to walk good amount of distance with the physical therapy. Objective Data Objective Data Vital Signs: Vital Signs Temp Pulse Resp BP Pulse Ox O2 Del Method O2 Flow Rate 98.2 F 70 18 110/63 93 Room Air 2 01/03/24 09:06 01/03/24 09:06 01/03/24 09:06 01/03/24 09:06 01/03/24 09:06 01/03/24 09:06 01/02/24 18:03 Oxygen Flow Rate (L/min) 2 Oxygen Delivery Method Room Air Weight: 233 lb 11.04 oz Body Mass Index (BMI) 35.5 Intake & Output: Intake and Output for Last 24 Hours 01/01/24 01/02/24 01/03/24 23:59 23:59 23:59 Intake Total 322 / 322 389.25 / 389.25 Output Total 645 / 645 600 / 600 Balance -323 / -323 -210.75 / -210.75 Lab / Micro Data 01/03/24 07:28 01/03/24 07:28 Labs: Laboratory Results - last 24 hr 01/03/24 07:28: WBC 12.4 H, RBC 4.71, Hgb 13.8, Hct 42.4, MCV 90.0, MCH 29.3, MCHC 32.5, RDW Std Deviation 46.2 H, RDW Coeff of Jerry 14.0, Plt Count 209, MPV 11.0, Sodium 135 L, Potassium 4.1, Chloride 101, Carbon Dioxide 30.0, Anion Gap 4 L, BUN 16, Creatinine 1.37 H, Estim Creat Clear Calc 60.06, Est GFR (MDRD) Af Amer 66, Est GFR (MDRD) Non-Af 55 L, BUN/Creatinine Ratio 11.7, Glucose 114 H, Calcium 8.8 Micro: Microbiology 12/21/23 08:43 Swab (Method) Nasal Screen MRSA/MSSA - Final Radiography Diagnostic Testing: Radiology Impression Lumbar Spine X-Ray 01/02/24 11:30 IMPRESSION: 1. Intraoperative fluoroscopic a digital radiographs following progression and interventional subluxation of disc implant containing radiopaque markers inside the L4-L5 disc space and left placement of metallic rods and pedicular screws at the L4-L5 disc space level. 2. Total fluoroscopy time: 130 seconds. 3. Total radiation dose of 59.21 mGy. Electronically Signed: Juice Godoy MD at 14:51 EDT , Lumbar Spine X-Ray 01/03/24 08:35 IMPRESSION: Status post posterior fusion of L4-L5, grossly anatomic in alignment. Electronically Signed: Olivia Johnson MD at 10:56 EDT , Physical Exam Narrative Dressing?CDI. Neurologic evaluation of lower extremity shows 5 x 5 power normal shows normal sensations in all dermatomes. Assessment & Plan Assessment/Plan (1) Status post lumbar spinal fusion: PLAN: Plan Postop day 1 status post L4-5 fusion. X-rays reviewed, look good. PT OT mobilization, walk good distance today. Clear liquid diet until passes flatus. Discharge pending flatus and tolerating solid meal. Will follow-up in clinic in 2 weeks.
[2024-01-03] MEDS: Ensure Surgery 237 ML LIQUID PO (12:20)
[2024-01-03 13:35] VITALS: BP 108/65; PULSE 69; RESP 18; TEMP 36.6; O2SAT 94
[2024-01-03] MEDS: Polyethylene Glycol 3350 17 GM PACKET PO (14:27)
[2024-01-03 17:30] VITALS: BP 121/70; PULSE 78; RESP 18; TEMP 36.6; O2SAT 95
[2024-01-04 15:30] LABS: Prothrombin Time Fingerstick 11.7 SEC (11.7-14.9)
== END 2024-01-03 18:12 | disposition home or self-care (01) | DRG 455 ==
LOC: ACINP 09:20 → MS3 16:49
PROVIDERS: Anesthesiology; Admitting Provider Orthopaedic Surgery Orthopaedic Surgery of the Spine; PCP Family Medicine; Referring Provider Orthopaedic Surgery Orthopaedic Surgery of the Spine; Visit Provider Orthopaedic Surgery Orthopaedic Surgery of the Spine
PROC: 0SG00A0 Fusion of Lumbar Vertebral Joint with Interbody Fusion Device, Anterior Approach, Anterior Column, Open Approach (ICD-10-PCS; principal; 2024-01-02 10:45)
DX: M43.16 Spondylolisthesis, lumbar region (principal); E66.9 Obesity, unspecified; N18.31 Chronic kidney disease, stage 3a; I48.0 Paroxysmal atrial fibrillation; I12.9 Hypertensive chronic kidney disease with stage 1 through stage 4 chronic kidney disease, or unspecified chronic kidney disease; F32.A Depression, unspecified; I70.1 Atherosclerosis of renal artery; M48.062 Spinal stenosis, lumbar region with neurogenic claudication; E78.5 Hyperlipidemia, unspecified; F41.9 Anxiety disorder, unspecified; M51.36 Other intervertebral disc degeneration, lumbar region; M71.38 Other bursal cyst, other site; Z68.35 Body mass index [BMI] 35.0-35.9, adult; Z96.0 Presence of urogenital implants; Z79.01 Long term (current) use of anticoagulants; Z79.899 Other long term (current) drug therapy; Z85.72 Personal history of non-Hodgkin lymphomas
CPT/HCPCS: 36415; 36416; 72100; 72148; 76000; 80048; 82962; 83735; 85027; 85610; 86703; 86706; 86708; 86803; 86850; 86900; 86901; 87081; 93005; 94668; 97161; 97166; C1713; J7120; J2405; J3475

== ENCOUNTER 2024-01-21 09:42 | Outpatient (RCR) | payer MEDICARE, OTHER, SELFPAY ==
[2023-12-18 22:32] VITALS: BMI 36.5
[2024-01-21 09:55] LABS: INR Fingerstick 2.3; Prothrombin Time Fingerstick 24.2 SEC (11.7-14.9)
== END 2024-01-21 18:00 | disposition home or self-care (01) ==
LOC: MTLAB 09:42
PROVIDERS: Family Provider Family Medicine; PCP Family Medicine; Referring Provider Internal Medicine Cardiovascular Disease; Visit Provider Internal Medicine Cardiovascular Disease
DX: I48.19 Other persistent atrial fibrillation (principal); Z79.01 Long term (current) use of anticoagulants
CPT/HCPCS: 36416; 85610

== ENCOUNTER 2024-03-07 14:00 | Outpatient (RCR) | payer MEDICARE, OTHER, SELFPAY | END 2024-03-07 19:00 | disposition home or self-care (01) | LOC: PT 14:00 | PROVIDERS: PCP Family Medicine; Referring Provider Orthopaedic Surgery Orthopaedic Surgery of the Spine; Visit Provider Orthopaedic Surgery Orthopaedic Surgery of the Spine | DX: Z98.1 Arthrodesis status (principal) | CPT/HCPCS: 97110; 97162; 97530 ==

== ENCOUNTER → 2024-03-10 | Outpatient (CLI) | payer MEDICARE, OTHER, SELFPAY ==
--- NOTE | 2024-03-10 14:52 | RAD_ITS ---
INDICATION: Hip pain. EXAMINATION/TECHNIQUE: X-RAY - XR Hips Bilateral with Pelvis when performed; Min 5 Views COMPARISON: No relevant prior comparison study available FINDINGS: PELVIC BONES: No displaced fracture, destructive or sclerotic lesions. Note that overlapping bowel shadows may however obscure fine detail. Sacroiliac joints are unremarkable. No widening of the pubic symphysis. There is bilateral fusion hardware at L4-5. HIPS: There is severe degenerative arthrosis of the hip joints bilaterally with [id number], marginal osteophyte formation, and subchondral sclerosis/cyst formation. No displaced fracture seen. SOFT TISSUES: No soft tissue swelling or gas. RAD/Hips B/L min 2 views w/ Pelvis IMPRESSION: Severe degenerative arthrosis of the hip joints bilaterally. No evidence of displaced pelvic or hip fracture. Electronically Signed: Noe Church MD at 16:02 EDT ,
== END | disposition home or self-care (01) ==
PROVIDERS: PCP Family Medicine; Referring Provider Family Medicine; Visit Provider Family Medicine
DX: M25.559 Pain in unspecified hip (principal)
CPT/HCPCS: 73521

== ENCOUNTER 2024-03-17 11:03 | Outpatient (RCR) | payer MEDICARE, OTHER, SELFPAY ==
[2024-02-18 04:38] VITALS: BMI 36.5
[2024-02-18 15:02] LABS: INR Fingerstick 3.1; Prothrombin Time Fingerstick 30.9 SEC (11.7-14.9)
[2024-03-17 11:09] LABS: INR Fingerstick 3.9; Prothrombin Time Fingerstick 37.6 SEC (11.7-14.9)
== END 2024-03-19 18:00 | disposition home or self-care (01) ==
LOC: MTLAB 11:03
PROVIDERS: Family Provider Family Medicine; PCP Family Medicine; Referring Provider Internal Medicine Cardiovascular Disease; Visit Provider Internal Medicine Cardiovascular Disease
DX: I48.19 Other persistent atrial fibrillation (principal); Z79.01 Long term (current) use of anticoagulants
CPT/HCPCS: 36416; 85610

== ENCOUNTER 2024-06-03 08:41 | Outpatient (RCR) | payer MEDICARE, OTHER, SELFPAY ==
[2024-03-19 23:34] VITALS: BMI 36.5
[2024-05-20 13:01] LABS: INR Fingerstick 3.2; Prothrombin Time Fingerstick 32.1 SEC (11.7-14.9)
[2024-06-03 08:48] LABS: INR Fingerstick 1.9; Prothrombin Time Fingerstick 20.5 SEC (11.7-14.9)
== END 2024-06-03 18:00 | disposition home or self-care (01) ==
LOC: MTLAB 08:41
PROVIDERS: Family Provider Family Medicine; PCP Family Medicine; Referring Provider Internal Medicine Cardiovascular Disease; Visit Provider Internal Medicine Cardiovascular Disease
DX: I48.19 Other persistent atrial fibrillation (principal); Z79.01 Long term (current) use of anticoagulants
CPT/HCPCS: 36416; 85610

== ENCOUNTER 2024-08-11 13:48 | Outpatient (RCR) | payer MEDICARE, OTHER, SELFPAY ==
[2024-06-19 21:06] VITALS: BMI 36.5
[2024-07-21 16:04] LABS: INR Fingerstick 3.1; Prothrombin Time Fingerstick 32.5 SEC (11.7-14.9)
[2024-08-11 14:12] LABS: INR Fingerstick 1.9; Prothrombin Time Fingerstick 21.3 SEC (11.7-14.9)
== END 2024-08-11 18:00 | disposition home or self-care (01) ==
LOC: MTLAB 13:48
PROVIDERS: Family Provider Family Medicine; PCP Family Medicine; Referring Provider Internal Medicine Cardiovascular Disease; Visit Provider Internal Medicine Cardiovascular Disease
DX: I48.19 Other persistent atrial fibrillation (principal); Z79.01 Long term (current) use of anticoagulants
CPT/HCPCS: 36416; 85610

== ENCOUNTER 2024-10-17 14:21 | Outpatient (RCR) | payer MEDICARE, OTHER, SELFPAY ==
[2024-08-20 05:24] VITALS: BMI 36.5
[2024-10-17 14:29] LABS: INR Fingerstick 1.9; Prothrombin Time Fingerstick 21.2 SEC (11.7-14.9)
== END 2024-10-17 18:00 | disposition home or self-care (01) ==
LOC: MTLAB 14:21
PROVIDERS: Family Provider Family Medicine; PCP Family Medicine; Referring Provider Internal Medicine Cardiovascular Disease; Visit Provider Internal Medicine Cardiovascular Disease
DX: I48.19 Other persistent atrial fibrillation (principal); Z79.01 Long term (current) use of anticoagulants
CPT/HCPCS: 36416; 85610

== ENCOUNTER 2024-11-10 10:44 | Outpatient (RCR) | payer MEDICARE, OTHER, SELFPAY ==
[2024-10-18 08:19] VITALS: BMI 36.5
[2024-11-10 11:11] LABS: INR Fingerstick 2.8; Prothrombin Time Fingerstick 29.1 SEC (11.7-14.9)
== END 2024-11-10 18:00 | disposition home or self-care (01) ==
LOC: MTLAB 10:44
PROVIDERS: Family Provider Family Medicine; PCP Family Medicine; Referring Provider Internal Medicine Cardiovascular Disease; Visit Provider Internal Medicine Cardiovascular Disease
DX: I48.19 Other persistent atrial fibrillation (principal); Z79.01 Long term (current) use of anticoagulants
CPT/HCPCS: 36416; 85610

== ENCOUNTER 2025-01-16 15:00 | Outpatient (RCR) | payer MEDICARE, OTHER, SELFPAY ==
[2024-11-17 23:35] VITALS: BMI 36.5
[2025-01-16 15:36] LABS: International Normalized Ratio 2.9; Prothrombin Time (Protime)PT. 31.3 SECONDS (11.7-14.9)
[2025-01-16 16:52] LABS: AST(SGOT) 19 U/L (<=37); Alanine Aminotransfer ALT/SGPT 12 U/L (<=46); Albumin, Serum 4.5 g/dL (3.4-4.8); Alkaline Phosphatase 90 U/L (40-129); Bilirubin, Direct 0.19 mg/dL (0.00-0.30); Cholesterol 192 mg/dL (<=200); Globulin 2.2 g/dL (2.2-4.2); High Density Lipoprotein 32 mg/dL; Low Density Lipoprotein Calc. 101 mg/dL; Protein, Total 6.6 g/dL (5.9-8.4); Triglycerides 296 mg/dL; Very Low Density Lipoprotein 59 mg/dL (5-40); cholesterol:hdl ratio screen 6.04
== END 2025-01-16 18:00 | disposition home or self-care (01) ==
LOC: LAB 15:00
PROVIDERS: Family Provider Family Medicine; PCP Family Medicine; Referring Provider Physician Assistant Medical; Visit Provider Internal Medicine Cardiovascular Disease
DX: E78.5 Hyperlipidemia, unspecified (principal); Z79.01 Long term (current) use of anticoagulants
CPT/HCPCS: 36415; 80061; 80076; 85610

== ENCOUNTER 2025-02-13 09:32 | Outpatient (RCR) | payer MEDICARE, OTHER, SELFPAY ==
[2025-01-18 18:53] VITALS: BMI 36.5
[2025-02-13 13:22] LABS: Anion Gap 14 (5-15); BUN 17 mg/dL (4-19); BUN/Creat Ratio 13.4 RATIO (10-20); Calcium,Total 9.4 mg/dL (7.6-11.0); Carbon Dioxide 23.5 mmol/L (21.0-32.0); Chloride 102 mmol/L (98-108); Creatinine, Serum 1.27 mg/dL (0.70-1.20); EST Glomerular Filtration Rate 61 (>60); Glucose 99 mg/dL (70-99); PSA,Total- Diagnostic 1.41 ng/mL (0.00-4.00); Potassium 3.8 mmol/L (3.3-5.1); Sodium Level 140 mmol/L (133-145)
[2025-02-13 16:27] LABS: International Normalized Ratio 2.3; Prothrombin Time (Protime)PT. 25.7 SECONDS (11.7-14.9)
== END 2025-02-13 18:00 | disposition home or self-care (01) ==
LOC: MTLAB 09:32
PROVIDERS: Family Provider Family Medicine; PCP Family Medicine; Referring Provider Internal Medicine Cardiovascular Disease; Visit Provider Internal Medicine Cardiovascular Disease
DX: I48.19 Other persistent atrial fibrillation (principal); Z79.01 Long term (current) use of anticoagulants; Z00.00 Encounter for general adult medical examination without abnormal findings
CPT/HCPCS: 80048; 84153; 85610

== ENCOUNTER 2025-03-13 15:50 | Outpatient (RCR) | payer MEDICARE, OTHER, SELFPAY ==
[2025-03-13 16:08] LABS: INR Fingerstick 2.2
== END 2025-03-19 18:00 | disposition home or self-care (01) ==
LOC: MTLAB 15:50
PROVIDERS: Family Provider Family Medicine; PCP Family Medicine; Referring Provider Internal Medicine Cardiovascular Disease; Visit Provider Internal Medicine Cardiovascular Disease
DX: I48.19 Other persistent atrial fibrillation (principal); Z79.01 Long term (current) use of anticoagulants
CPT/HCPCS: 36416; 85610

== ENCOUNTER 2025-03-31 14:00 | Outpatient (RCR) | payer MEDICARE, OTHER, SELFPAY ==
--- NOTE | 2025-03-04 17:40 | HP.PTEVAL_ITS ---
Patient's Visit Information Visit Information Visit Information: SIRISHA DE LEON is a 69 year old M referred to Physical Therapy by Dr. Norm Nj MD with a diagnosis of Bilateral hip pain with primary osteoarthritis. Date of Evaluation: 03/04/25 Physical Therapist: Herve Cloud PT, Cert MDT, OCS Visit Plan Frequency: 2x /Week Duration: 4 Weeks Plan: PHYSICAL THERAPY INTERVENTIONS AQUATIC THERAPY FOR ROM HIP ,FLEXABILITY ,STRENGTHENING EX'S QUADS/HAMS/HIP AND FUNCTIONAL STRENGTHENING Subjective Subjective: A 69 year old male present with bilateral hip stiffness that is located in lateral hip and low back. Pt talked to on Sunday to do pre- surgical therapy to prepare and hopeful have better outcomes if pt decides on surgery. Pt has been having bilateral hip pain and stiffness since 2019 after he quit working full-time and with issue with back. Pt had surgery on low back in December of 2023 and that helped a little with right sided hip pain, but ultimately pain has gotten worse and did not resolve on tehright of left after some time. Pt pain is described as stiffness, is worse later in the day and is aggravated by with squatting, bending, standing, walking, and going up stairs. Pt uses a power lift chair at home and uses one foot at a time to climb 4 stairs to get into the home with a handrail on both sides. Pt pain is better with sitting and laying down. Pt denies numbness/tingling or issue with bowel/bladder at this time. Pt does not currently have any follow-up scheduled at this time. 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 Hobbies: take care grandkids with no kids Pain Bilateral Hip: Pain Intensity (Out of 10): 6 Pain Intensity Range: 4 and 8 Objective Objective: Posture: forward head posture with rounded shoulders PALPATION: unremarkable GAIT: reciprocal pattern decrease stance time mild forward posture Hip ROM: Severely limited grossly in all directions (Flexion, IR/ER) Flexion on left ~ 85 degrees ; right ~80 degrees,IR -5 degrees,ER 5 Degrees FLEXABILITY: hamstrings mod tight tight ,hip flexors mod tight LE MMT: Grossly 4/5 except right hip flexor (peak force) 29.6 ; left 33.9,hip abd right 23.1 ,left 22.8 Balance/Special Test Scores Lower Extremity Functional Score: 27 Goals Goal 1:: Patient to decrease pain and stiffness below a rate of 4 on most days to improve quality of life and participation in functional activities. Goal Time Frame: 4-6 Weeks Goal 2:: Patient to increase bilateral hip ROM from severe limitation to moderate by 5-10 degrees to improve ability to participate in activities at home. Goal Time Frame: 4-6 Weeks Goal 3:: Patient to increase bilateral hip strength by ~5lbs peak force to improve with functional activities at home. Goal Time Frame: 4-6 Weeks Goal 4:: Patient to improve Lower Extremity Functional Score to 50% or less to improve quality of life, decrease pain, and improve ability to participate in activities at home. Goal Time Frame: 4-6 Weeks Rehabilitation Potential Physical Therapy Diagnosis: Patient presents with grossly severely limited hip ROM and decreased hip strength causing pain due to DJD thus is candidate for TANJA thus benefit from skilled PT Rehabilitation Potential: Good Anticipated Interventions Patient/Client Instruction: Educate patient on: Condition, Plan of Care and Benefits of Fitness Program For the Purpose of:: To decrease pain, To increase ROM, To improve muscle performance and motor function, To improve ability to perform ADL's, To increase tolerance to activity/condition/position, To improve ability of physical actions for home/community/work/leisure, To decrease soft tissue restriction, To increase flexibility/ROM, To improve endurance, To foster healthy habits, To improve decision making, To improve self management, To prevent re-injury, To improve ability to perform tasks related to life management and To improve tolerance to ADL's Therapeutic Exercise to Include: Strength training and In an aquatic setting For the Purpose of:: To decrease pain, To increase ROM, To improve muscle performance and motor function, To improve ability to perform ADL's, To increase tolerance to activity/condition/position, To improve safety, To improve health and function, To prevent re-injury, To improve ability to perform tasks related to life management and To improve tolerance to ADL's Text: Thank you for the opportunity to evaluate your patient. For Medicare and Medicare HMO plans, please review the plan of care and approve it. It will need to be FAXED BACK to us at [phone] for Medicare purposes. For Medicare only, by signing this I certify the plan of care. Please let me know if there are questions or concerns regarding this plan of care. Physician Signature: Date:
--- NOTE | 2025-03-31 14:25 | HP.PTREVAL_ITS ---
Re-Evaluation Intro: Dr. Norm Nj MD, It has been my pleasure to treat SIRISHA DE LEON over the last 9 visits for Bilateral hip pain with primary osteoarthritis. Please see the progress note below for an update on the physical therapy plan of care! Subjective Subjective: [place] temporarily felt looser Objective Objective/Function: Posture: forward head posture with rounded shoulders PALPATION: unremarkable GAIT: reciprocal pattern decrease stance time mild forward posture Hip ROM: Severely limited grossly in all directions (Flexion, IR/ER) Flexion on left ~ 85 degrees ; right ~80 degrees,IR -5 degrees,ER 5 Degrees FLEXABILITY: hamstrings mod tight tight ,hip flexors mod tight LE MMT: Grossly 4/5 except right hip flexor (peak force) RIGHT 29.9; left 35.9,hip abd right 26.1 ,left 23.8 Plan Plan Plan: *IN water *LE STRENGTH *STS PHYSICAL THERAPY INTERVENTIONS AQUATIC THERAPY FOR ROM HIP ,FLEXABILITY ,STRENGTHENING EX'S QUADS/HAMS/HIP AND FUNCTIONAL STRENGTHENING Balance/Gait/Functional tests Balance/Special Test Scores Lower Extremity Functional Score: 31 Goals Goals Goal 1:: Patient to decrease pain and stiffness below a rate of 4 on most days to improve quality of life and participation in functional activities. Goal Time Frame: 4-6 Weeks Goal Progress: Progressing Goal 2:: Patient to increase bilateral hip ROM from severe limitation to moderate by 5-10 degrees to improve ability to participate in activities at home. Goal Time Frame: 4-6 Weeks Goal Progress: Progressing Goal 3:: Patient to increase bilateral hip strength by ~5lbs peak force to improve with functional activities at home. Goal Time Frame: 4-6 Weeks Goal Progress: Progressing Goal 4:: Patient to improve Lower Extremity Functional Score to 50% or less to improve quality of life, decrease pain, and improve ability to participate in activities at home. Goal Time Frame: 4-6 Weeks Goal Progress: Progressing Anticipated Interventions Anticipated Interventions Patient/Client Instruction: Educate patient on: Condition, Plan of Care and Benefits of Fitness Program For the Purpose of:: To decrease pain, To increase ROM, To improve muscle performance and motor function, To improve ability to perform ADL's, To increase tolerance to activity/condition/position, To improve ability of physical actions for home/community/work/leisure, To decrease soft tissue restriction, To increase flexibility/ROM, To improve endurance, To foster healthy habits, To improve decision making, To improve self management, To prevent re-injury, To improve ability to perform tasks related to life management and To improve tolerance to ADL's Therapeutic Exercise to Include: Strength training and In an aquatic setting For the Purpose of:: To decrease pain, To increase ROM, To improve muscle performance and motor function, To improve ability to perform ADL's, To increase tolerance to activity/condition/position, To improve safety, To improve health and function, To prevent re-injury, To improve ability to perform tasks related to life management and To improve tolerance to ADL's Re-Evaluation Ending Re-evaluation ending: Please do not hesitate to contact me at [phone] by phone or if you have questions or concerns regarding this new plan of care! Sincerely, Herve Cloud PT, Cert MDT, OCS
--- NOTE | 2025-04-09 11:25 | HP.PTDCSUM ---
Discharge Summary D/C summary: It has been my pleasure to treat SIRISHA DE LEON referred by Dr. Norm Nj MD, with the diagnosis of Bilateral hip pain with primary osteoarthritis for a total of 9 visit(s). Discharge Date: Please see the following information for a summary of their discharge status. Subjective Subjective: [place] temporarily felt looser Pain Bilateral Hip: Pain Intensity (Out of 10): 4 Overall Improvement % Improvement: 10 Objective Objective/Function: Posture: forward head posture with rounded shoulders PALPATION: unremarkable GAIT: reciprocal pattern decrease stance time mild forward posture Hip ROM: Severely limited grossly in all directions (Flexion, IR/ER) Flexion on left ~ 85 degrees ; right ~80 degrees,IR -5 degrees,ER 5 Degrees FLEXABILITY: hamstrings mod tight tight ,hip flexors mod tight LE MMT: Grossly 4/5 except right hip flexor (peak force) RIGHT 29.9; left 35.9,hip abd right 26.1 ,left 23.8 Goals Goal 1:: Patient to decrease pain and stiffness below a rate of 4 on most days to improve quality of life and participation in functional activities. Goal Progress: Progressing Goal 2:: Patient to increase bilateral hip ROM from severe limitation to moderate by 5-10 degrees to improve ability to participate in activities at home. Goal Progress: Progressing Goal 3:: Patient to increase bilateral hip strength by ~5lbs peak force to improve with functional activities at home. Goal Progress: Progressing Goal 4:: Patient to improve Lower Extremity Functional Score to 50% or less to improve quality of life, decrease pain, and improve ability to participate in activities at home. Goal Progress: Progressing Plan Plan: *IN water *LE STRENGTH *STS PHYSICAL THERAPY INTERVENTIONS AQUATIC THERAPY FOR ROM HIP ,FLEXABILITY ,STRENGTHENING EX'S QUADS/HAMS/HIP AND FUNCTIONAL STRENGTHENING D/C Information d/c sentence: If there are questions or concerns regarding this patient's physical therapy, please feel free to call me at [phone]. Thank you for the referral of this patient. Sincerely, Herve Cloud, PT, Cert MDT, OCS Balance/Gait/Functional tests Balance/Special Test Scores Lower Extremity Functional Score: 31 Improvement % Improvement: 10
== END 2025-03-31 19:00 | disposition home or self-care (01) ==
LOC: PT 14:00
PROVIDERS: PCP Family Medicine; Referring Provider Specialist; Visit Provider Specialist
DX: M16.0 Bilateral primary osteoarthritis of hip (principal); M25.551 Pain in right hip; M25.552 Pain in left hip
CPT/HCPCS: 97113; 97162; 97530

== ENCOUNTER → 2025-04-24 | Outpatient (CLI) | payer MEDICARE, OTHER, SELFPAY ==
--- NOTE | 2025-04-24 13:03 | CT_ITS ---
PROCEDURE: EXTREMITY LOWER WITHOUT CONTRA 04/24/2025 REASON FOR EXAM: CHRONIC HIP PAIN TECHNIQUE: Procedure Code: CTELWO Modality: CT Procedure: EXTREMITY LOWER WITHOUT CONTRA Coronal and Sagittal reconstruction series were provided. One or more dose reduction techniques were used (e.g., Automated exposure control, adjustment of the mA and/or kV according to patient size, use of iterative reconstruction technique. RADIATION DOSE SUMMARY: CTDlvol: 26 mGy DLP: 1051 mGycm COMPARISON: None relevant FINDINGS: Bone mineralization is preserved. The patient is status post lower lumbar fusion at L4 and L5. Multilevel facet arthropathy present at the lower lumbar spine level. Degenerative changes of both SI joints identified. There is no fracture through the pelvis. Degenerative changes are noted within both hips. There is no acute fracture or dislocation. No joint effusion seen. No loose body present. Superior and inferior pubic rami are normal. The symphysis pubis is intact. No sacral insufficiency fracture detected. There is no fracture or dislocation of the knee. Normal patellar tracking noted. Mild narrowing of the medial compartments of both knees present. Early degenerative changes of the patellofemoral compartment and lateral compartment of each knee. Evaluation of the soft tissues of the pelvis reveals no inguinal or pelvic lymphadenopathy or mass. Enlarged lymph nodes seen anterior to the aortic bifurcation likely reactive. The urinary bladder is decompressed. Prostate gland seminal vesicles are within normal limits. A small left hydrocele is noted. Vascular calcifications are noted. CT/Extremity Lower without Contra IMPRESSION: Severe osteoarthritic changes of both hips and SI joints. Mild degenerative changes of the medial compartment of each knee. No acute osseous abnormality. Reading Location: [id number]
== END | disposition home or self-care (01) ==
LOC: CT 13:03
PROVIDERS: PCP Family Medicine
DX: M16.11 Unilateral primary osteoarthritis, right hip (principal)
CPT/HCPCS: 73700

== ENCOUNTER 2025-05-18 07:02 | Observation (INO) | payer MEDICARE, OTHER, SELFPAY ==
--- OUTSIDE RECORDS SUMMARY | 2025-04-19 13:16 | XMS RPT_ITS ---
Author Name Auto Generated Organization OH[facility] Care Team Providers Care Soap Drier Tender Name Role Phone DASH ABBOTT Attending Unavailable BE LEE Primary Care Unavailable ROSA, BE Estrada Primary Care Unavailable ANALI MAR Attending Unavailable JULIA MCCARTY Attending Unavailable BE MAYER Referring Unavailable ROSA, BE Estrada Primary Care Unavailable ROSA, BE Estrada Primary Care Unavailable ROSA, BE Estrada Primary Care Unavailable ANJANA WOODRUFF Attending Unavailable DASH ABBOTT Referring Unavailable ROSA, BE Estrada Primary Care Unavailable PROBLEMS DATE TYPE CONDITION / CODE ATTENDING STATUS [facility] 04/19/2025 Active Viral illness / B34.9(ICD-10) ANALI MAR Active [facility] 03/16/2025 Active Pain / UNK(Unknown) DASH ABBOTT Act katiana [facility] 03/16/2025 Active Pain of left familia mb / M79.645(ICD-10) NA Active [facility] 01/06/2025 Active Acute bronchitis , unspecified organism / J20.9(ICD-10) ANJANA WOODRUFF Active [facility] 01/06/2025 Active Allergic rhiniti s due to pollen, unspecified seasonality / J30.1(ICD-10) ANJANA WOODRUFF Active [facility] 06/18/2012 Active 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 Author Type: Rotor Casting Machine Operator Type: Progress Notes Filed: 05/01/2025 11:09 Note Text: PT ASSESSMENT - CASTING ROOM Sirisha presents for Application of brace. Applied Large Comfort cool brace to Left hand. Patient electronically signed Vinicio BAILEY. Patient has been instructed in Care and proper application of brace. YAQUELIN Dunne Observed: 04/24/2025 12:00 AM Status: COMPLETED Source: [facility] Telephone ([employer]) MOISESSIRISHA Jayleen ([id number]) 1955 M Date Time Provider Department 04/24/25 DASH ABBOTT During your visit today, we recorded the following information about you: Yoko Zheng LPN 04/24/2025 4:37 PM Signed jay jay Layne friend called. Verified name and date of of patient. Patient has appointment (not in EPIC) next Sunday at 1300 to try on hand brace does not work for them and would like to discuss another time/date. Asking for next Sunday if possible? TAMICA Polanco Amy M, MA 04/27/2025 8:50 AM Signed I called back and coordinated 05/01 at 11am. Allergies As of Date: 04/24/2025 Noted Allergy Reaction SEASONAL ALLERGIES 09/04/2012 14 - Other: See Comments Comments: runny nose and watery eyes Date Reviewed: 04/19/2025 Reviewed by: Anali Mar APRN.HANDLE AND VENT MACHINE OPERATOR - Fully Assessed Reason for Visit: Appointment [186] Prescriptions as of 04/27/2025 - sertraline (ZOLOFT) 50 mg tablet Take 1 tablet by mouth once daily. - iv contrast (will be provided with radiology test) CT ABD/PEL -Inject, intravenously, once for 1 dose.No IV access, [...] protocol in the CT contrast administration guidelines link. - enteric contrast (will be provided with radiology test) For CT ABD/PEL W IVCON Routine order Administer, As Directed One Time Only, via Oral, Rectal, both Oral and Rectal, Enteric Tube, Stoma or Indwelling Catheter, Enteric Contrast as designated per enteric contrast guidelines - iv contrast (will be provided with radiology test) CT Chest W -Inject, intravenously, once for 1 dose.No IV access, [...] protocol in the CT contrast administration guidelines link. - amLODIPine (NORVASC) 5 mg tablet Take 5 mg by mouth once daily. - warfarin (COUMADIN) 2 mg tablet Take 2 mg by mouth once daily. 2mg Sunday thru Sunday - lisinopril (ZESTRIL, PRINIVIL) 20 mg tablet Take 40 mg by mouth once daily. - acetaminophen (TYLENOL) 500 mg tablet Take 500 mg by mouth every 8 hours as needed. - metoprolol succinate XL, long acting, 50 mg 24 hr tablet Take 50 mg by mouth once daily. 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) [D70.2] 08/19/2012 03/04/2014 Anxiety [F41.9] 03/04/2014 Hypokalemia [E87.6] 02/03/2015 Stage 3a chronic kidney disease (HCC) [N18.31] 02/07/2023 Encounter Status:Closed by FRANCIA CADE on 04/27/25 CNOV Observed: 04/19/2025 1:30 PM Status: COMPLETED Source: [facility] Office Visit ([facility]) SIRISHA DE LEON ([id number]) 1955 M Date Time Provider Department 04/19/25 1:30 PM ANALI MAR During your visit today, we recorded the following information about you: Temperature Pulse Respiration Blood pressure 98.3 degrees 59/minute 20/minute 115/66 Weight 107 kg Anali Mar APRN.HANDLE AND VENT MACHINE OPERATOR 04/19/2025 1:45 PM Signed [facility] Subjective Sirisha De Leon is a 69 year old male. Patient presents with: Cough: Nasal drainage, post nasal drainage, sore throat, some production with cough x 2 days HPI Nontoxic-appearing male presents to urgent care with chief complaint of upper respiratory tract like infection. Duration of symptoms 2 days. Associated symptoms sore throat, nasal congestion, nasal discharge and nonproductive cough. Patient denies the use of any [id number] medications or home remedies for symptom management. Patient states recent sick contacts with similar signs and symptoms. Patient denies any productive cough, fever, chest pain, shortness of breath, pleuritic pain, rash, abdominal pain, nausea, vomiting or change in bowel or bladder habit. Past medical history prescription medications allergies reviewed. Review of Systems Constitutional: Negative for chills, diaphoresis, fatigue and fever. HENT: Positive for rhinorrhea and sore throat. Negative for congestion, ear discharge, ear pain, sinus pressure, sinus pain and sneezing. Eyes: Negative for pain, discharge, redness, itching and visual disturbance. Respiratory: Positive for cough. Negative for chest tightness, shortness of breath and wheezing. Cardiovascular: Negative for chest pain. Gastrointestinal: Negative for abdominal pain, constipation, diarrhea, nausea and vomiting. Musculoskeletal: Negative for joint swelling, neck pain and neck stiffness. Skin: Negative for rash. Neurological: Positive for headaches. Negative for dizziness and weakness. Objective BP 115/66 Pulse (!) 59 Temp 36.8 ?C (98.3 ?F) Resp 20 Wt 107 kg (235 lb 14.3 oz) SpO2 95% BMI 36.27 kg/m? Physical Exam Constitutional: Appearance: Normal appearance. HENT: Head: Normocephalic. Nose: Congestion present. No rhinorrhea. Mouth/Throat: Mouth: Mucous membranes are moist. Pharynx: Oropharynx is clear. No oropharyngeal exudate or posterior oropharyngeal erythema. Eyes: Conjunctiva/sclera: Conjunctivae normal. Cardiovascular: Rate and Rhythm: Normal rate. Pulmonary: Effort: Pulmonary effort is normal. Breath sounds: Normal breath sounds. No wheezing, rhonchi or rales. Abdominal: Palpations: Abdomen is soft. Tenderness: There is no abdominal tenderness. There is no guarding or rebound. Musculoskeletal: General: Normal range of motion. Cervical back: Normal range of motion and neck supple. No rigidity. Lymphadenopathy: Cervical: No cervical adenopathy. Skin: General: Skin is warm. Findings: No rash. Neurological: Mental Status: He is alert. {ASSESSMENT/PLAN: 1. Viral illness - ICD9: 079.99, ICD10: B34.9 - Discussed viral etiology and rationale for treatment. - Symptomatic treatment with prn analgesia - Supportive care with fluids and rest No evidence of bacterial infection. States symptoms are improving treat as viral etiology. Patient was educated on supportive therapies. Patient will follow up with primary care provider as needed. Patient was instructed to immediately proceed to emergency room for any new, worsening, or symptoms lasting longer than anticipated. The patient's clinical presentation is otherwise unremarkable at this time. Based on exam and clinical finding, the patient is stable for discharge. Plan of care was discussed with patient. Patient verbalizes understanding and agrees to plan of care. This note was generated using [employer] software. It may contain errors in wording, punctuation, or spelling. Anali Mar APRN.[facility] History and Record Review Clinical information obtained from an independent historian. History obtained from or confirmed by: parent. External record(s) reviewed: prior outpatient record. Disposition The patient was discharged. OTC Medications were advised: Procedures Allergies As of Date: 04/19/2025 Noted Allergy Reaction SEASONAL ALLERGIES 09/04/2012 14 - Other: See Comments Comments: runny nose and watery eyes Date Reviewed: 04/19/2025 Reviewed by: Anali Mar APRN.HANDLE AND VENT MACHINE OPERATOR - Fully Assessed Reason for Visit: Cough [28] Cmt: Nasal drainage, post nasal drainage, sore throat, some production with cough x 2 days Primary Visit Diagnosis:Viral illness [B34.9] Order(s):benzonatate (TESSALON PERLE) 100 mg capsuleTake 1 capsule by mouth three times a day as needed for cough for up to 7 days.Disp: 21 capsuleRfl: 0 Prescriptions as of 04/19/2025 - sertraline (ZOLOFT) 50 mg tablet Take 1 tablet by mouth once daily. - benzonatate (TESSALON PERLE) 100 mg capsule Take 1 capsule by mouth three times a day as needed for cough for up to 7 days. - iv contrast (will be provided with radiology test) CT ABD/PEL -Inject, intravenously, once for 1 dose.No IV access, [...] protocol in the CT contrast administration guidelines link. - enteric contrast (will be provided with radiology test) For CT ABD/PEL W IVCON Routine order Administer, As Directed One Time Only, via Oral, Rectal, both Oral and Rectal, Enteric Tube, Stoma or Indwelling Catheter, Enteric Contrast as designated per enteric contrast guidelines - iv contrast (will be provided with radiology test) CT Chest W -Inject, intravenously, once for 1 dose.No IV access, [...] protocol in the CT contrast administration guidelines link. - amLODIPine (NORVASC) 5 mg tablet Take 5 mg by mouth once daily. - warfarin (COUMADIN) 2 mg tablet Take 2 mg by mouth once daily. 2mg Sunday thru Sunday - lisinopril (ZESTRIL, PRINIVIL) 20 mg tablet Take 40 mg by mouth once daily. - acetaminophen (TYLENOL) 500 mg tablet Take 500 mg by mouth every 8 hours as needed. - metoprolol succinate XL, long acting, 50 mg 24 hr tablet Take 50 mg by mouth once daily. Meds Comments as of 06/25/2014: 813 Problem List As Of Date 04/19/2025 Noted Resolved Nodular lymphoma of lymph nodes of multiple sit*06/18/2012 Drug induced neutropenia(288.03) ([facility]) [D70.2] 08/19/2012 03/04/2014 Anxiety [F41.9] 03/04/2014 Hypokalemia [E87.6] 02/03/2015 Stage 3a chronic kidney disease (HCC) [N18.31] 02/07/2023 Prescriptions ordered this encounter Disp Refills Start End BENZONATATE 100 MG CAPSULE 21 c* 0 04/19/2025 04/26/2025 Route: PO Sig: Take 1 capsule by mouth three times a day as needed for cough for up to 7 days. Level of Service: OFFICE/OUTPATIENT ESTABLISHED MOD [facility] 30 MIN [18307] Encounter Status:Closed by ANALI MAR on 04/19/25 PROGRESS Observed: 04/19/2025 1:25 PM Status: COMPLETED Source: [facility] HNO ID: [id number] Author: ANALI MAR APRN.[facility] Service: ? Author Type: Nurse Practitioner Type: Progress Notes Filed: 04/19/2025 13:45 Note Text: [facility]LE De Leon is a 69 year old male. Patient presents with: Cough: Nasal drainage, post nasal drainage, sore throat, some production with cough x 2 days HPI Nontoxic-appearing male presents to urgent care with chief complaint of upper respiratory tract like infection. Duration of symptoms 2 days. Associated symptoms sore throat, nasal congestion, nasal discharge and nonproductive cough. Patient denies the use of any [id number]-usktxts medications or home remedies for symptom management. Patient states recent sick contacts with similar signs and symptoms. Patient denies any productive cough, fever, chest pain, shortness of breath, pleuritic pain, rash, abdominal pain, nausea, vomiting or change in bowel or bladder habit. Past medical history prescription medications allergies reviewed. Review of Systems Constitutional: Negative for chills, diaphoresis, fatigue and fever. HENT: Positive for rhinorrhea and sore throat. Negative for congestion, ear discharge, ear pain, sinus pressure, sinus pain and sneezing. Eyes: Negative for pain, discharge, redness, itching and visual disturbance. Respiratory: Positive for cough. Negative for chest tightness, shortness of breath and wheezing. Cardiovascular: Negative for chest pain. Gastrointestinal: Negative for abdominal pain, constipation, diarrhea, nausea and vomiting. Musculoskeletal: Negative for joint swelling, neck pain and neck stiffness. Skin: Negative for rash. Neurological: Positive for headaches. Negative for dizziness and weakness. Objective BP 115/66 Pulse (!) 59 Temp 36.8 ?C (98.3 ?F) Resp 20 Wt 107 kg (235 lb 14.3 oz) SpO2 95% BMI 36.27 kg/m? Physical Exam Constitutional: Appearance: Normal appearance. HENT: Head: Normocephalic. Nose: Congestion present. No rhinorrhea. Mouth/Throat: Mouth: Mucous membranes are moist. Pharynx: Oropharynx is clear. No oropharyngeal exudate or posterior oropharyngeal erythema. Eyes: Conjunctiva/sclera: Conjunctivae normal. Cardiovascular: Rate and Rhythm: Normal rate. Pulmonary: Effort: Pulmonary effort is normal. Breath sounds: Normal breath sounds. No wheezing, rhonchi or rales. Abdominal: Palpations: Abdomen is soft. Tenderness: There is no abdominal tenderness. There is no guarding or rebound. Musculoskeletal: General: Normal range of motion. Cervical back: Normal range of motion and neck supple. No rigidity. Lymphadenopathy: Cervical: No cervical adenopathy. Skin: General: Skin is warm. Findings: No rash. Neurological: Mental Status: He is alert. {ASSESSMENT/PLAN: 1. Viral illness - ICD9: 079.99, ICD10: B34.9 - Discussed viral etiology and rationale for treatment. - Symptomatic treatment with prn analgesia - Supportive care with fluids and rest No evidence of bacterial infection. States symptoms are improving treat as viral etiology. Patient was educated on supportive therapies. Patient will follow up with primary care provider as needed. Patient was instructed to immediately proceed to emergency room for any new, worsening, or symptoms lasting longer than anticipated. The patient's clinical presentation is otherwise unremarkable at this time. Based on exam and clinical finding, the patient is stable for discharge. Plan of care was discussed with patient. Patient verbalizes understanding and agrees to plan of care. This note was generated using [employer] software. It may contain errors in wording, punctuation, or spelling. Anali Mar APRN.HANDLE AND VENT MACHINE OPERATOR History and Record Review Clinical information obtained from an independent historian. History obtained from or confirmed by: parent. External record(s) reviewed: prior outpatient record. Disposition The patient was discharged. OTC Medications were advised: Procedures PROGRESS Observed: 03/16/2025 10:16 AM Status: COMPLETED Source: [facility] HNO ID: [id number] Author: DASH ABBOTT MD Service: ? Author Type: Physician Type: Progress Notes Filed: 04/13/2025 18:42 Note Text: [facility] [address] [facility] [address] Dept: [phone] Dept March 16, 2025 CHIEF COMPLAINT: Pain of the Left Hand HPI Patient here today for left thumb pain. He states that he woke up last week one day and the thumb was locked. He has to loosen it up with his other hand. He is right hand dominant. ASSESSMENT: M79.645 Pain of left thumb (primary encounter diagnosis) M65.312 Trigger finger of left thumb M18.12 Primary osteoarthritis of first carpometacarpal joint of left hand Will continue to monitor patient for Pain of left thumb (primary encounter diagnosis) Trigger finger of left thumb Primary osteoarthritis of first carpometacarpal joint of left hand, patient to schedule visit as per follow up discussed. OBJECTIVE: Mr. Sirisha De Leon is a pleasant 69 year old in no apparent distress. Gen:There were no vitals taken for this visit. nl development, obese, no deformities ENT: Normocephalic, normal hearing, moist mucosa CV: Pulses:Radial= 2+ and symmetric, capillary refill < 2 secs, no peripheral edema/varicosities Skin: no rash, bruising or lesions. Good turgor. Psych: cooperative and appropriate, alert and oriented x 3, good mood and affect. Musculoskeletal: Very mild, if any TTP at the basal joint with minimal crepitus, not much of a problem. Hyperextension of the MCP joint. TTP, moderately at the A1 evette. With clicking without locking of the digit. IMAGING: IMPRESSION: No acute fracture or dislocation is seen. Degenerative changes. Mold Puller: SHANIKA Transcribe Date/Time: Mar 20 2025 3:51P Dictated by : ROCÍO ANDERSEN MD This examination was interpreted and the report reviewed and electronically signed by: ROCÍO ANDERSEN MD on Mar 20 2025 3:52PM EST Results-Findings * * *Final Report* * * DATE OF EXAM: Mar 16 2025 9:57AM [id number] - XR HAND 3V PA/LAT/OBL LT / PROCEDURE REASON: Pain of left thumb * * * * Physician Interpretation * * * * XR HAND 3V PA/LAT/OBL LT 03/16/2025 9:57 AM HISTORY: Pain of left thumb TECHNIQUE: 3 view(s) of the left hand COMPARISON: No prior similar exams are available for comparison RESULT: Bone mineralization/ degenerative changes: Bone density grossly within normal limits. Moderate interphalangeal degenerative change. Moderate narrowing and subchondral sclerosis at the triscaphe joint and base of the thumb. Mild narrowing radiocarpal joint space. Alignment of the osseous structures: The alignment appears anatomical without a subluxation or dislocation seen. Fractures: No acute fractures are seen. Soft tissues: No radiopaque foreign bodies are seen. Supporting Subjective Information Below: Past Medical History: PAST MEDICAL HISTORY Diagnosis Date A-fib (HCC) Anxiety Hypertension Past Surgical History: PAST SURGICAL HISTORY Procedure Laterality Date BIOPSY - ABDOMEN 06/07/2012 PAST SURGICAL HISTORY OF 1969 hernia repair, right groin Family History: FAMILY HISTORY Problem Relation Age of Onset Hypertension Mother Hypertension Maternal Grandmother Cancer Maternal Aunt pancreatic Heart Unknown strong history of heart disease on mothers side of family Social History: Social History Tobacco Use Smoking status: Never Smokeless tobacco: Never Vaping Use Vaping status: Never Used Substance Use Topics Alcohol use: No Drug use: No Medications: Current Outpatient Medications Medication Sig iv contrast (will be provided with radiology test) CT ABD/PEL -Inject, intravenously, once for 1 dose.No IV access, [...] protocol in the CT contrast administration guidelines link. enteric contrast (will be provided with radiology test) For CT ABD/PEL W IVCON Routine order Administer, As Directed One Time Only, via Oral, Rectal, both Oral and Rectal, Enteric Tube, Stoma or Indwelling Catheter, Enteric Contrast as designated per enteric contrast guidelines iv contrast (will be provided with radiology test) CT Chest W -Inject, intravenously, once for 1 dose.No IV access, [...] protocol in the CT contrast administration guidelines link. amLODIPine (NORVASC) 5 mg tablet Take 5 mg by mouth once daily. warfarin (COUMADIN) 2 mg tablet Take 2 mg by mouth once daily. 2mg Sunday thru Sunday lisinopril (ZESTRIL, PRINIVIL) 20 mg tablet Take 40 mg by mouth once daily. acetaminophen (TYLENOL) 500 mg tablet Take 500 mg by mouth every 8 hours as needed. metoprolol succinate XL, long acting, 50 mg 24 hr tablet Take 50 mg by mouth once daily. No current facility-administered medications for this visit. Allergies: Seasonal Allergies ROS: General (negative for fatigue, malaise, weight loss/gain) HEENT (negative for headache, earache, recent vision changes, sinus pain, sore throat) Respiratory (no recent shortness of breath, hemoptysis) CV (negative for chest tightness, palpitations) Musculoskeletal (see HPI) Psych (no depression, anxiety) Dash Abbott MD XR HAND 3V PA/LAT/OBL LT Observed: 03/16 9:57 AM Status: F Source: [facility] * * *Final Report* * * DATE OF EXAM: Mar 16 2025 9:57AM [id number] - XR HAND 3V PA/LAT/OBL LT / PROCEDURE REASON: Pain of left thumb * * * * Physician Interpretation * * * * XR HAND 3V PA/LAT/OBL LT 03/16/2025 9:57 AM HISTORY: Pain of left thumb TECHNIQUE: 3 view(s) of the left hand COMPARISON: No prior similar exams are available for comparison RESULT: Bone mineralization/ degenerative changes: Bone density grossly within normal limits. Moderate interphalangeal degenerative change. Moderate narrowing and subchondral sclerosis at the triscaphe joint and base of the thumb. Mild narrowing radiocarpal joint space. Alignment of the osseous structures: The alignment appears anatomical without a subluxation or dislocation seen. Fractures: No acute fractures are seen. Soft tissues: No radiopaque foreign bodies are seen. IMPRESSION: No acute fracture or dislocation is seen. Degenerative changes. Mold Puller: PSCB Transcribe Date/Time: Mar 20 2025 3:51P Dictated by : ROCÍO ANDERSEN MD This examination was interpreted and the report reviewed and electronically signed by: ROCÍO ANDERSEN MD on Mar 20 2025 3:52PM EST [id number] CNOV Observed: 03/16/2025 9:45 AM Status: COMPLETED Source: [facility] Office Visit (ORTHWS) SIRISHA DE LEON ([id number]) 1955 M Date Time Provider Department 03/16/25 9:45 AM DASH ABBOTT During your visit today, we recorded the following information about you: Dash Abbott MD 04/13/2025 6:42 PM Signed Dash Abbott MD Department of Orthopaedics Orthopaedics [address] [place] [address] Dept: [phone] Dept March 16, 2025 CHIEF COMPLAINT: Pain of the Left Hand HPI Patient here today for left thumb pain. He states that he woke up last week one day and the thumb was locked. He has to loosen it up with his other hand. He is right hand dominant. ASSESSMENT: M79.645 Pain of left thumb (primary encounter diagnosis) M65.312 Trigger finger of left thumb M18.12 Primary osteoarthritis of first carpometacarpal joint of left hand Will continue to monitor patient for Pain of left thumb (primary encounter diagnosis) Trigger finger of left thumb Primary osteoarthritis of first carpometacarpal joint of left hand, patient to schedule visit as per follow up discussed. OBJECTIVE: Mr. Sirisha De Leon is a pleasant 69 year old in no apparent distress. Gen:There were no vitals taken for this visit. nl development, obese, no deformities ENT: Normocephalic, normal hearing, moist mucosa CV: Pulses:Radial= 2+ and symmetric, capillary refill < 2 secs, no peripheral edema/varicosities Skin: no rash, bruising or lesions. Good turgor. Psych: cooperative and appropriate, alert and oriented x 3, good mood and affect. Musculoskeletal: Very mild, if any TTP at the basal joint with minimal crepitus, not much of a problem. Hyperextension of the MCP joint. TTP, moderately at the A1 evette. With clicking without locking of the digit. IMAGING: IMPRESSION: No acute fracture or dislocation is seen. Degenerative changes. Mold Puller: PSCB Transcribe Date/Time: Mar 20 2025 3:51P Dictated by : ROCÍO ANDERSEN MD This examination was interpreted and the report reviewed and electronically signed by: ROCÍO ANDERSEN MD on Mar 20 2025 3:52PM EST Results-Findings * * *Final Report* * * DATE OF EXAM: Mar 16 2025 9:57AM [id number] - XR HAND 3V PA/LAT/OBL LT / PROCEDURE REASON: Pain of left thumb * * * * Physician Interpretation * * * * XR HAND 3V PA/LAT/OBL LT 03/16/2025 9:57 AM HISTORY: Pain of left thumb TECHNIQUE: 3 view(s) of the left hand COMPARISON: No prior similar exams are available for comparison RESULT: Bone mineralization/ degenerative changes: Bone density grossly within normal limits. Moderate interphalangeal degenerative change. Moderate narrowing and subchondral sclerosis at the triscaphe joint and base of the thumb. Mild narrowing radiocarpal joint space. Alignment of the osseous structures: The alignment appears anatomical without a subluxation or dislocation seen. Fractures: No acute fractures are seen. Soft tissues: No radiopaque foreign bodies are seen. Supporting Subjective Information Below: Past Medical History: PAST MEDICAL HISTORY Diagnosis Date A-fib (HCC) Anxiety Hypertension Past Surgical History: PAST SURGICAL HISTORY Procedure Laterality Date BIOPSY - ABDOMEN 06/07/2012 PAST SURGICAL HISTORY OF 1969 hernia repair, right groin Family History: FAMILY HISTORY Problem Relation Age of Onset Hypertension Mother Hypertension Maternal Grandmother Cancer Maternal Aunt pancreatic Heart Unknown strong history of heart disease on mothers side of family Social History: Social History Tobacco Use Smoking status: Never Smokeless tobacco: Never Vaping Use Vaping status: Never Used Substance Use Topics Alcohol use: No Drug use: No Medications: Current Outpatient Medications Medication Sig iv contrast (will be provided with radiology test) CT ABD/PEL -Inject, intravenously, once for 1 dose.No IV access, [...] protocol in the CT contrast administration guidelines link. enteric contrast (will be provided with radiology test) For CT ABD/PEL W IVCON Routine order Administer, As Directed One Time Only, via Oral, Rectal, both Oral and Rectal, Enteric Tube, Stoma or Indwelling Catheter, Enteric Contrast as designated per enteric contrast guidelines iv contrast (will be provided with radiology test) CT Chest W -Inject, intravenously, once for 1 dose.No IV access, [...] protocol in the CT contrast administration guidelines link. amLODIPine (NORVASC) 5 mg tablet Take 5 mg by mouth once daily. warfarin (COUMADIN) 2 mg tablet Take 2 mg by mouth once daily. 2mg Sunday thru Sunday lisinopril (ZESTRIL, PRINIVIL) 20 mg tablet Take 40 mg by mouth once daily. acetaminophen (TYLENOL) 500 mg tablet Take 500 mg by mouth every 8 hours as needed. metoprolol succinate XL, long acting, 50 mg 24 hr tablet Take 50 mg by mouth once daily. No current facility-administered medications for this visit. Allergies: Seasonal Allergies ROS: General (negative for fatigue, malaise, weight loss/gain) HEENT (negative for headache, earache, recent vision changes, sinus pain, sore throat) Respiratory (no recent shortness of breath, hemoptysis) CV (negative for chest tightness, palpitations) Musculoskeletal (see HPI) Psych (no depression, anxiety) MD Rayo Chicas Amy M, MA 05/01/2025 11:09 AM Signed PT ASSESSMENT - CASTING ROOM Sirisha presents for Application of brace. Applied Large Comfort cool brace to Left hand. Patient electronically signed Vinicio BAILEY. Patient has been instructed in Care and proper application of brace. Francia Cade MA Allergies As of Date: 03/16/2025 Noted Allergy Reaction SEASONAL ALLERGIES 09/04/2012 14 - Other: See Comments Comments: runny nose and watery eyes Date Reviewed: 03/16/2025 Reviewed by: Dash Abbott MD - Fully Assessed Reason for Visit: Pain [78] Primary Visit Diagnosis:Pain of left thumb [M79.645] Other Visit Diagnoses:Trigger finger of left thumb [M65.312] Primary osteoarthritis of first carpometacarpal joint of left hand [M18.12] Prescriptions as of 05/01/2025 - sertraline (ZOLOFT) 50 mg tablet Take 1 tablet by mouth once daily. - iv contrast (will be provided with radiology test) CT ABD/PEL -Inject, intravenously, once for 1 dose.No IV access, [...] protocol in the CT contrast administration guidelines link. - enteric contrast (will be provided with radiology test) For CT ABD/PEL W IVCON Routine order Administer, As Directed One Time Only, via Oral, Rectal, both Oral and Rectal, Enteric Tube, Stoma or Indwelling Catheter, Enteric Contrast as designated per enteric contrast guidelines - iv contrast (will be provided with radiology test) CT Chest W -Inject, intravenously, once for 1 dose.No IV access, [...] protocol in the CT contrast administration guidelines link. - amLODIPine (NORVASC) 5 mg tablet Take 5 mg by mouth once daily. - warfarin (COUMADIN) 2 mg tablet Take 2 mg by mouth once daily. 2mg Sunday thru Sunday - lisinopril (ZESTRIL, PRINIVIL) 20 mg tablet Take 40 mg by mouth once daily. - acetaminophen (TYLENOL) 500 mg tablet Take 500 mg by mouth every 8 hours as needed. - metoprolol succinate XL, long acting, 50 mg 24 hr tablet Take 50 mg by mouth once daily. 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 Author Type: Technologist Type: Progress Notes Filed: 03/16/2025 10:48 Note Text: Radiology Service Progress Note PATIENT NAME: Sirisha De Leon DATE OF SERVICE: March 16, 2025 TIME: 10:47 AM PATIENT IDENTITY VERIFICATION COMPLETED USING TWO (2) IDENTIFIERS: Name and Date of confirmed by patient verbally. FALL SCREENING: Has the patient had 2 falls in the last year or 1 fall with injury or currently using an Ambulatory Assistive Device (Walker, Cane, Wheelchair, Crutches, etc.)? No PATIENT GENDER DATA: Assigned male at PATIENT RELEVANT IMPLANT DATA REVIEWED: Not Applicable PATIENT PRESENTS WITH AN IMPLANTABLE OR ATTACHED VALVE INSPECTOR: No RADIOLOGY DEPARTMENT: General X-ray: Exam(s) Completed: Upper Extremity X-Ray(s): Hand, left PERIPHERAL IV DATA: Not applicable SIGNED BY: RT Beth(R) March 16, 2025 10:47 AM CNPN Observed: 02/23/2025 12:00 AM Status: COMPLETED Source: [facility] Telephone (ORTHWS) SIRISHA DE LEON ([id number]) 1955 M Date Time Provider Department 02/23/25 DASH ABBOTT During your visit today, we recorded the following information about you: Margaret Brown LPN 02/23/2025 10:20 AM Signed Patient's significant other calling and states the patient has a "double jointed" left thumb that has been causing him discomfort the last couple weeks. He did injure the thumb during his childhood and has had intermittent issues off and on. It has not been previously evaluated. They are questioning if our office can evaluate? Please advise. [phone] is the best number. TAMICA Dasilva Linda, MA 02/24/2025 8:44 AM Signed Please assist patient in scheduling an appointment with Dr Abbott. Unique Wilburn 02/24/2025 9:11 AM Signed 1st attempt LVM to schedule appt with Dr. Abbott Allergies As of Date: 02/23/2025 Noted Allergy Reaction SEASONAL ALLERGIES 09/04/2012 14 - Other: See Comments Comments: runny nose and watery eyes Date Reviewed: 01/06/2025 Reviewed by: Shirley Dudley MA - Fully Assessed Reason for Visit: Patient Question [9912] Prescriptions as of 03/03/2025 - iv contrast (will be provided with radiology test) CT ABD/PEL -Inject, intravenously, once for 1 dose.No IV access, [...] protocol in the CT contrast administration guidelines link. - enteric contrast (will be provided with radiology test) For CT ABD/PEL W IVCON Routine order Administer, As Directed One Time Only, via Oral, Rectal, both Oral and Rectal, Enteric Tube, Stoma or Indwelling Catheter, Enteric Contrast as designated per enteric contrast guidelines - iv contrast (will be provided with radiology test) CT Chest W -Inject, intravenously, once for 1 dose.No IV access, [...] protocol in the CT contrast administration guidelines link. - amLODIPine (NORVASC) 5 mg tablet Take 5 mg by mouth once daily. - warfarin (COUMADIN) 2 mg tablet Take 2 mg by mouth once daily. 2mg Sunday thru Sunday - lisinopril (ZESTRIL, PRINIVIL) 20 mg tablet Take 40 mg by mouth once daily. - acetaminophen (TYLENOL) 500 mg tablet Take 500 mg by mouth every 8 hours as needed. - metoprolol succinate XL, long acting, 50 mg 24 hr tablet Take 50 mg by mouth once daily. 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 Author Type: Nurse Practitioner Type: Progress Notes Filed: 01/06/2025 15:15 Note Text: [facility] Subjective Sirisha De Leon is a 69 year old male. Patient presents with: Chest Congestion: cough and wheezing x 1 week HPI Cough and Chest Congestion: - Symptoms began approximately one week ago. - Reports cough, chest congestion, and wheezing. - Denies fever, significant dyspnea, or chest pain. - Cough occasionally produces phlegm. - No history of asthma or COPD. - Denies edema in feet or ankles. - Exposed to someone with bronchitis; believes symptoms may be exacerbated by grass mowing. - Takes Claritin for allergies and Coricidin for cough. Review of Systems Constitutional: Negative for chills and fatigue. Constitutional: (-) fever Cardiovascular: (-) chest pain, (-) pedal edema Respiratory: (+) cough, (+) chest congestion, (+) wheezing, (+) phlegm, (-) shortness of breath Objective BP 122/70 Pulse 66 Temp 36.2 ?C (97.2 ?F) Resp 16 Wt 107 kg (235 lb 14.3 oz) SpO2 98% BMI 36.27 kg/m? PAST MEDICAL HISTORY Diagnosis Date A-fib (HCC) Anxiety Hypertension PAST SURGICAL HISTORY Procedure Laterality Date BIOPSY - ABDOMEN 06/07/2012 PAST SURGICAL HISTORY OF 1969 hernia repair, right groin ALLERGIES Seasonal Allergies MEDICATIONS amLODIPine (NORVASC) 5 mg tablet Take 5 mg by mouth once daily. warfarin (COUMADIN) 2 mg tablet Take 2 mg by mouth once daily. 2mg Sunday thru Sunday lisinopril (ZESTRIL, PRINIVIL) 20 mg tablet Take 40 mg by mouth once daily. acetaminophen (TYLENOL) 500 mg tablet Take 500 mg by mouth every 8 hours as needed. metoprolol succinate XL, long acting, 50 mg 24 hr tablet Take 50 mg by mouth once daily. iv contrast (will be provided with radiology test) CT ABD/PEL -Inject, intravenously, once for 1 dose.No IV access, [...] protocol in the CT contrast administration guidelines link. enteric contrast (will be provided with radiology test) For CT ABD/PEL W IVCON Routine order Administer, As Directed One Time Only, via Oral, Rectal, both Oral and Rectal, Enteric Tube, Stoma or Indwelling Catheter, Enteric Contrast as designated per enteric contrast guidelines iv contrast (will be provided with radiology test) CT Chest W -Inject, intravenously, once for 1 dose.No IV access, [...] protocol in the CT contrast administration guidelines link. FAMILY HISTORY Problem Relation Age of Onset Hypertension Mother Hypertension Maternal Grandmother Cancer Maternal Aunt pancreatic Heart Unknown strong history of heart disease on mothers side of family Social History Tobacco Use Smoking status: Never Smokeless tobacco: Never Vaping Use Vaping status: Never Used Substance Use Topics Alcohol use: No Drug use: No Physical Exam Cardiovascular: Rate and Rhythm: Normal rate. Heart sounds: Normal heart sounds. Pulmonary: Effort: Pulmonary effort is normal. Breath sounds: Examination of the right-upper field reveals wheezing. Examination of the left-upper field reveals wheezing. Wheezing present. Musculoskeletal: Right lower leg: No edema. Left lower leg: No edema. General: No acute distress. CV: Heart sounds regular. Resp: Wheezing. {1. Acute bronchitis, unspecified organism (J20.9) - Symptoms include cough, chest congestion, and wheezing for about a week; no reported fever or significant dyspnea. - Mild wheezing noted on auscultation; no edema in lower extremities, no chest pain reported. - Vital signs stable; SpO2 at 98%. - Prescribed antibiotic and corticosteroid; transmitted prescriptions to [facility]. 2. Allergic rhinitis due to pollen, unspecified seasonality (J30.1) - Symptoms exacerbated by grass exposure; taking Claritin for management. - Continue current antihistamine therapy. - Follow-up with your PCP in 3-5 days if symptoms have not improved or sooner if symptoms worsen - Discussed red flags and need for immediate medical evaluation if any occur. - Discussed supportive care treatment with fluids, rest and analgesia. - Discussed expected course of illness Anjana Woodruff APRN.HANDLE AND VENT MACHINE OPERATOR and Recording using iPourit software for draft documentation of the visit was discussed with the patient/authorized community relations representative; all questions welcomed and answered. Patient/authorized community relations representative agreed to proceed MDM Procedures CNOV Observed: 01/06/2025 3:00 PM Status: COMPLETED Source: [facility] Office Visit (WSTR) SIRISHA DE LEON ([id number]) 1955 M Date Time Provider Department 01/06/25 3:00 PM ANJANA WOODRUFF [facility] During your visit today, we recorded the following information about you: Temperature Pulse Respiration Blood pressure 97.2 degrees 66/minute 16/minute 122/70 Weight 107 kg Anjana Woodruff, POLO.HANDLE AND VENT MACHINE OPERATOR 01/06/2025 3:15 PM Signed [facility] Subjective Sirisha De Leon is a 69 year old male. Patient presents with: Chest Congestion: cough and wheezing x 1 week HPI Cough and Chest Congestion: - Symptoms began approximately one week ago. - Reports cough, chest congestion, and wheezing. - Denies fever, significant dyspnea, or chest pain. - Cough occasionally produces phlegm. - No history of asthma or COPD. - Denies edema in feet or ankles. - Exposed to someone with bronchitis; believes symptoms may be exacerbated by grass mowing. - Takes Claritin for allergies and Coricidin for cough. Review of Systems Constitutional: Negative for chills and fatigue. Constitutional: (-) fever Cardiovascular: (-) chest pain, (-) pedal edema Respiratory: (+) cough, (+) chest congestion, (+) wheezing, (+) phlegm, (-) shortness of breath Objective BP 122/70 Pulse 66 Temp 36.2 ?C (97.2 ?F) Resp 16 Wt 107 kg (235 lb 14.3 oz) SpO2 98% BMI 36.27 kg/m? PAST MEDICAL HISTORY Diagnosis Date A-fib (HCC) Anxiety Hypertension PAST SURGICAL HISTORY Procedure Laterality Date BIOPSY - ABDOMEN 06/07/2012 PAST SURGICAL HISTORY OF 1969 hernia repair, right groin ALLERGIES Seasonal Allergies MEDICATIONS amLODIPine (NORVASC) 5 mg tablet Take 5 mg by mouth once daily. warfarin (COUMADIN) 2 mg tablet Take 2 mg by mouth once daily. 2mg Sunday thru Sunday lisinopril (ZESTRIL, PRINIVIL) 20 mg tablet Take 40 mg by mouth once daily. acetaminophen (TYLENOL) 500 mg tablet Take 500 mg by mouth every 8 hours as needed. metoprolol succinate XL, long acting, 50 mg 24 hr tablet Take 50 mg by mouth once daily. iv contrast (will be provided with radiology test) CT ABD/PEL -Inject, intravenously, once for 1 dose.No IV access, [...] protocol in the CT contrast administration guidelines link. enteric contrast (will be provided with radiology test) For CT ABD/PEL W IVCON Routine order Administer, As Directed One Time Only, via Oral, Rectal, both Oral and Rectal, Enteric Tube, Stoma or Indwelling Catheter, Enteric Contrast as designated per enteric contrast guidelines iv contrast (will be provided with radiology test) CT Chest W -Inject, intravenously, once for 1 dose.No IV access, [...] protocol in the CT contrast administration guidelines link. FAMILY HISTORY Problem Relation Age of Onset Hypertension Mother Hypertension Maternal Grandmother Cancer Maternal Aunt pancreatic Heart Unknown strong history of heart disease on mothers side of family Social History Tobacco Use Smoking status: Never Smokeless tobacco: Never Vaping Use Vaping status: Never Used Substance Use Topics Alcohol use: No Drug use: No Physical Exam Cardiovascular: Rate and Rhythm: Normal rate. Heart sounds: Normal heart sounds. Pulmonary: Effort: Pulmonary effort is normal. Breath sounds: Examination of the right-upper field reveals wheezing. Examination of the left-upper field reveals wheezing. Wheezing present. Musculoskeletal: Right lower leg: No edema. Left lower leg: No edema. General: No acute distress. CV: Heart sounds regular. Resp: Wheezing. {1. Acute bronchitis, unspecified organism (J20.9) - Symptoms include cough, chest congestion, and wheezing for about a week; no reported fever or significant dyspnea. - Mild wheezing noted on auscultation; no edema in lower extremities, no chest pain reported. - Vital signs stable; SpO2 at 98%. - Prescribed antibiotic and corticosteroid; transmitted prescriptions to [facility]. 2. Allergic rhinitis due to pollen, unspecified seasonality (J30.1) - Symptoms exacerbated by grass exposure; taking Claritin for management. - Continue current antihistamine therapy. - Follow-up with your PCP in 3-5 days if symptoms have not improved or sooner if symptoms worsen - Discussed red flags and need for immediate medical evaluation if any occur. - Discussed supportive care treatment with fluids, rest and analgesia. - Discussed expected course of illness Anjana Woodruff APRN.HANDLE AND VENT MACHINE OPERATOR and Recording using iPourit software for draft documentation of the visit was discussed with the patient/authorized community relations representative; all questions welcomed and answered. Patient/authorized community relations representative agreed to proceed MDM Anjana Rose APRN.HANDLE AND VENT MACHINE OPERATOR 01/06/2025 3:15 PM Signed 1. Acute bronchitis, unspecified organism (J20.9) - Symptoms include cough, chest congestion, and wheezing for about a week; no reported fever or significant dyspnea. - Mild wheezing noted on auscultation; no edema in lower extremities, no chest pain reported. - Vital signs stable; SpO2 at 98%. - Prescribed antibiotic and corticosteroid; [facility] 2. Allergic rhinitis due to pollen, unspecified seasonality (J30.1) - Symptoms exacerbated by grass exposure; taking Claritin for management. - Continue current antihistamine therapy. - Bronchitis diagnosed; new [facility] and [facility]--pick them up and take as directed. - Continue your Coricidin supplement for cough relief. - Continue taking Claritin for your seasonal allergies. Allergies As of Date: 01/06/2025 Noted Allergy Reaction SEASONAL ALLERGIES 09/04/2012 14 - Other: See Comments Comments: runny nose and watery eyes Date Reviewed: 01/06/2025 Reviewed by: Shirely Dudley MA - Fully Assessed Reason for Visit: Chest Congestion [236] Cmt: cough and wheezing x 1 week Visit Diagnoses:Acute bronchitis, unspecified organism [J20.9] Allergic rhinitis due to pollen, unspecified seasonality [J30.1] Order(s):doxycycline hyclate (VIBRAMYCIN) 100 mg capsuleTake 1 capsule by mouth two times a day for 10 days.Disp: 20 capsuleRfl: 0 predniSONE (DELTASONE) 20 mg tabletTake 2 tablets by mouth once daily for 4 days.Disp: 8 tabletRfl: 0 Prescriptions as of 01/06/2025 - doxycycline hyclate (VIBRAMYCIN) 100 mg capsule Take 1 capsule by mouth two times a day for 10 days. - predniSONE (DELTASONE) 20 mg tablet Take 2 tablets by mouth once daily for 4 days. - iv contrast (will be provided with radiology test) CT ABD/PEL -Inject, intravenously, once for 1 dose.No IV access, [...] protocol in the CT contrast administration guidelines link. - enteric contrast (will be provided with radiology test) For CT ABD/PEL W IVCON Routine order Administer, As Directed One Time Only, via Oral, Rectal, both Oral and Rectal, Enteric Tube, Stoma or Indwelling Catheter, Enteric Contrast as designated per enteric contrast guidelines - iv contrast (will be provided with radiology test) CT Chest W -Inject, intravenously, once for 1 dose.No IV access, [...] protocol in the CT contrast administration guidelines link. - amLODIPine (NORVASC) 5 mg tablet Take 5 mg by mouth once daily. - warfarin (COUMADIN) 2 mg tablet Take 2 mg by mouth once daily. 2mg Sunday thru Sunday - lisinopril (ZESTRIL, PRINIVIL) 20 mg tablet Take 40 mg by mouth once daily. - acetaminophen (TYLENOL) 500 mg tablet Take 500 mg by mouth every 8 hours as needed. - metoprolol succinate XL, long acting, 50 mg 24 hr tablet Take 50 mg by mouth once daily. 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 Acute bronchitis, unspecified organism (J20.9) - Symptoms include cough, chest congestion, and wheezing for about a week; no reported fever or significant dyspnea. - Mild wheezing noted on auscultation; no edema in lower extremities, no chest pain reported. - Vital signs stable; SpO2 at 98%. - Prescribed antibiotic and corticosteroid; transmitted prescriptions to [facility]. 2. Allergic rhinitis due to pollen, unspecified seasonality (J30.1) - Symptoms exacerbated by grass exposure; taking Claritin for management. - Continue current antihistamine therapy. - Bronchitis diagnosed; new antibiotic and steroid prescriptions have been sent to [facility]--pick them up and take as directed. - Continue your Coricidin supplement for cough relief. - Continue taking Claritin for your seasonal allergies. Prescriptions ordered this encounter Disp Refills Start End DOXYCYCLINE HYCLATE 100 MG CAPSULE 20 c* 0 01/06/2025 01/16/2025 Route: ORAL Sig: Take 1 capsule by mouth two times a day for 10 days. PREDNISONE 20 MG TABLET 8 ta* 0 01/06/2025 01/10/2025 Route: ORAL Sig: Take 2 tablets by mouth once daily for 4 days. Disposition: Return if symptoms worsen or fail to improve. Follow-up and Disposition History for Encounter Date Provider Department Center 01/06/2025 [id number] Encounter Status:Closed by ANJANA WOODRUFF on 01/06/25 CNOVSP Observed: 09/05/2024 10:00 AM Status: COMPLETED Source: [facility] Visit (SP) Office (BRUCE) SIRISHA DE LEON ([id number]) 1955 M Date Time Provider Department 09/05/24 10:00 AM JULIA MCCARTY During your visit today, we recorded the following information about you: Temperature Pulse Blood pressure Weight 97.4 degrees 63/minute 116/76 108.8 kg Julia Mccarty APRN.CNP 09/05/2024 10:16 AM Signed Chief Complaint Patient presents with: Established Patient HPI: Sirisha De Leon is a 69 year old male who presents here today for follow up follicular lymphoma. Per Dr. Mayer's previous note: H/o HTN and atrial fibrillation (on Coumadin). Over the year prior to initial presentation/evaluation for lymphoma, he noted he had been feeling more fatigued. 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 Completed 10/17/12. Received maintenance rituximab. No new concerns today. Appetite:"Good." Wt. up 3# Energy level:"Good." Denies fevers or recent illness. Resp:denies cough or sob Cardiac:denies chest pain/palpitations GI:denies abd pain, n/v, moving bowels regularly :denies dysuria/hematuria Extrem:chronic b/l hip pain Neuro:denies symptoms of neuropathy Skin:denies rashes Heme:denies bleeding The ROS is otherwise negative. Past medical history, appointments, medications, allergies reviewed. No changes. EXAM: BP 116/76 Pulse 63 Temp 36.3 ?C (97.4 ?F) (Temporal) Wt 108.8 kg (239 lb 13.8 oz) SpO2 97% BMI 36.88 kg/m? APPEARANCE Well appearing, alert, in no acute distress, well-hydrated, well nourished. HEART RRR with normal S1 and S2, no murmurs LUNG clear to auscultation LYMPH NODES No cervical lymphadenopathy, No supraclavicular lymphadenopathy, and No axillary lymphadenopathy. ABDOMEN bowel sounds normoactive, soft, non-tender, non-distended EXTREMITIES trace edema BLE NEURO Awake, alert and oriented x 3, Normal gait, and No involuntary motions. SKIN Skin color, texture, turgor normal, no suspicious rashes or lesions LABS: Latest Ref Rng 01/31/2023 08/06/2023 02/28/2024 09/05/2024 WBC 3.70 - 11.00 k/uL 10.24 7.08 8.41 6.91 RBC 4.20 - 6.00 m/uL 5.41 4.96 4.89 5.06 Hemoglobin 13.0 - 17.0 g/dL 15.7 14.9 14.0 15.0 Hematocrit 39.0 - 51.0 % 47.1 43.9 42.7 44.5 MCV 80.0 - 100.0 fL 87.1 88.5 87.3 87.9 MCH 26.0 - 34.0 pg 29.0 30.0 28.6 29.6 MCHC 30.5 - 36.0 g/dL 33.3 33.9 32.8 33.7 RDW-CV 11.5 - 15.0 % 14.3 13.6 14.0 13.9 Platelet Count 150 - 400 k/uL 198 201 212 214 MPV 9.0 - 12.7 fL 11.0 10.6 10.9 10.7 Neut% % 72.6 68.1 63.5 69.1 Abs Neut (ANC) 1.45 - 7.50 k/uL 7.44 4.82 5.35 4.78 Lymph% % 14.3 19.2 18.1 18.7 Abs Lymph 1.00 - 4.00 k/uL 1.46 1.36 1.52 1.29 Schley% % 8.1 9.6 10.5 8.4 Abs Schley <0.87 k/uL 0.83 0.68 0.88 (H) 0.58 Eosin% % 3.9 2.0 6.7 2.6 Abs Eosin <0.46 k/uL 0.40 0.14 0.56 (H) 0.18 Baso% % 0.6 0.7 0.8 0.9 Abs Baso <0.11 k/uL 0.06 0.05 0.07 0.06 Immature Gran % % 0.5 0.4 0.4 0.3 IMMATURE GRANS (ABS) <0.10 k/uL 0.05 0.03 0.03 <0.03 NRBC /100 WBC 0.0 0.0 0.0 0.0 Absolute nRBC <0.01 k/uL <0.01 <0.01 <0.01 <0.01 DTYPE Auto Auto Auto Auto CMP/LD/Uric acid: Pending ASSESSMENT/PLAN: 1. Encounter for follow-up surveillance of lymphoma - ICD9: V67.9, V10.79, ICD10: Z08, Z85.[address] Mayer's previous note: Assessment: -Pathology at [facility] consistent with dx grade 1-2 disease, but had presented as aggressive disease. -Tolerated chemotherapy very well. -Tolerated maintenance rituximab well without noticeable side effect. -No concerning symptoms or exam findings at this time. -Reviewed labs. Improved Cr. -CTs stable mild RP adenopathy. Plan: -CBC/BMP/Liver panel/LDH then OV in about 6 months. -Plan CTs in about a year. - No concerning findings on exam. - Tolerated previous therapy well. - Reviewed CBC with pt. - CMP/LD/Uric acid pending. - Continue follow up with PCP for routine care. - CT's in 6 months. - Follow up after above with CBC/CMP/LD/Uric acid. - Pt. aware to call office with any questions/concerns. The patient indicates understanding of these issues and agrees with the plan. All documentation from previous visit of 08/06/23 AND 03/06/24-Dr. Mayer was copied and pasted, documentation has been reviewed and edited as necessary for today's visit. Julia Mccarty APRN.CNP Referring Provider: BE MAYER [[id number]] Allergies As of Date: 09/05/2024 Noted Allergy Reaction SEASONAL ALLERGIES 09/04/2012 14 - Other: See Comments Comments: runny nose and watery eyes Date Reviewed: 09/05/2024 Reviewed by: Julia Mccarty APRN.CNP - Fully Assessed Reason for Visit: Established Patient [175] Primary Visit Diagnosis:Encounter for follow-up surveillance of lymphoma [Z08, Z85.72] Order(s):CT ABD/PEL W IVCON [[id number]] Order #: [id number] FUTURE CT CHEST W IVCON [[id number]] Order #: [id number] FUTURE iv contrast (will be provided with [...] per enteric contrast guidelinesDisp: 1 EachRfl: 0 CREATININE BLD [SQCRET] Order #: [id number] FUTURE Follow-up and Disposition History for Encounter Date Provider Department Center 09/05/2024 [id number] Prescriptions as of 09/05/2024 - iv contrast (will be provided with radiology test) CT Chest ABD/PEL-Inject, intravenously, once for 1 dose.No [...] protocol in the CT contrast administration guidelines link. - enteric contrast (will be provided with radiology test) For CT CHESTABD/PEL W IVCON Routine order Administer, As Directed One Time Only, via Oral, Rectal, both Oral and Rectal, Enteric Tube, Stoma or Indwelling Catheter, Enteric Contrast as designated per enteric contrast guidelines - iv contrast (will be provided with radiology test) CT ABD/PEL -Inject, intravenously, once for 1 dose.No IV access, [...] protocol in the CT contrast administration guidelines link. - enteric contrast (will be provided with radiology test) For CT ABD/PEL W IVCON Routine order Administer, As Directed One Time Only, via Oral, Rectal, both Oral and Rectal, Enteric Tube, Stoma or Indwelling Catheter, Enteric Contrast as designated per enteric contrast guidelines - iv contrast (will be provided with radiology test) CT Chest W -Inject, intravenously, once for 1 dose.No IV access, [...] protocol in the CT contrast administration guidelines link. - amLODIPine (NORVASC) 5 mg tablet Take 5 mg by mouth once daily. - warfarin (COUMADIN) 2 mg tablet Take 2 mg by mouth once daily. 2mg Sunday thru Sunday - lisinopril (ZESTRIL, PRINIVIL) 20 mg tablet Take 40 mg by mouth once daily. - acetaminophen (TYLENOL) 500 mg tablet Take 500 mg by mouth every 8 hours as needed. - metoprolol succinate XL, long acting, 50 mg 24 hr tablet Take 50 mg by mouth once daily. 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) (HCC) [D70.2] 08/19/2012 03/04/2014 Anxiety [F41.9] 03/04/2014 Hypokalemia [E87.6] 02/03/2015 Stage 3a chronic kidney disease (HCC) [N18.31] 02/07/2023 Encounter Status:Closed by JULIA MCCARTY on 09/05/24 COMP METAB 2000 PNL SERPL Collected: 9:38 AM Status: F Source: [facility] Order Comment: Specimen Type : BLOOD SPECIMEN Ordering Facility: [facility] Address: [address] [place] [address] TYPE CODE TESTS RESULT OUT OF RANGE REFERENCE UNITS LAB 2885-2(LOINC) Prot SerPl-mCnc 6.4 6.3-8.0 g/dL LAB 1751-7(LOINC) Albumin SerPl-mCnc 4.4 3.9-4.9 g/dL LAB 39273-9(LOINC) Calcium SerPl-mCnc 9.4 8.5-10.2 mg/dL LAB 1975-2(LOINC) Bilirub SerPl-mCnc 0.5 0.2-1.3 mg/dL LAB 6768-6(LOINC) ALP SerPl-cCnc 100 38-113 U/L LAB 1920-8(LOINC) AST SerPl-cCnc 14 14-40 U/L LAB 1742-6(LOINC) ALT SerPl-cCnc 12 10-54 U/L LAB 2345-7(LOINC) Glucose SerPl-mCnc 124 High 74-99 mg/dL Result Comment: The [place] Diabetes Association (ADA) provides guidance for cutoff values for fasting glucose and random glucose. The ADA defines fasting as no caloric intake for at least 8 hours. Fasting plasma glucose results between 100 to 125 mg/dL indicate increased risk for diabetes (prediabetes). Fasting plasma glucose results greater than or equal to 126 mg/dL meet the criteria for diagnosis of diabetes. In the absence of unequivocal hyperglycemia, results should be confirmed by repeat testing. In a patient with classic symptoms of hyperglycemia or hyperglycemic crisis, random plasma glucose results greater than or equal to 200 mg/dL meet the criteria for diagnosis of diabetes. Reference: Standards of Medical Care in Diabetes 2016, [place] [employer] Association. Diabetes Care. 2016.39(Suppl 1). LAB 3094-0(LOINC) BUN SerPl-mCnc 16 9-24 mg/ dL LAB 2160-0(LOINC) Creat SerPl-mCnc 1.17 0.73-1.22 mg/dL LAB 2951-2(LOINC) Sodium SerPl-sCnc 142 136-144 mmol/L LAB 2823-3(LOINC) Potassium SerPl-sCnc 3.7 3.7-5.1 mmol/L LAB 2075-0(LOINC) Chloride SerPl-sCnc 102 98-107 mmol/L LAB 2028-9(LOINC) CO2 SerPl-sCnc 29 22-30 mmo l/L LAB 36985-9(LOINC) Anion Gap SerPl-sCnc 11 8-15 mmol/L LAB 90201-2(LOINC) Creatinine + eGFR Pnl SerPlBld 67 >=60 mL/min/1 .73m??? Result Comment: Estimated Gl omerular Filtration Rate (eGFR) is calculated using the 2020 CKD-EPI creatinine equation. This equation utilizes serum creatinine, sex, and age as parameters. The creatinine assay has traceable calibration to isotope dilution-mass spectrometry. Refer to KDIGO guidelines for clinical interpretation. In patients with unstable renal function, e.g. those with acute kidney injury, the eGFR may not accurately reflect actual GFR. Performed By: #### 27667-6, 2532-0, 3084-1 #### [facility] CLIA [id number] [address] [place] [address] [place] LDH SERPL-CCNC Collected: 5 9:38 AM Status: F Source: [facility] Order Comment: Specimen Type : BLOOD SPECIMEN Ordering Facility: [facility] Address: [address] [place] [address] TYPE CODE TESTS RESULT OUT OF RANGE REFERENCE UNITS LAB 2532-0(LOINC) LDH SerPl-cCnc 167 135-225 U/L Result Comment: Hemolysis pr esent. The origin of the hemolysis, in vitro versus an in vivo hemolytic process, cannot be distinguished via this assay alone. In vitro hemolysis may lead to non-physiological (spurious) elevation in lactate dehydrogenase (LDH) results. The result should be interpreted in context of the clinical setting and other test results. Suggest reorder as clinically indicated. Performed By: #### 47692-0, 2532-0, 3084-1 #### [facility] CLIA [id number] [address] URATE SERPL-MCNC Collected: 09/05/2024 9:38 AM Statu s: F Source: [facility] Order Comment: Specimen Type : BLOOD SPECIMEN Ordering Facility: [facility] Address: [address] [place] [address] TYPE CODE TESTS RESULT OUT OF RANGE REFERENCE UNITS LAB 3084-1([facility]) Urate SerPl-mCnc 7.6 4.0-8.1 mg/dL Performed By: #### 14826-3, 2532-0, 3084-1 #### [facility] CLIA [id number] [address] [place] [address] [place] CBC W AUTO DIFF BLD Collected: 09/05/2024 9:[address] atus: F Source: [facility] Order Comment: Specimen Type : BLOOD SPECIMEN Ordering Facility: [facility] Address: [address] [place] [address] TYPE CODE TESTS RESULT OUT OF RANGE REFERENCE UNITS LAB 6690-2(LOINC) WBC # Bld Auto 6.91 3.70-11.00 k/uL LAB 789-8(INC) RBC # Bld Auto 5.06 4.20-6.00 m/ uL LAB 718-7(LOINC) Hgb Bld-mCnc 15.0 13.0-17.0 g/dL LAB 4544-3(LOINC) Hct VFr Bld Auto 44.5 39.0-51.0 % LAB 787-2(LOINC) MCV RBC Auto 87.9 80.0-100.0 fL LAB 785-6(LOINC) MCH RBC Qn Auto 29.6 26.0-34.0 p g LAB 786-4(LOINC) MCHC RBC Auto-mCnc 33.7 30.5-36.0 g/dL LAB 62177-7(LOINC) RDW RBC-Rto 13.9 11.5-15.0 % LAB 777-3(LOINC) Platelet # Bld Auto 214 150-400 k/uL LAB 76308-5([facility]) PMV Bld Auto 10.7 9.0-12.7 fL LAB 770-8(INC) Neutrophils/leuk NFr Bld Auto 69.1 % LAB 751-8(INC) Neutrophils # Bld Auto 4.78 1.45-7.50 k/uL LAB 736-9([facility]) Lymphocytes/leuk NFr Bld Auto 18.7 % LAB 731-0([facility]) Lymphocytes # Bld Auto 1.29 1.00-4.00 k/uL LAB 5905-5([facility]) Monocytes/leuk NFr Bld Auto 8.4 % LAB 742-7([facility]) Monocytes # Bld Auto 0.58 <0.87 k/uL LAB 713-8([facility]) Eosinophil/leuk NFr Bld Auto 2.6 % LAB 711-2([facility]) Eosinophil # Bld Auto 0.18 <0.46 k/uL LAB 706-2([facility]) Basophils/leuk NFr Bld Auto 0.9 % LAB 704-7([facility]) Basophils # Bld Auto 0.06 <0.11 k/uL LAB 28052-3([facility]) Imm Granulocytes/ruthie k NFr Bld Auto 0.3 % LAB 07474-3([facility]) Imm Granulocytes # Bld Auto <0.03 <0.10 k/uL LAB 55728-6([facility]) nRBC/100 WBC Bld-Rto 0.0 /100 WBC LAB 771-6([facility]) nRBC # Bld Auto <0.01 <0.01 k/u L LAB 15556-2([facility]) Differential method Bld Auto Performed By: #### 32846-5 # ### [facility] CLIA [id number] [address] [place] [address] OF [facility] PROGRESS Observed: 09/05/2024 9:34 AM Status: COMPLETED Source: [facility] HNO ID: [id number] Author: JULIA MCCARTY APRN.HANDLE AND VENT MACHINE OPERATOR Service: ? Author Type: Nurse Practitioner Type: Progress Notes Filed: 09/05/2024 10:16 Note Text: Chief Complaint Patient presents with: Established Patient HPI: Sirisha De Leon is a 69 year old male who presents here today for follow up follicular lymphoma. Per Dr. Mayer's previous note: H/o HTN and atrial fibrillation (on Coumadin). Over the year prior to initial presentation/evaluation for lymphoma, he noted he had been feeling more fatigued. 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 Completed 10/17/12. Received maintenance rituximab. No new concerns today. Appetite:"Good." Wt. up 3# Energy level:"Good." Denies fevers or recent illness. Resp:denies cough or sob Cardiac:denies chest pain/palpitations GI:denies abd pain, n/v, moving bowels regularly :denies dysuria/hematuria Extrem:chronic b/l hip pain Neuro:denies symptoms of neuropathy Skin:denies rashes Heme:denies bleeding The ROS is otherwise negative. Past medical history, appointments, medications, allergies reviewed. No changes. EXAM: BP 116/76 Pulse 63 Temp 36.3 ?C (97.4 ?F) (Temporal) Wt 108.8 kg (239 lb 13.8 oz) SpO2 97% BMI 36.88 kg/m? APPEARANCE Well appearing, alert, in no acute distress, well-hydrated, well nourished. HEART RRR with normal S1 and S2, no murmurs LUNG clear to auscultation LYMPH NODES No cervical lymphadenopathy, No supraclavicular lymphadenopathy, and No axillary lymphadenopathy. ABDOMEN bowel sounds normoactive, soft, non-tender, non-distended EXTREMITIES trace edema BLE NEURO Awake, alert and oriented x 3, Normal gait, and No involuntary motions. SKIN Skin color, texture, turgor normal, no suspicious rashes or lesions LABS: Latest Ref Rng 01/31/2023 08/06/2023 02/28/2024 09/05/2024 WBC 3.70 - 11.00 k/uL 10.24 7.08 8.41 6.91 RBC 4.20 - 6.00 m/uL 5.41 4.96 4.89 5.06 Hemoglobin 13.0 - 17.0 g/dL 15.7 14.9 14.0 15.0 Hematocrit 39.0 - 51.0 % 47.1 43.9 42.7 44.5 MCV 80.0 - 100.0 fL 87.1 88.5 87.3 87.9 MCH 26.0 - 34.0 pg 29.0 30.0 28.6 29.6 MCHC 30.5 - 36.0 g/dL 33.3 33.9 32.8 33.7 RDW-CV 11.5 - 15.0 % 14.3 13.6 14.0 13.9 Platelet Count 150 - 400 k/uL 198 201 212 214 MPV 9.0 - 12.7 fL 11.0 10.6 10.9 10.7 Neut% % 72.6 68.1 63.5 69.1 Abs Neut (ANC) 1.45 - 7.50 k/uL 7.44 4.82 5.35 4.78 Lymph% % 14.3 19.2 18.1 18.7 Abs Lymph 1.00 - 4.00 k/uL 1.46 1.36 1.52 1.29 Schley% % 8.1 9.6 10.5 8.4 Abs Schley <0.87 k/uL 0.83 0.68 0.88 (H) 0.58 Eosin% % 3.9 2.0 6.7 2.6 Abs Eosin <0.46 k/uL 0.40 0.14 0.56 (H) 0.18 Baso% % 0.6 0.7 0.8 0.9 Abs Baso <0.11 k/uL 0.06 0.05 0.07 0.06 Immature Gran % % 0.5 0.4 0.4 0.3 IMMATURE GRANS (ABS) <0.10 k/uL 0.05 0.03 0.03 <0.03 NRBC /100 WBC 0.0 0.0 0.0 0.0 Absolute nRBC <0.01 k/uL <0.01 <0.01 <0.01 <0.01 DTYPE Auto Auto Auto Auto CMP/LD/Uric acid: Pending ASSESSMENT/PLAN: 1. Encounter for follow-up surveillance of lymphoma - ICD9: V67.9, V10.79, ICD10: Z08, Z85.[address] Mayer's previous note: Assessment: -Pathology at [facility] consistent with dx grade 1-2 disease, but had presented as aggressive disease. -Tolerated chemotherapy very well. -Tolerated maintenance rituximab well without noticeable side effect. -No concerning symptoms or exam findings at this time. -Reviewed labs. Improved Cr. -CTs stable mild RP adenopathy. Plan: -CBC/BMP/Liver panel/LDH then OV in about 6 months. -Plan CTs in about a year. - No concerning findings on exam. - Tolerated previous therapy well. - Reviewed CBC with pt. - CMP/LD/Uric acid pending. - Continue follow up with PCP for routine care. - CT's in 6 months. - Follow up after above with CBC/CMP/LD/Uric acid. - Pt. aware to call office with any questions/concerns. The patient indicates understanding of these issues and agrees with the plan. All documentation from previous visit of 08/06/23 AND 03/06/24-Dr. Mayer was copied and pasted, documentation has been reviewed and edited as necessary for today's visit. Julia Mccarty, POLO.HANDLE AND VENT MACHINE OPERATOR ALLERGIES DATE TYPE / CODE NAME / CODE REACTION SEVERITY SOURCE 09/04/2012 [facility]/[id number] 006(SNOMED CT) SEASONAL ALLERGIES OTHER: SEE C [facility] ENCOUNTERS ADMIT/DISCHARGE ACCOUNT NUMBER ADMITTING ENCOUNTER CLASS LOC ATION SOURCE 04/19/2025/ 5 [id number] [facility] HospitalBuild ing:WOUCA [facility] 03/16/2025/ 5 [id number] Ambulatory [facility] HospitalBuild ing:WOOR [facility] 03/16/2025 [id number] [facility] HospitalBuild ing:WOR2 [facility] 01/06/2025/ 5 [id number] Ambulatory [facility] HospitalBuild ing:WOUC [facility] 09/05/2024/ 5 [id number] Ambulatory [facility] HospitalBuild ing:WOHE [facility] 09/05/2024/ 5 [id number] Ambulatory [facility] HospitalBuild ing:WOL2 [facility] PAYERS ENCOUNTER GUARANTOR PAYER SUBSCRIBER SOURCE 04/19/2025 Primary Insuranc e:MEDICARE A AND BPolicy Number: [id number] Date:8000-47-96Cfgv Name:Jani SIRISHA B WILLIE: [id number] [place], [place] [id number] [place] [address] 04/19/2025 Secondary Insura nce:AETNA MEDICARE SUPPLEMENTPolicy Number: [id number] Date:3670-81-57Mnml Name:Yaneli TAPIA: [id number] [place], [place] [address] [place] [address] 03/16/2025 Primary Insuranc e:MEDICARE A AND BPolicy Number: [id number] Date:4956-79-40Fwtt Name:Jani SIRISHA B WILLIE: [id number] [place], [place] [address] [place] [address] 03/16/2025 Secondary Insura nce:AETNA MEDICARE SUPPLEMENTPolicy Number: [id number] Date:7150-90-60Pxwr Name:Yaneli SIRISHA Jayleen WILLIE: [id number] [place] [address] [facility] 03/16/2025 Primary Insuranc e:MEDICARE A AND BPolicy Number: [id number] Date:1883-08-41Kgpb Name:Jani Clemens WILLIE: [id number] [place] [address] [facility] 03/16/2025 Secondary Insura nce:AETNA MEDICARE SUPPLEMENTPolicy Number: [id number] Date:4434-92-89Zpfb Name:Yaneli DE LEONDOB: [id number] [place] [address] [facility] 01/06/2025 Primary Insuranc e:MEDICARE A AND BPolicy Number: [id number] Date:8127-23-25Sumh Name:Jani DE LEONDOB: [id number] [place], [place] [address] [place] [address] 01/06/2025 Secondary Insura nce:AETNA MEDICARE SUPPLEMENTPolicy Number: [id number] Date:0326-15-70Tmam Name:Yaneli CONTRERASB: [id number] [facility] [facility]IM[facility]RI[facility], [place] [id number] [place] [address] 09/05/2024 Primary Insuranc e:MEDICARE A AND BPolicy Number: [id number] Date:3785-19-98Nlze Name:Jani DE LEONDOB: [id number] [place], [place] [address] [place] [address] 09/05/2024 Secondary Insura nce:AETNA MEDICARE SUPPLEMENTPolicy Number: [id number] Date:4293-59-97Nggh Name:Yaneli DE LEONDOB: [id number] [place] [address] [facility] 09/05/2024 Primary Insuranc e:MEDICARE A AND BPolicy Number: [id number] Date:1593-75-15Yhmf Name:Jani DE LEONDOB: [id number] [place], [place] [address] [place] [address] 09/05/2024 Secondary Insura nce:AETNA MEDICARE SUPPLEMENTPolicy Number: [id number] Date:4292-41-68Jkni Name:Yaneli DE LEONDOB: [id number] [facility] [facility]ENTER[facility]IM[facility], [place] [id number] [place] [address]
--- NOTE | 2025-04-28 13:20 | EKG12_ITS ---
Test Reason : PREOP Blood Pressure : */* mmHG Vent. Rate : 66 BPM Atrial Rate : 93 BPM P-R Int : * ms QRS Dur : 120 ms QT Int : 446 ms P-R-T Axes : * 235 42 degrees QTcB Int : 467 ms Atrial fibrillation Low voltage QRS Right bundle branch block Cannot rule out Inferior infarct , age undetermined Abnormal ECG Confirmed by Irving Blevins ([id number]), online editor BALA AVILEZ ([id number]) on 04/29/2025 7:13:39 AM Referred By: Norm Nj Confirmed By: Irving Blevins
[2025-04-28 14:08] LABS: Hematocrit 42.4 % (40-54); Hemoglobin 14.3 g/dL (13.0-16.5); Immature Granulocytes Count 0.040 X10^3/uL (0.0-0.0); Mean Corp Hgb Conc 33.7 g/dL (32-36); Mean Corpuscular Volume 88.3 fL (80-94); Mean Platelet Vol. 11.2 fl (6.2-12.0); NRBC Flagged by Analyzer 0 % (0-5); Platelet Count 215 K/mm3 (150-450); RBC Distribution Width CV 13.6 % (11.6-14.6); RBC Distribution Width SD 44.1 fl (35.1-43.9); Red Blood Count 4.80 M/mm3 (4.6-6.2); White Blood Count 8.3 K/mm3 (4.4-11.0)
[2025-04-28 17:02] LABS: Magnesium 2.3 mg/dL (1.5-2.2)
[2025-04-28 18:56] LABS: Albumin, Serum 4.5 g/dL (3.4-4.8); Anion Gap 14 (5-15); BUN 25 mg/dL (4-19); BUN/Creat Ratio 18.7 RATIO (10-20); Calcium,Total 9.2 mg/dL (7.6-11.0); Carbon Dioxide 22.6 mmol/L (21.0-32.0); Chloride 104 mmol/L (98-108); Glucose 100 mg/dL (70-99); Potassium 4.6 mmol/L (3.3-5.1)
--- NOTE | 2025-04-29 16:12 | PAT.ANESEVAL ---
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 When Was Last Pacemaker Check QUESTION #4 FULL TEXT: You/Your Family Experience fever (hyperthermia) with Anesthesia Last Oral Intake Last Oral intake: Last Oral Intake NPO since Meds taken in AM with sips of water? Meds patient instructed to take am of surgery PONV PONV - english and reading instructor: PONV - english and reading instructor Female No 04/22/25 13:23 HX of Motion Sickness No 04/22/25 13:23 HX of N/V After Surgery No 04/22/25 13:23 Non-Smoker Yes 04/22/25 13:23 Duration of Surgery greater No 04/22/25 13:23 than 60 minutes Number of Risk Factors 1 04/22/25 13:23 PONV Score Low Risk 04/22/25 13:23 Height & Weight Height & Weight: Anesthesia: Height & Weight Height 5 ft 8 in 01/16/25 14:27 Respiratory Assessment Respiratory Assessment - english and reading instructor: Respiratory Tract Infection Hx - english and reading instructor Hx Respiratory Tract Infection No 04/22/25 13:23 STOP Sleep Apnea STOP Sleep Apnea - english and reading instructor: STOP Sleep Apnea - english and reading instructor Hx Hypertension Yes: CONTROLLED WITH MED 04/22/25 13:23 Hx Sleep Apnea No 04/22/25 13:23 CPAP BIPAP Do you snore loudly (louder No 04/22/25 13:23 than talking or can be heard Do you often feel tired/ No 04/22/25 13:23 fatigued/ sleepy during daytime? Has anyone observed you stop No 04/22/25 13:23 breathing during sleep? STOP Results Negative 04/22/25 13:23 QUESTION #5 FULL TEXT : Do you snore loudly (louder than talking or can be heard through closed doors)? 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 Specify any problems Hx of Preganancy in last 3 N/A 04/22/25 13:23 Months Nurse Filling Out Transfusion VCHRISTIN 04/22/25 13:23 & Questions: Date: 04/22/25 04/22/25 13:23 Time: 13:28 04/22/25 13:23 Patient unable to answer at this time (ie. confused, unrespo /Reproduction History /Reproductive History - english and reading instructor: /Reproductive Hx- english and reading instructor Hx Now No 04/22/25 13:23 Gestational Age (in weeks): EDC: Hx Hx Para Hx Section SAB No 04/22/25 [facility] History (Updated 04/22/25 @ 13:23 by Aylin Briggs) Shortness of breath on exertion Wears glasses Cancer Anxiety Arthritis Non-smoker History of edema Hypertension History of atrial fibrillation History of stress test History of echocardiogram Cardiology follow-up encounter Hyperlipidemia Obesity Essential (primary) hypertension Lymphoma Persistent atrial fibrillation Renal insufficiency Home Medications Medication Instructions Recorded Last Taken Type acetaminophen 500 mg tablet 500 mg PO Q6H PRN pain 02/29/24 Unknown History lorazepam 0.5 mg tablet 0.5 mg PO QDAY PRN anxiety 01/16/25 Unknown History warfarin 4 mg tablet 4 mg PO .COMPLEX BLOOD THINNER 01/16/25 Unknown History amlodipine 5 mg tablet 5 mg PO QHS HEART 04/22/25 Unknown History lisinopril 40 mg tablet 40 mg PO QHS HYPERTENSION 04/22/25 Unknown History metoprolol succinate 50 mg 50 mg PO QHS HYPERTENSION 04/22/25 Unknown History tablet,extended release 24 hr sertraline 50 mg tablet 50 mg PO DAILY 04/22/25 Unknown History Allergy/AdvReac Type Severity Reaction Status Date / Time Seasonal Allergies: Uncoded AdvReac Other Verified 01/16/25 14:31 (environmental) Family History Grandmother Hypertension Father FH: aortic aneurysm Surgical History (Updated 04/22/25 @ 13:23 by Aylin Briggs) History of lumbar fusion History of wisdom tooth extraction History of cardioversion (05/15/16) History of renal stent History of right inguinal hernia repair Social History Smoking Status: Never smoker alcohol intake: never substance use type: does not use caffeine: Yes Type: coffee Number of servings: 1 what type of physical activity do you participate in: none seatbelt use: always do you feel safe at home: Yes Audit: Pertinent Findings Pertinent Findings EKG Perinent findings: EKG 04/28/2025. A-fib. Right bundle branch block. 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 From a cardiac standpoint the patient is doing well. Echo 11/06/2020 demonstrated normal left ventricular systolic function, with EF 65% Recommendation Anesthesia Recommendation Anesthesia recommendation: OPTIMIZED for anesthesia
--- NOTE | 2025-05-17 20:43 | PCM.HP.BLA ---
History and Physical History and Physical Patient Name: Blas RouseDOB: 1955 From: DATE OF PRE-OPERATIVE EXAM: 05/11/2025 DATE OF SURGERY: 05/18/2025 SCHEDULED PROCEDURE: Right robotic total hip arthroplasty anterior approach HISTORY OF PRESENT ILLNESS: Patient is a 70-year-old male presenting for preoperative visit for painful right hip. Patient states that his right hip has been painful since 2019. Patient states that his pain is intermittent, aching, sharp. Patient states that doing stairs, walking any distance, bending down make his pain worse. Patient states that sitting, resting, elevating the leg helps to alleviate his pain. Patient states that he is no longer able to dress himself or tie his shoes without difficulty because of the pain. Patient states that he no longer feels safe climbing a ladder because of the pain. Patient states that he has tried home exercises with no help. Patient states he has tried rest, elevation, physical therapy with help. Patient states he has not tried ice, heat, cortisone injection, weight loss, compression, chiropractor, gel injections, oral medications. Patient denies any previous surgeries on the affected joint. Patient states he does have to use a walker when he is walking long distances. REVIEW OF SYSTEMS: Review Of Systems: Constitutional: Denies change in appetite, fever and weight change. Cardiovasular: Reports irregular heartbeat, but denies chest pain and heart murmur. Respiratory: Reports cough and shortness of breath, but denies pneumonia, tuberculosis and wheezing. Gastrointestinal: Denies constipation, diarrhea, heartburn, nausea, rectal itching, bloody stools and vomiting. Genitourinary: . (F Genital Sx) . (Urinary Sx) Musculoskeletal: Reports trouble walking, but denies leg swelling, pain and weakness. Skin: Denies Raynaud's, history of shingles and tattoo. Neurological: Denies ambulatory dysfunction, dizziness, numbness/tingling and tremor. Psychiatric: Reports anxiety, but denies insomnia and stress. Hematologic/Lymphatic: Denies anemia, bleeding/bruising tendency and past transfusion. Reviewed, no changes. PAST MEDICAL HISTORY: Advance Care Plan: No Advance Directives Effective Date: 03/17/2024 Past Medical History: Medical Problems: AFib, Arthritis Cancer - Lymphoma High Blood Pressure Accidents: None Surgical Hx: Heart Ablation - (2017) [facility] Dr. Bae Hernia Repair - (1968) [facility] Dr. Back Lumbar Fusion - (2023) [facility] Dr. Combs Anesthesia Complications: None Assistive Devices: None Reviewed, no changes. SOCIAL HISTORY: Social History: Marital: Single.Occupation: Retired.Work Status: Retired.Hand Dominance: Right-handed. Personal Habits: Cigarette Use: Never Smoked Cigarettes.Smokeless Tobacco: Never Used Smokeless Tobacco.E-Cigarette Use: Never used.Alcohol: Denies use.Drug Use: Denies Use.Enjoy Exercising: Never Exercises. Reviewed, no changes. VITALS: Ht: 68" Wt: 238lb Wt k.[id number] BMI: 36.2 BP: 132/76 Pulse: 61 Resp: 18 T: 96.9 T: 36.1C Pain Level: 3/10 O2SatR: 96 ALLERGIES: No Known Drug Allergy MEDICATIONS: Lisinopril 40 mg 1 by mouth every day, Metoprolol Succinate ER 50 mg 1 by mouth every day, Amlodipine Besylate 5 mg 1 by mouth every day, Warfarin Sodium 4 mg 1 tablet sunday and sunday, Warfarin Sodium 2 mg 1 tablet sunday, sunday, sunday, , and sunday, Acetaminophen , Lorazepam 0.5 mg, Sertraline HCL 50 mg 1 by mouth every day PRE-OP EXAM: General appearance:NORMAL Other: Eyes: Conjunctivae and lids: NORMAL Pupils: ERR Ears, Nose, Mouth, and Throat: NORMAL Other: Inspection of lips, teeth and gums: NORMAL Other: Neck: Examination of neck: no masses noted. Respiratory: Assessment of respiratory effort: NORMAL Other: Auscultation of lungs: clear to auscultation no wheezes, rhonchi or rales. Cardiovascular: Auscultation of heart: regular rate and rhythm, no murmurs, gallops or rubs. Exam of carotid arteries: NORMAL Other: Gastrointestinal: Exam of abdomen: soft, nontender, nondistended bowel sounds present. Lymphatic: Palpation of nodes in neck: NORMAL Other: Palpation of nodes in Axillae: NORMAL Other: Neurological: see below Psychiatric: Orientation to time, place and person: NORMAL Other: Mood and affect: NORMAL Other: PHYSICAL EXAMINATION: Musculoskeletal: Right hip flexion limited to 50 degrees. Left hip flexion limited to 50 degrees. Bilateral hip extension contractures of 20 degrees noted. IMAGING STUDIES: Complete series of the right hip with AP pelvis, AP hip and crossfire lateral reviewed today reveal joint space narrowing, subchondral sclerosis and osteophyte formation consistent with severe stage IV [id number] osteoarthritis with large cam lesion and acetabular osteophyte causing impingement. Complete series of the left hip with AP pelvis, AP hip and crossfire lateral reviewed today reveal joint space narrowing, subchondral sclerosis and osteophyte formation consistent with severe stage IV [id number] osteoarthritis with large cam lesion and acetabular osteophyte causing impingement. IMPRESSION: Atrial fibrillation Lymphoma Hypertension History of heart ablation Bilateral primary osteoarthritis of the hips Pain left hip Pain right hip Obesity PLAN: The surgeon did discuss and review all treatment options with the patient including surgical versus nonsurgical. At this time the patient does wish to proceed with the above-stated procedure. Potential risks benefits and complications of the procedure were discussed and reviewed with the patient including but not limited to , infection, nerve and blood vessel damage, persistent pain, numbness, tingling, paresthesias, blood clot, pulmonary embolism, in the requirement for possible further surgery. Patient expressed full understanding. Has no further questions for the doctor. Does agree to proceed with the above-stated procedure, and has signed the appropriate surgery consent form. DVT prophylaxis: Patient will resume normal dose of warfarin following surgery. Patient will be wearing ANTONIO hose for 2 weeks postoperatively. Pain medication: Patient will be taking Tylenol 1000 mg every 8 hours. Patient will be taking as needed oxycodone. Patient will be avoiding anti-inflammatories due to GFR less than 60 and use of warfarin. Patient will be taking famotidine postoperatively. Patient was educated on senna for postoperative constipation. ___ I have re-examined the patient. There are no clinical changes since date of exam. ___ See progress notes for changes. ___ Dictated on admission Date: Time: Signature:
[2025-05-18] VITALS (16 sets, daily range): BP systolic 90–155; BP diastolic 44–78; PULSE 58–72; RESP 12–18; TEMP 17.2–36.8; O2SAT 93–99; BMI 35.8
[2025-05-18] MEDS: LR 1,000 ML - BOLUS PREOP 999 ML IV (11:05)
[2025-05-18] MEDS: Magnesium 1 GM over 15 mins IV (11:06)
--- NOTE | 2025-05-18 11:28 | PCM.PRE.AN2 ---
ASA Classification* ASA Classification ASA Classification: 3 Assessment & Plan Anesthesia* Anesthesia Assessment Anesthesia Assessment: Discussed sedation and/or anesthesia options, risks, benefits, and alternatives with patient/parents/legal guardian/POA. Questions invited. The patient/parents/legal guardian/POA seems to understand and agrees to proceed with anesthesia plan. Reviewed the physical assessment, medical history, allergy history and patient home medications list prior to surgery/procedure/anesthetic and documented any changes. Performed airway and anesthesia risk assessments. Anesthesia Type Anesthesia Type: Spinal History Source History Obtained from:: Patient and Chart (Patient off warfrin since last Sunday. INR 1.3 today ) Anesthesia Focused Assessment* Temperature: 97.0 F Pulse Rate: 70 Blood Pressure: 155/78 Respiratory Rate: 18 Pulse Ox: 96 Airway Assessment Mouth opens: >3 cm Mallampati Score: III Labs Anesthesia Preop lab: CBC WBC, (4.4-11.0) 8.3 K/mm3 04/28/25, 13:41 RBC, (4.6-6.2) 4.80 M/mm3 04/28/25, 13:41 Hgb, (13.0-16.5) 14.3 g/dL 04/28/25, 13:41 Hct, (40-54) 42.4 % 04/28/25, 13:41 Plt Count, (150-450) 215 K/mm3 04/28/25, 13:41 CHEMISTRY Potassium, (3.3-5.1) 4.6 mmol/L 04/28/25, 13:41 Sodium, (133-145) 141 mmol/L 04/28/25, 13:41 Magnesium, (1.5-2.2) 2.3 mg/dL H 04/28/25, 13:41 Phosphorus, (2.5-4.9) 3.8 mg/dL 07/05/12, 17:45 BUN, (4-19) 25 mg/dL H 04/28/25, 13:41 Creatinine, (0.70-1.20) 1.35 mg/dL H 04/28/25, 13:41 Glucose, (70-99) 100 mg/dL H 04/28/25, 13:41 POC Glucose, (74-106) 104 mg/dL 01/02/24, 10:30 TSH, (0.358-3.74) 2.03 uIU/mL 06/03/12, 11:38 COAG PT, (11.7-14.9) 25.7 SECONDS H 02/13/25, 16:14 Pre-Assessment Diagnosis/Proposed Procedure Planned Operative Procedure(s): (R) Total Hip Replacement Robotic Arm Assist Anesthesia History 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 When Was Last Pacemaker Check QUESTION #4 FULL TEXT: You/Your Family Experience fever (hyperthermia) with Anesthesia Last Oral Intake Last Oral intake: Last Oral Intake NPO since 08:00 05/18/25 11:00 Meds taken in AM with sips of water? Meds patient instructed to take am of surgery PONV PONV - skill training program coordinator: PONV - skill training program coordinator Female No 04/22/25 13:23 HX of Motion Sickness No 04/22/25 13:23 HX of N/V After Surgery No 04/22/25 13:23 Non-Smoker Yes 04/22/25 13:23 Duration of Surgery greater No 04/22/25 13:23 than 60 minutes Number of Risk Factors 1 04/22/25 13:23 PONV Score Low Risk 04/22/25 13:23 Height & Weight Height & Weight: Anesthesia: Height & Weight Height 5 ft 8 in 05/18/25 11:00 Weight: 106.9 kg 05/18/25 11:00 Body Mass Index (BMI) 35.8 05/18/25 11:00 Respiratory Assessment Respiratory Assessment - skill training program coordinator: Respiratory Tract Infection Hx - skill training program coordinator Hx Respiratory Tract Infection No 04/22/25 13:23 STOP Sleep Apnea STOP Sleep Apnea - skill training program coordinator: STOP Sleep Apnea - skill training program coordinator Hx Hypertension Yes: CONTROLLED WITH MED 04/22/25 13:23 Hx Sleep Apnea No 04/22/25 13:23 CPAP BIPAP Do you snore loudly (louder No 04/22/25 13:23 than talking or can be heard Do you often feel tired/ No 04/22/25 13:23 fatigued/ sleepy during daytime? Has anyone observed you stop No 04/22/25 13:23 breathing during sleep? STOP Results Negative 04/22/25 13:23 QUESTION #5 FULL TEXT : Do you snore loudly (louder than talking or can be heard through closed doors)? 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 Specify any problems Hx of Preganancy in last 3 N/A 04/22/25 13:23 Months Nurse Filling Out Transfusion VCHRISTIN 04/22/25 13:23 & Questions: Date: 04/22/25 04/22/25 13:23 Time: 13:28 04/22/25 13:23 Patient unable to answer at this time (ie. confused, unrespo /Reproduction History /Reproductive History - skill training program coordinator: /Reproductive Hx- skill training program coordinator Hx Now No 04/22/25 13:23 Gestational Age (in weeks): EDC: Hx Hx Para Hx Section SAB No 04/22/25 13:23 Active Medications Active Medications: Current Medications Generic Name Dose Route Start Last Admin Trade Name Freq PRN Reason Stop Dose Admin Acetaminophen 1,000 mg 05/18/25 12:00 05/18/25 11:06 Acetaminophen 500 Mg Tablet PO 05/18/25 12:01 1,000 mg PREOP ONE Administration Acetaminophen 1,000 mg 05/18/25 14:00 Acetaminophen 500 Mg Tablet PO Q8 LEVI Tranexamic Acid 2,000 mg/ 0 mg 05/18/25 12:00 Sodium Chloride 100 ml OPERA.SITE 05/18/25 12:01 X1 ONE Sodium Chloride 78.9 ml/ 0 ml 05/18/25 12:00 Ropivacaine 200 mg/ IV 05/18/25 12:01 Epinephrine HCl 0.6 mg/ INTRAOP ONE Morphine Sulfate 5 mg Dexamethasone Sodium Phosphate 10 mg 05/18/25 12:00 Dexamethasone 10 Mg/Ml Vial IV 05/18/25 12:01 INTRAOP ONE Enteral Nutritional Formula 237 ml 05/18/25 08:00 Ensure Surgery 237 Ml Liquid PO TIDCM LEVI Famotidine 20 mg 05/18/25 10:00 Famotidine 20 Mg Tablet PO DAILY LEVI Gabapentin 600 mg 05/18/25 12:00 05/18/25 11:06 Gabapentin 600 Mg Tablet PO 05/18/25 12:01 600 mg PREOP ONE Administration Lactated Ringer's 1,000 mls @ 999 mls/hr 05/18/25 12:00 05/18/25 11:05 IV 05/18/25 13:00 999 mls/hr .Q1H1M LEVI Administration Cefazolin Sodium 2 gm/ Sodium 110 mls @ 150 mls/hr 05/18/25 12:00 Chloride IV 05/18/25 12:43 INTRAOP ONE Lactated Ringer's 1,000 mls @ 999 mls/hr 05/18/25 12:00 IV 05/18/25 13:00 .Q1H1M LEVI Lactated Ringer's 1,000 mls @ 125 mls/hr 05/18/25 12:00 IV 05/18/25 19:59 .Q8H LEVI Magnesium Sulfate 1 gm/ 102 mls @ 408 mls/hr 05/18/25 12:00 05/18/25 11:06 Dextrose IV 05/18/25 12:14 408 mls/hr PREOP ONE Administration Cefazolin Sodium 1 gm in 50 mls @ 100 mls/hr 05/18/25 07:05 IV 05/18/25 15:34 Q8H LEVI Insulin Human Lispro 1 - 6 unit 05/18/25 12:00 Insulin Lispro 100 Unit/Ml Insuln.Pen SC 05/18/25 18:00 Q4H PRN PRN BG>/= 180, SEE PROTOCOL Protocol Morphine Sulfate 2 - 4 mg 05/18/25 07:02 Morphine 2 Mg/Ml Syringe IV Q2H PRN PRN Pain Score 4-10 Ondansetron HCl 4 mg 05/18/25 07:02 Ondansetron 4 Mg/2 Ml Vial IV Q8H PRN PRN NAUSEA Oxycodone HCl 5 - 10 mg 05/18/25 07:02 Oxycodone 5 Mg Tablet PO Q4H PRN PRN Pain Score 4-10 Promethazine HCl 12.5 mg 05/18/25 07:02 Promethazine 25 Mg/Ml Syringe IM Q6H PRN PRN NAUSEA/VOMITING Protocol Senna/Docusate Sodium 2 tablet 05/18/25 10:00 Senna/Docusate Sodium 1 Tablet PO BID [facility] Warfarin Sodium 4 mg 05/19/25 06:00 Warfarin (Pbkc) 4 Mg Tablet PO .COMPLEX LEVI PFSH Medical History Shortness of breath on exertion Wears glasses Cancer Anxiety Arthritis Non-smoker History of edema Hypertension History of atrial fibrillation History of stress test History of echocardiogram Cardiology follow-up encounter Hyperlipidemia Obesity Essential (primary) hypertension Lymphoma Persistent atrial fibrillation Renal insufficiency Home Medications Medication Instructions Recorded Last Taken Type acetaminophen 500 mg tablet 500 mg PO Q6H PRN pain 02/29/24 05/17/25 History lorazepam 0.5 mg tablet 0.5 mg PO QDAY PRN anxiety 01/16/25 Unknown History warfarin 4 mg tablet 4 mg PO .COMPLEX BLOOD THINNER 01/16/25 05/12/25 History amlodipine 5 mg tablet 5 mg PO QHS HEART 04/22/25 05/17/25 History lisinopril 40 mg tablet 40 mg PO QHS HYPERTENSION 04/22/25 05/17/25 History metoprolol succinate 50 mg 50 mg PO QHS HYPERTENSION 04/22/25 05/17/25 History tablet,extended release 24 hr sertraline 50 mg tablet 50 mg PO DAILY 04/22/25 Unknown History cholecalciferol (vitamin D3) 25 25 mcg PO DAILY 05/18/25 Unknown History mcg (1,000 unit) capsule (Vitamin D3) Allergy/AdvReac Type Severity Reaction Status Date / Time Seasonal Allergies: Uncoded AdvReac Other Verified 05/18/25 10:57 (environmental) Family History Grandmother Hypertension Father FH: aortic aneurysm Surgical History History of lumbar fusion History of wisdom tooth extraction History of cardioversion (05/15/16) History of renal stent History of right inguinal hernia repair Social History Smoking Status: Never smoker alcohol intake: never substance use type: does not use caffeine: Yes Type: coffee Number of servings: 1 what type of physical activity do you participate in: none seatbelt use: always do you feel safe at home: Yes Addt'l Information Additional Findings: EKG Chronic Afib and RBBB Review of Systems (Anesthesia) ROS Narrative System reviewed and no additional complaints, except as documented. Physical Exam Const alert and oriented x3 Resp normal respiratory effort and normal air movement Cardio regular rate Cardio Narrative: Irregular Neuro oriented x3 and moves all extremities
--- NOTE | 2025-05-18 11:37 | RAD_ITS ---
PROCEDURE: HIP 1 VIEW WITH PELVIS 05/18/2025 REASON FOR EXAM: ANTERIOR HIP TECHNIQUE: Procedure Code: [id number] Modality: DX Procedure: HIP 1 VIEW WITH PELVIS Laterality: Left COMPARISON: Pelvis and bilateral hips, 03/10/2024. FINDINGS: 4 images were obtained intraoperatively with during left total hip arthroplasty. Fluoro time: 9.3 seconds. Cumulative dose: 1.46 mGy. RAD/Hip 1 view with Pelvis IMPRESSION: As per findings. Reading Location: [place] [id number]
[2025-05-18] MEDS: Midazolam 2 MG/2 ML Syringe IV (11:55)
[2025-05-18] MEDS: LR 1,000 ML - 125 ML/HR (POST BOLUS) POST OP IV (12:00)
[2025-05-18] MEDS: Cefazolin 1 GM/5 ML Vial 2 GM IV (12:11)
[2025-05-18] MEDS: Lidocaine 1% (5 ml sdv) 5 ML Vial IV (12:15)
[2025-05-18] MEDS: PROPOFOL 27.08 MG IV (12:56)
[2025-05-18] MEDS: TXA 2000mg in NS 100ml (Placed in Wound) OPERA.SITE (13:41)
[2025-05-18] MEDS: Joint Pain Solution (NO KETOROLAC) IV (13:43)
--- NOTE | 2025-05-18 14:26 | PCM.POST.ANE ---
Anesthesia: Postop Eval I Current Vital Signs Temperature: 97.3 F Pulse Rate: 72 Blood Pressure: 97/58 Respiratory Rate: 14 Pulse Ox: 95 Oxygen Delivery Method: Simple Mask Oxygen Flow Rate (L/min): 6 Assessment Airway patent: Yes Spontaneous unlabored respirations: Yes Mental status: Awake nausea: No Vomiting: No Anesthesia Complication: No Fluid Hydration Crystalloid volume administer (ml): 1,400 Total IV fluid infused: 1,400 Progress Note Anesthesia document: Postop Eval 1 completed: Yes
[2025-05-18] MEDS: fentaNYL 100 MCG/2 ML Ampul IV (14:35)
--- NOTE | 2025-05-18 14:54 | PCM.OPRPT ---
Operative Report (Standard) Operative Information Date of Procedure: 05/18/25 Pre-Operative Diagnosis: Right hip primary osteoarthritis Post-Operative Diagnosis: Right hip primary osteoarthritis Surgery/Procedure Performed: Right minimally invasive direct anterior total replacement block engraver: Yes Assistant Professor Of Business: Lorena Cheng Tasks completed by assistant manager airside operations: Other (See body of operative report) Type of Anesthesia: Spinal RN Documented Start/Stop Times: Operation Date: 05/18/25 12:00 Case Time Into Pre-Op 05/18/25 10:13 Anesthesia Start 05/18/25 12:10 Into Room 05/18/25 12:10 Procedure Start 05/18/25 12:32 Procedure End 05/18/25 14:41 Anesthesia End 05/18/25 14:47 Out of Room 05/18/25 14:47 Into Recovery 05/18/25 14:50 Procedure Start Time: 12:32 Procedure Stop Time: 14:41 Select all DRAINS/GRAFTS/IMPLANTS that apply: Prosthetic device Prosthetic device details: See body of operative report Special Medications: 2 g Ancef, 1 g TXA at incision, 1 g TXA closure, 10 mg Decadron, joint cocktail (5 mg Duramorph, 30 mL of 0.5% Ropivicaine, 1000 units of epinephrine, 30 mg of Toradol) Estimated Blood Loss: 400 mL Fluids Replaced: 1400 mL crystalloid Specimen collected: Yes Description of specimen(s) removed: Bony cuts Description of surgery: Components used: 1. Accolade 2 Arnulfo femoral stem size 5/127 2. Arnulfo trident 2 acetabular shell size 56 mm 3. Quinton X3 polyethylene F 4. Arnulfo Biolox delta 36 mm, +5 mm femoral head Brief history operative indications: 70yo male who failed conservative measures for their hip osteoarthritis. X-rays were consistent with osteoarthritis including joint space narrowing, osteophyte formation and subchondral cysts. Total hip replacement was discussed with the patient with risks and benefits including but not limited to blood loss, DVTs, PEs, neurovascular damage, dislocation, general risks of anesthesia including loss of life. Patient demonstrated an understanding medical clearance is obtained the patient was consented for surgery. Procedure: On the date of procedure the patient's R hip was marked in the preoperative area. Patient was then taken back to the operating room where anesthesia assumed control of the C-spine and airway and administered anesthetic. Patient was transferred to the operating table and placed in the supine position. The hips were placed at the break of the bed and a sacral bump was placed. The R lower extremity was then prepped out in a sterile fashion using chlorhexidine while the surgeon scrubbed. The PA was vital in the positioning of the patient. Upon reentering the room the R lower extremity was draped in the standard orthopedic fashion and the incision was marked. A timeout was called and everyone agreed upon the side, the site, the procedure be performed, antibody given, and patient's identity. At this time incision was made through skin, subcutaneous tissue, and fat down to fascia. The fascia was then incised and the TFL was retracted laterally. A retractor was placed on the lateral border of the femoral neck. Attention was directed to the inferior portion of the approach and all crossing vessels were identified and appropriately coagulated. A retractor was then placed on the medial portion of the femoral neck. The anterior capsule was then cleared of all soft tissue and then H shaped capsulotomy was made. The retractors were then placed inside the capsule. The femoral neck was identified and a cleanup cut was made. At this time a power corkscrew was used to remove the femoral head. Attention was then turned toward the acetabulum where the soft tissues were appropriately retracted and the acetabulum was registered for robotics after placing 2 pins in the iliac crest. After this the robot was brought in and the robotic arm was used and the acetabulum was reamed to 56 mm. A 56 mm cup was then selected and impacted into place using the robotic arm. Acetabular liner was impacted into place and locking mechanism was verified. The position of the acetabular cup was then verified under live fluoroscopy. Pins were then removed from the iliac crest. Attention was then turned to the femur. Soft tissue releases on the medial and lateral femoral neck were appropriately done, the leg was externally rotated and lateralized. A Damon retractor was placed medially and proximally to the greater trochanter this allowed appropriate visualization and exposure of the femoral canal. Rongeour was then used to remove excess lateral bone. A canal finder and entry broach were used to open the proximal canal. Once we verified we were down the femoral canal we subsequently broached up to a size 5 femur. The appropriate neck was placed in the previously selected head was trialed with a 5 mm neck. Traction was pulled and the hip was reduced with internal rotation. Once it was appropriately reduced and stability was checked. There was minimal shuck, equal leg lengths and appropriate stability with hyperextension and external rotation as well as with 90° flexion and internal rotation. Fluoroscopy was then also used to verify the position of the components and leg lengths using the contralateral side for comparison. The trial components were then dislocated the proximal femur was again exposed and the components were removed from the wound. The final components were verified and opened. The wound was copiously irrigated out with normal saline. The acetabulum was checked for any residual debris. The final components were placed and impacted. Traction and internal rotation were again used to reduce the hip. After adequate reduction the hip remained stable with appropriate leg lengths. The final components were once again checked with live fluoroscopy and were found to be satisfactory. The wound was then copiously irrigated with normal saline once more, and hemostasis was obtained. Closure was then done using #1 Vicryl runner to close the fascia. A 2-0 vicryl interuppted sutures were used to close the subcutaneous skin. A 3-0 Monocryl and Steri-Strips were used for final skin closure. A Silverlon dressing was placed. Patient was awakened by anesthesia and transferred to the [facility]. Patient was then transferred to the PACU for recovery. Postoperative plan: Patient will get 24 hours postop antibiotics. Patient will get in-house physical therapy and will be weight-bear as tolerated. Patient will follow up in office in 2 weeks for a wound check and x-rays. Resume home dose warfarin tomorrow. During the course of the procedure the physician founder and chief technical officer (PE) played a vital role. Their intimate knowledge of my steps in the procedure aided in safe and expedient completion of the procedure. The PE played a vital rolls in positioning particularly in obtaining the appropriate positioning of the sacral bump. The PE was also vital in the retraction of soft tissues during the exposure and especially the femoral work as this is a vital part of the procedure to prevent complications and fractures. The PE was also vital and protecting soft tissues during times of bony cuts and reaming. He also played a vital role in closure with my direct supervision. The PE was also important during reduction and dislocation of the joint and trials intraoperatively. Surgical Findings: Stable hip with equal leg lengths Complications Complications: No Admit VTE Documentation VTE Present on Admission: Yes VTE Mechan Device Prophylaxis: SCD's and Thigh High ANTONIO Hose VTE Pharm Prophylaxis ordered?: Yes
[2025-05-18] MEDS: LR 1,000 ML - BOLUS POSTOP 999 ML IV (14:58)
--- NOTE | 2025-05-18 15:00 | RAD_ITS ---
PROCEDURE: HIP, UNI W/ PELVIS 2-3 VIEWS 05/18/2025 REASON FOR EXAM: TANJA TECHNIQUE: Procedure Code: [facility] Modality: DX Procedure: HIP, UNI W/ PELVIS 2-3 VIEWS Laterality: Right COMPARISON: March 10, 2024 FINDINGS: Bones: Bone mineralization is normal. No fraction. Joints: New right hip replacement appears anatomic and uncomplicated. Severe joint space narrowing and osteophytosis left hip. Soft tissues: Minimal amount of gas in the soft tissues around the right hip. RAD/HIP, UNI W/ Pelvis 2-3 Views IMPRESSION: Uncomplicated right hip replacement. Reading Location: [id number]
--- NOTE | 2025-05-18 16:07 | POSTOPAN2_ITS ---
Anesthesia Postop Eval I Sum Postop Eval Completion status Anesthesia document: Postop Eval 1 completed: Yes Anesthesia Postop Eval I Summary Anesthesia Postop Eval I Summary: Anesthesia Postop Eval I: Assessment Summary Airway patent Yes 05/18/25 14:28 [email or web address] [email or web address] Spontaneous unlabored Yes 05/18/25 14:28 [email or web address] [email or web address] respirations Mental status Awake 05/18/25 14:28 [email or web address] nausea No 05/18/25 14:28 [email or web address] Vomiting No 05/18/25 14:28 [email or web address] Anesthesia Postop Eval I: Fluid Summary Crystalloid volume administer 1,400 05/18/25 14:28 [email or web address] [email or web address] (ml) Colloids volume administered ( ml) Blood Product volume administered (ml) Total IV fluid infused 1,400 05/18/25 14:28 [email or web address] [email or web address] Anesthesia Postop Eval I: Summary Notes Anesthesia Complication No 05/18/25 14:28 [email or web address] Anesthesia Complication Comment: Post-operative progress note Anesthesia: Postop Eval II Evaluation Mental status: Awake and Calm Pain Level: 1 nausea: No Vomiting: No Complications Anesthesia Complication: No
--- NOTE | 2025-05-18 16:07 | PCM.POSTANE2 ---
Anesthesia Postop Eval I Sum Postop Eval Completion status Anesthesia document: Postop Eval 1 completed: Yes Anesthesia Postop Eval I Summary Anesthesia Postop Eval I Summary: Anesthesia Postop Eval I: Assessment Summary Airway patent Yes 05/18/25 14:28 [email or web address] Spontaneous unlabored Yes 05/18/25 14:28 [email or web address] [email or web address] respirations Mental status Awake 05/18/25 14:28 [email or web address] [email or web address] nausea No 05/18/25 14:28 [email or web address] Vomiting No 05/18/25 14:28 [email or web address] Anesthesia Postop Eval I: Fluid Summary Crystalloid volume administer 1,400 05/18/25 14:28 [email or web address] (ml) Colloids volume administered ( ml) Blood Product volume administered (ml) Total IV fluid infused 1,400 05/18/25 14:28 [email or web address] Anesthesia Postop Eval I: Summary Notes Anesthesia Complication No 05/18/25 14:28 [email or web address] Anesthesia Complication Comment: Post-operative progress note Anesthesia: Postop Eval II Evaluation Mental status: Awake and Calm Pain Level: 1 nausea: No Vomiting: No Complications Anesthesia Complication: No
--- NOTE | 2025-05-18 17:02 | PCM.CONS.GEN ---
Assessment & Plan Assessment/Plan (1) Status post right hip replacement: PLAN: Plan Patient is a 70-year-old male who presented [facility] on 05/18/2025 for planned right hip replacement. Medicine consulted postoperatively for medical management. 1. Right hip primary osteoarthritis – Orthopedic surgery primary. S/p right total hip replacement with Dr. Nj on 05/18. Tolerated procedure well, no intraoperative complications noted. Postoperative pain control and further management per orthopedics. Follow-up a.m. CBC and BMP. PT/OT/case management consulted. 2. Persistent A-fib/hypertension – Patient in rate controlled A-fib postoperatively and mildly hypotensive to the low 100s over 60s. Per orthopedics, plan to resume home warfarin on 05/19. Okay to restart home metoprolol this evening with hold parameters. Will hold off on restarting home lisinopril and amlodipine until 05/19 with hold parameters in place as well. 3. Anxiety/depression – Stable. Continue home sertraline. 4. Class II obesity – BMI 35.8 on admit. Complicates hospital course and care. DVT prophylaxis: Not indicated, on warfarin Total clinical time spent by myself addressing the patient's medical issues, reviewing all the data, and collaborating with patient's care team: 37 minutes. HPI Consult Data Date of Consult: 05/18/25 HPI Narrative Reason for Consultation: Postoperative medical management HPI Narrative: SIRISHA DE LEON, is a 70 M who presented to [facility] ED on 05/18/2025 for planned orthopedic procedure. Medicine consulted postoperatively for medical management. Medical history significant for right hip primary osteoarthritis. Patient had right minimally invasive right total hip replacement done with Dr. jN today. Tolerated procedure well, no intraoperative complications noted. I saw the patient at bedside earlier this evening, present. Patient was mildly fatigued appearing but otherwise sitting back comfortably in bed and answer questions appropriately. He reported a dull aching discomfort in his right hip currently but stated this pain was tolerable. Denied any sharp pain or radiation of the pain. No other acute concerns currently. [facility] Medical History Shortness of breath on exertion Wears glasses Cancer Anxiety Arthritis Non-smoker History of edema Hypertension History of atrial fibrillation History of stress test History of echocardiogram Cardiology follow-up encounter Hyperlipidemia Obesity Essential (primary) hypertension Lymphoma Persistent atrial fibrillation Renal insufficiency Home Medications Medication Instructions Recorded Last Taken Type acetaminophen 500 mg tablet 500 mg PO Q6H PRN pain 02/29/24 05/17/25 History lorazepam 0.5 mg tablet 0.5 mg PO QDAY PRN anxiety 01/16/25 Unknown History warfarin 4 mg tablet 4 mg PO .COMPLEX BLOOD THINNER 01/16/25 05/12/25 History amlodipine 5 mg tablet 5 mg PO QHS HEART 04/22/25 05/17/25 History lisinopril 40 mg tablet 40 mg PO QHS HYPERTENSION 04/22/25 05/17/25 History metoprolol succinate 50 mg 50 mg PO QHS HYPERTENSION 04/22/25 05/17/25 History tablet,extended release 24 hr sertraline 50 mg tablet 50 mg PO DAILY 04/22/25 Unknown History cholecalciferol (vitamin D3) 25 25 mcg PO DAILY 05/18/25 Unknown History mcg (1,000 unit) capsule (Vitamin D3) Allergy/AdvReac Type Severity Reaction Status Date / Time Seasonal Allergies: Uncoded AdvReac Other Verified 05/18/25 10:57 (environmental) Family History Grandmother Hypertension Father FH: aortic aneurysm Surgical History History of lumbar fusion History of wisdom tooth extraction History of cardioversion (05/15/16) History of renal stent History of right inguinal hernia repair Social History Smoking Status: Never smoker alcohol intake: never substance use type: does not use caffeine: Yes Type: coffee Number of servings: 1 what type of physical activity do you participate in: none seatbelt use: always do you feel safe at home: Yes ROS Constitutional Constitutional: Denies chills, fatigue, fever(s) or weakness Eyes Eyes: Denies change in vision Cardiovascular Cardiovascular: Denies chest pain Respiratory/Chest Respiratory/Chest: Denies shortness of breath at rest Gastrointestinal Gastrointestinal: Denies abdominal pain Musculoskeletal Musculoskeletal: Reports joint pain; Denies arthralgias or myalgias Neurologic Neurologic: Denies dizziness, focal weakness, numbness or tingling Physical Exam Const alert, oriented x3 and no apparent distress Constitutional Narrative: Elderly male, class II obesity, mildly fatigued appearing, otherwise sitting back comfortably in bed, answering questions appropriately, in no acute distress. General Appearance: cooperative and comfortable HEENT normocephalic, head/scalp atraumatic, hearing grossly normal bilaterally, nasal mucous membranes and turbinates normal and moist oral mucous membranes Eyes PERRL, EOMs intact bilaterally and conjunctivae normal Neck full ROM Chest inspection of chest normal Resp normal respiratory effort, normal air movement, no use of accessory muscles and clear to auscultation bilaterally Cardio regular rate, regular rhythm, no murmurs and peripheral pulses 2+ throughout GI normal to inspection, nondistended, normoactive bowel sounds, soft to palpation, non-tender and non-distended Back/Spine normal ROM Extremity Extremity Narrative: Right hip with dressing and ice pack in place. Mild tenderness to palpation in the lateral hip area. Skin no rashes or lesions noted Psych mental status grossly normal Lab / Micro Data 04/28/25 13:41 04/28/25 13:41 Labs: Laboratory Results - last 24 hr 05/18/25 10:58: POC Glucose 154 H Imaging Radiology Impression Hip/Pelvis X-Ray 05/18/25 11:37 IMPRESSION: As per findings. Reading Location: [place] [id number] Hip/Pelvis X-Ray 05/18/25 15:00 IMPRESSION: Uncomplicated right hip replacement. Reading Location: [id number] Charges/Coding Visit Charges Inpatient E&M: 74436 Subs Hosp L2
[2025-05-18] MEDS: 0.9% Saline Lock 10 ML Syringe IV (18:09)
[2025-05-18] MEDS: Senna/Docusate Sodium 1 Tablet 2 TABLET PO (20:39)
[2025-05-18] MEDS: Cefazolin 1 GM/50 ML BAG IV (20:39)
[2025-05-19 00:33] VITALS: BP 126/74; PULSE 77; RESP 16; TEMP 36.9; O2SAT 94
[2025-05-19] MEDS: 0.9% Normal Saline (250mL Bag) 250 ML 15 ML IV (02:25)
[2025-05-19] MEDS: Cefazolin 1 GM/50 ML BAG IV (04:10)
[2025-05-19 04:18] VITALS: BP 128/66; PULSE 72; RESP 17; TEMP 36.7; O2SAT 97
[2025-05-19 06:35] LABS: Hematocrit 37.7 % (40-54); Hemoglobin 12.8 g/dL (13.0-16.5); Immature Granulocytes Count 0.090 X10^3/uL (0.0-0.0); Mean Corp Hgb Conc 34.0 g/dL (32-36); Mean Corpuscular Volume 88.5 fL (80-94); Mean Platelet Vol. 11.2 fl (6.2-12.0); NRBC Flagged by Analyzer 0 % (0-5); POSITIVE DIFFERENTIAL YES; Platelet Count 204 K/mm3 (150-450); RBC Distribution Width CV 13.7 % (11.6-14.6); RBC Distribution Width SD 44.1 fl (35.1-43.9); Red Blood Count 4.26 M/mm3 (4.6-6.2); White Blood Count 14.7 K/mm3 (4.4-11.0)
[2025-05-19 07:04] LABS: Anion Gap 13 (5-15); BUN 20 mg/dL (4-19); BUN/Creat Ratio 16.1 RATIO (10-20); Calcium,Total 8.8 mg/dL (7.6-11.0); Carbon Dioxide 21.9 mmol/L (21.0-32.0); Chloride 103 mmol/L (98-108); Estimated Creatinine Clearance 65.29 ml/min (50-250); Glucose 147 mg/dL (70-99); Potassium 4.4 mmol/L (3.3-5.1)
[2025-05-19] MEDS: Cholecalciferol (VIT D3) 25 MCG TABLET (1,000 UNITS) PO (07:57)
[2025-05-19] MEDS: Senna/Docusate Sodium 1 Tablet 2 TABLET PO (07:57)
[2025-05-19 08:04] VITALS: BP 102/70; PULSE 61; RESP 18; TEMP 36.5; O2SAT 93
--- NOTE | 2025-05-19 08:05 | PN.HOSP_ITS ---
Subjective Subjective Doing well, no issues overnight. Pain is controlled. He did have a little bit of a reactive leukocytosis but otherwise lab work is unremarkable and renal function at baseline Objective Data Objective Data Vital Signs: Vital Signs Temp Pulse Resp BP Pulse Ox O2 Del Method O2 Flow Rate 98.0 F 72 17 128/66 H 97 Room Air 2 05/19/25 04:18 05/19/25 04:18 05/19/25 04:18 05/19/25 04:18 05/19/25 04:18 05/19/25 04:18 05/18/25 16:33 Oxygen Flow Rate (L/min) 2 Oxygen Delivery Method Room Air Weight: 235 lb 10.786 oz Body Mass Index (BMI) 35.8 Intake & Output: Intake and Output for Last 24 Hours 05/18/25 05/19/25 05/20/25 03:59 03:59 03:59 Intake Total 3792 / 3792 1050 / 1050 Output Total 550 / 550 800 / 800 Balance 3242 / 3242 250 / 250 Lab / Micro Data 05/19/25 06:14 05/19/25 06:14 Labs: Laboratory Results - last 24 hr 05/18/25 10:58: POC Glucose 154 H 05/19/25 06:14: WBC 14.7 H, RBC 4.26 L, Hgb 12.8 L, Hct 37.7 L, MCV 88.5, MCH 30.0, MCHC 34.0, RDW Std Deviation 44.1 H, RDW Coeff of Jerry 13.7, Plt Count 204, MPV 11.2, Immature Gran % (Auto) 0.600, Neut % (Auto) 87.7 H, Lymph % (Auto) 3.8 L, Stoddard % (Auto) 7.8, Eos % (Auto) 0.0, Baso % (Auto) 0.1, Absolute Neuts (auto) 12.9 H, Absolute Lymphs (auto) 0.56 L, Nucleated RBC % 0, Sodium 138, Potassium 4.4, Chloride 103, Carbon Dioxide 21.9, Anion Gap 13, BUN 20 H, Creatinine 1.23 H, Estim Creat Clear Calc 65.29, Est GFR (MDRD) Non-Af 63, BUN/Creatinine Ratio 16.1, Glucose 147 H, Calcium 8.8 Micro: Microbiology 04/28/25 13:41 Swab (Method) Nasal Screen MRSA/MSSA - Final Radiography Diagnostic Testing: Radiology Impression Hip/Pelvis X-Ray 05/18/25 11:37 IMPRESSION: As per findings. Reading Location: [place] [id number] Hip/Pelvis X-Ray 05/18/25 15:00 IMPRESSION: Uncomplicated right hip replacement. Reading Location: [facility] Physical Exam Narrative General: Alert, Oriented x3, Cooperative, No apparent distress HEENT: Atraumatic, PERRLA, EOMI, Normocephalic Oral: Moist Mucosa Neck: Supple, No JVD Lungs: Diminished, Normal air movement, No rhonchi, No wheeze, No rales Cardiovascular: Regular rate, Regular Rhythm, Normal S1, Normal S2, No murmurs Abdomen: Soft, Non Tender, Non-Distended, No Hepato-splenomegaly Extremities: No edema, Capillary Refill Less than 3 Seconds Skin: Dressing CDI Musculoskeletal: No Tenderness to Palpation of Joints or Extremities Neurological: No focal neurological deficits, moves all extremities Psych/Mental Status: Normal Affect, Appropriate Assessment & Plan Assessment/Plan (1) Status post right hip replacement: PLAN: Plan 1. Right hip primary osteoarthritis status post right total hip replacement on 05/18/2025 – Orthopedic surgery primary. – PT/OT – Pain control – Renal function type baseline – Medically stable for discharge – Leukocytosis is reactive 2. Persistent A-fib/essential HTN – Patient in rate controlled A-fib postoperatively and mildly hypotensive – Can resume his Coumadin on 05/19/2025 per Ortho – Continue with his home blood pressure medications 3. Anxiety/depression – Stable – Continue home sertraline. DVT: Warfarin Will sign off Charges/Coding Visit Charges Office Visits / Consults: [id number] OV L3 Est 20min
[2025-05-19 08:10] LABS: INR Fingerstick 1.3
--- NOTE | 2025-05-19 08:51 | PCM.PN.ORT ---
Subjective Subjective Patient is sitting comfortably in bed upon examination. Patient states that he does plan on going home with his girlfriend at this time. Patient states that her house is perfectly set up for him and is handicapped accessible. Patient states that he does feel comfortable going home with his girlfriend. Patient states that his pain is adequately controlled. Patient denies any nausea, vomiting, dizziness. Patient denies any shortness of breath, chest pain, calf pain. Patient denies any new numbness or tingling. Patient denies any adverse events overnight. Objective Data Objective Data Vital Signs: Vital Signs Temp Pulse Resp BP Pulse Ox O2 Del Method O2 Flow Rate 97.7 F L 61 18 102/70 93 Room Air 2 05/19/25 08:04 05/19/25 08:04 05/19/25 08:04 05/19/25 08:04 05/19/25 08:04 05/19/25 08:04 05/18/25 16:33 Oxygen Flow Rate (L/min) 2 Oxygen Delivery Method Room Air Weight: 106.9 kg Body Mass Index (BMI) 35.8 Intake & Output: Intake and Output for Last 24 Hours 05/17/25 05/18/25 05/19/25 23:59 23:59 23:59 Intake Total 3392 / 3792 1450 / 1450 Output Total 400 / 550 950 / 950 Balance 2992 / 3242 500 / 500 Lab / Micro Data 05/19/25 06:14 05/19/25 06:14 Labs: Laboratory Results - last 24 hr 05/18/25 10:09: POC PT 14.9, INR 1.3 05/18/25 10:58: POC Glucose 154 H 05/19/25 06:14: WBC 14.7 H, RBC 4.26 L, Hgb 12.8 L, Hct 37.7 L, MCV 88.5, MCH 30.0, MCHC 34.0, RDW Std Deviation 44.1 H, RDW Coeff of Jerry 13.7, Plt Count 204, MPV 11.2, Immature Gran % (Auto) 0.600, Neut % (Auto) 87.7 H, Lymph % (Auto) 3.8 L, Traverse % (Auto) 7.8, Eos % (Auto) 0.0, Baso % (Auto) 0.1, Absolute Neuts (auto) 12.9 H, Absolute Lymphs (auto) 0.56 L, Nucleated RBC % 0, Sodium 138, Potassium 4.4, Chloride 103, Carbon Dioxide 21.9, Anion Gap 13, BUN 20 H, Creatinine 1.23 H, Estim Creat Clear Calc 65.29, Est GFR (MDRD) Non-Af 63, BUN/Creatinine Ratio 16.1, Glucose 147 H, Calcium 8.8 Micro: Microbiology 04/28/25 13:41 Swab (Method) Nasal Screen MRSA/MSSA - Final Radiography Diagnostic Testing: Radiology Impression Hip/Pelvis X-Ray 05/18/25 11:37 IMPRESSION: As per findings. Reading Location: [place] [id number] Hip/Pelvis X-Ray 05/18/25 15:00 IMPRESSION: Uncomplicated right hip replacement. Reading Location: [id number] Physical Exam Narrative ANTONIO hose in place bilaterally SCDs in place bilaterally Dressing is with bloody drainage over the distal one third of dressing. Right hip is soft and supple. Dorsiflexion and plantarflexion are performed actively without pain or restriction Sensation intact light touch. Neurovascularly intact overall. Negative Homans bilaterally. Const alert, oriented x3 and no apparent distress Assessment & Plan Assessment/Plan (1) Status post right hip replacement: PLAN: Status post right total hip arthroplasty day 1. 1. DVT prophylaxis: Patient will be taking his regularly scheduled warfarin following surgery. Patient was educated to wear ANTONIO hose for 2 weeks postoperatively. Patient was educated he can remove ANTONIO hose for showering and at night. 2. Pain medications: Patient will be taking Tylenol 1000 mg every 8 hours patient was educated not to take more than 3000 mg in 24 hours, oxycodone as needed for postoperative pain medication. Patient was educated while he is on warfarin he cannot take any anti-inflammatory medications. Patient voiced understanding. OARRS report was reviewed today. Patient was instructed to use minimal amount of narcotic pain medication to control her pain. Patient was educated not to operate heavy equipment or drive a motor vehicle while taking narcotic pain medication. Patient voiced understanding. 3. Constipation: Patient will be taking senna as instructed until his first bowel movement to decrease the risk of impaction following surgery. Patient was instructed if she has not yet had a bowel movement in 3 days contact our office for reevaluation. 4. Physical therapy: Patient will continue to be weightbearing as tolerated walker. Patient has not worked with physical therapy at this point. Patient will follow anterior hip precautions. Patient does have outpatient physical therapy scheduled. 5. H&H: 12.8/37.7. Vitals are stable and afebrile. 7. Reactive leukocytosis: White blood cell count is currently 14.7. Patient did receive Decadron intraoperatively. Vital signs are stable and patient is afebrile at this time. 8. Incentive spirometry: Patient was encouraged to use incentive spirometer every hour that he is awake for the first week to exercise along decrease risk postoperative lung infection. 9. Dressings: Patient was educated to remove dressing on postop day 5. Patient was educated can leave open to air as long as incision is clean, dry, intact. 10. Medicine is on board at this time. Will continue to keep medicine on board to monitor chronic disease. 11. Patient is to follow-up per postoperative instructions. 12. Disposition: We will plan for discharge at this time as long as patient's pain maintains adequately controlled, patient works with and is cleared by physical therapy, and patient is medically stable per medicine doctors recommendations. Patient does have outpatient physical therapy scheduled at this time. Patient does have 2-week follow-up visit scheduled with our office for a wound check. Patient was educated on different medications that would be sent to the pharmacy. Patient states that he does have Tylenol Extra Strength, senna at home already. Patient states he does not feel he needs Zofran at this time. Patient would like his medication sent to [facility] pharmacy. Patient will continue to be weightbearing as tolerated. Postoperative instructions were gone over with patient at length. Patient was encouraged to call with any questions, concerns, new problems.
--- NOTE | 2025-05-19 09:04 | DCINST_ITS ---
Discharge Instructions DC O2, CPAP, BIPAP needs Home O2 Discharge instructions: No Dressing / Incision Discharge Activity: May Not Drive (No driving for 6 weeks postoperatively.) Weight Bearing Status: Weight bearing as tolerated (With walker. Follow a nterior hip precautions.) Keep extremity elevated above heart level: Right Leg (Ice and elevate as needed.) Dressing / Incision Call your doctor if your incision/area has: Continuous Slow Oozing, Sudden Increased Bleeding, Increased Pain/ Swelling, Increased Redness, Foul Smelling Discharge and Swelling at the incision site Call your doctor if you observe: Fever of 101 or Higher, Coldness, Increased Pain, Numbness or Tingling, Change in Color, Inability to urinate, Inability to have a bowel movement, Using more than 1 pad per hour, Shortness of breath, Dizziness, Fainting spells, Swelling in the ankles, Chest pain, Increased palpitations (irregular heartbeat), Calf discomfort and Uncontrolled pain Remove Dressing in: 5 days (Remove dressing on day 5 postop. As long as incision is clean, dry, intact may leave open to air.) Cleanse incision/area with: Soap & Water (Gentle soap and water in the shower.) Additional Dressing/Incision Instructions:: No soaking or submerging for 6 weeks postoperatively. No lotions, salves, oils for 6 weeks postoperatively. OARRS report was reviewed today. Follow Up Care Test Results: Test results from this visit will be discussed in further detail at your follow- up appointment, if applicable. Discharge Plan Admission Admit Date/Time: 05/18/25 07:02 Attending Provider: Norm Nj Primary Care Provider: Americo Menendez Consulting Providers: Montez Arrieta Discharge Orders/Prescriptions Prescriptions: New sennosides-docusate sodium [Stimulant Laxative Plus] 8.6-50 mg Tablet 2 tab PO BID Qty: 0 0RF Rx Instructions: Take until first bowel movement and then can take as needed. famotidine 20 mg Tablet 20 mg PO DAILY 30 Days Qty: 30 0RF oxycodone 5 mg Tablet 5 - 10 mg PO Q4H PRN PRN (Reason: As needed for pain.) 7 Days Qty: 42 0RF Continued warfarin 4 mg tablet 4 mg PO .COMPLEX Protocol: Dose Management Condition: Sunday Dose/Route: 2 mg Instruction: 0.5 x 4 mg tablets Condition: Sunday Dose/Route: 4 mg Instruction: 1 x 4 mg tablet Condition: Sunday Dose/Route: 2 mg Instruction: 0.5 x 4 mg tablets Condition: Sunday Dose/Route: 2 mg Instruction: 0.5 x 4 mg tablets Condition: Dose/Route: 2 mg Instruction: 0.5 x 4 mg tablets Condition: Sunday Dose/Route: 2 mg Instruction: 0.5 x 4 mg tablets Condition: Sunday Dose/Route: 2 mg Instruction: 0.5 x 4 mg tablets Protocol Text: Adjustment Start Date: Sunday03/13/25 INR Value: 2.2 INR Date: 03/13/25 Recheck Date: 04/12/25 Patient Comments: STOP 5 DAYS PRIOR TO PROCEDURE 05/13/25 Rx Instructions: Take 4 mg on , 2 mg all other days.; lorazepam 0.5 mg tablet 0.5 mg PO QDAY PRN (Reason: anxiety) sertraline 50 mg tablet 50 mg PO DAILY metoprolol succinate 50 mg tablet extended release 24 hr 50 mg PO QHS amlodipine 5 mg tablet 5 mg PO QHS lisinopril 40 mg tablet 40 mg PO QHS cholecalciferol (vitamin D3) [Vitamin D3] 25 mcg (1,000 unit) capsule 25 mcg PO DAILY acetaminophen 500 mg tablet 500 mg PO Q6H PRN (Reason: pain) 30 Days Qty: 0 0RF Rx Instructions: Take 1000 mg every 8 hours for pain. Do not take more than 3000 mg in 24 hours. Referrals / Follow Up: Americo Menendez MD [Primary Care Provider, Family Practice] Disposition Disposition (needs filled in before D/C Order can be placed): Home, Self Care
--- NOTE | 2025-05-19 09:53 | CASEMGMT ---
JENKINS Met with patient to complete JENKINS form. JENKINS form and its content were verbally explained and patient's questions were answered to the best of my ability. Patient voiced understanding and signed JENKINS form. Patient provided a copy of signed JENKINS form and original placed in patient's chart. Patient had no further questions. Luisana Cheung, Discharge Planning Asst
--- NOTE | 2025-05-19 10:03 | PHA.DC_ITS ---
Pharmacy [facility] Counseling Pharmacy Service has performed discharge medication reconciliation and counseling for this patient. The patient's discharge medication list was reviewed for discrepancies and discrepancies were resolved. The patient was counseled on the following discharge medications and changes in medications for homegoing were reviewed. The Reason for Use, instructions for use, and potential side effects were reviewed for all new medications. The patient's questions regarding all of their medications were answered. 1. Oxycodone 5-10 mg PO Q4H PRN pain 2. Famotidine 20 mg PO daily 3. senna/docusate 2 tablets PO BID The patient was able to verbally demonstrate an understanding of their discharge medications. Medications at Discharge Home Medications lorazepam 0.5 mg tablet 0.5 mg PO QDAY PRN anxiety 01/16/25 warfarin 4 mg tablet 4 mg PO .COMPLEX BLOOD THINNER 01/16/25 amlodipine 5 mg tablet 5 mg PO QHS HEART 04/22/25 lisinopril 40 mg tablet 40 mg PO QHS HYPERTENSION 04/22/25 metoprolol succinate 50 mg tablet,extended release 24 hr 50 mg PO QHS HYPERTENSION 04/22/25 sertraline 50 mg tablet 50 mg PO DAILY 04/22/25 cholecalciferol (vitamin D3) 25 mcg (1,000 unit) capsule (Vitamin D3) 25 mcg PO DAILY 05/18/25 acetaminophen 500 mg tablet 500 mg PO Q6H PRN pain 30 days #0 tabs 05/19/25 famotidine 20 mg tablet 20 mg PO DAILY 30 days #30 tabs 05/19/25 oxycodone 5 mg tablet 5 - 10 mg (1 - 2 x 5 mg) PO Q4H PRN PRN As needed for pain. 7 days #42 tabs 05/19/25 sennosides 8.6 mg-docusate sodium 50 mg tablet (Stimulant Laxative Plus) 2 tab PO BID #0 tabs 05/19/25
--- NOTE | 2025-05-19 11:38 | CASEMGMT ---
Reviewed therapy juanjose. DELORES CM into pt room, pt sitting up in chair with sig other at bedside. Pt states he feels safe to go home. Pt has his walker present in room. Pt has outpt therapy set up at [facility] to start on . Pt has a ramp to enter the home and has other DME such as shower chair if he should need it. Pt sig other is able to assist pt as needed. Pt denies any homegoing needs. DC Plan: Home with OP therapy.
[2025-05-19 11:39] VITALS: BP 114/59; PULSE 65; RESP 18; TEMP 36.2; O2SAT 94
== END 2025-05-19 13:08 | disposition home or self-care (01) ==
LOC: AC 10:33 → MS3 18:20 → SDC 05-19 09:13 → AC 05-19 09:13 → SDC 05-19 09:13 → MS3 05-19 09:14
PROVIDERS: Admitting Provider Specialist; PCP Family Medicine; Referring Provider Specialist; Visit Provider Specialist
PROC: 8E0Y0CZ Robotic Assisted Procedure of Lower Extremity, Open Approach (ICD-10-PCS; CPT 27130; principal; 2025-05-18 11:30)
DX: M16.11 Unilateral primary osteoarthritis, right hip (principal); I48.19 Other persistent atrial fibrillation; Z79.01 Long term (current) use of anticoagulants; E78.5 Hyperlipidemia, unspecified; I10 Essential (primary) hypertension; F41.9 Anxiety disorder, unspecified; F32.A Depression, unspecified; Z79.899 Other long term (current) drug therapy; E66.812 Obesity, class 2; Z68.35 Body mass index [BMI] 35.0-35.9, adult
CPT/HCPCS: 27130; S2900; 01214; 36415; 36416; 73501; 73502; 76000; 80048; 82040; 82962; 83735; 85025; 85610; 87081; 93005; 94668; 96365; 96366; 97162; 97166; 99221; C1776; A4216; G0378; J2405; J3475

== ENCOUNTER 2025-06-03 14:02 | Outpatient (RCR) | payer MEDICARE, OTHER, SELFPAY ==
[2025-06-03 14:17] LABS: INR Fingerstick 2.8
== END 2025-06-03 18:00 | disposition home or self-care (01) ==
LOC: MTLAB 14:02
PROVIDERS: Family Provider Family Medicine; PCP Family Medicine; Referring Provider Internal Medicine Cardiovascular Disease; Visit Provider Internal Medicine Cardiovascular Disease
DX: I48.19 Other persistent atrial fibrillation (principal); Z79.01 Long term (current) use of anticoagulants
CPT/HCPCS: 36416; 85610

== ENCOUNTER 2025-07-09 13:02 | Outpatient (RCR) | payer MEDICARE, OTHER, SELFPAY ==
[2025-07-09 13:11] LABS: INR Fingerstick 2.9
== END 2025-07-19 18:00 | disposition home or self-care (01) ==
LOC: MTLAB 13:02
PROVIDERS: Family Provider Family Medicine; PCP Family Medicine; Referring Provider Internal Medicine Cardiovascular Disease; Visit Provider Internal Medicine Cardiovascular Disease
DX: I48.19 Other persistent atrial fibrillation (principal); Z79.01 Long term (current) use of anticoagulants
CPT/HCPCS: 36416; 85610

== ENCOUNTER → 2025-07-31 | Outpatient (CLI) | payer MEDICARE, OTHER, SELFPAY ==
[2025-07-31 12:55] LABS: Anion Gap 14 (5-15); BUN 17 mg/dL (4-19); BUN/Creat Ratio 12.9 RATIO (10-20); Calcium,Total 9.5 mg/dL (7.6-11.0); Carbon Dioxide 23.7 mmol/L (21.0-32.0); Chloride 103 mmol/L (98-108); Cholesterol 201 mg/dL (<=200); Glucose 98 mg/dL (70-99); Low Density Lipoprotein Calc. 139 mg/dL; Potassium 3.8 mmol/L (3.3-5.1); Triglycerides 168 mg/dL; Very Low Density Lipoprotein 34 mg/dL (5-40); cholesterol:hdl ratio screen 6.46
== END | disposition home or self-care (01) ==
LOC: MTLAB 09:50
PROVIDERS: PCP Family Medicine; Referring Provider Family Medicine; Visit Provider Family Medicine
DX: I10 Essential (primary) hypertension (principal)
CPT/HCPCS: 36415; 80048; 80061